=== PATIENT | female | born 1970 | race Caucasian/White ===

== ENCOUNTER 2019-02-26 09:54 | Emergency (ER) | payer SELFPAY ==
[~2019-02-26] VITALS: Ht 160 cm; Wt 90.7 kg
[2019-02-26] MEDS ORDERED: IV NORMAL SALINE 1,000ML 1,000 ML IV SCH (10:07)
--- NOTE | 2019-02-26 10:17 | EKG ---
[address] [address] Test Date: 2019-02-26 Test Time: 10:17:12 Pat Name: CHRIS SWANSON Department: Room: Gender: F [employer]: : 1970 Requested By: VIRI SIMENTAL Order Number: [id number] [place] MD: Measurements Intervals [place] Rate: 83 P: 24 LA: 152 QRS: 31 QRSD: 86 T: 14 QT: 366 QTc: 436 Interpretive Statements SINUS RHYTHM NO SPECIFIC ECG ABNORMALITIES RI6.01 No previous ECG available for comparison
--- NOTE | 2019-02-26 10:35 | PHYS DOC ---
Past History Past Medical History: Anxiety, Bipolar, Schizophrenia, Other Past Surgical History: No Surgical History Smoking: Cigarettes Alcohol Use: Occasionally Drug Use: Methamphetamine Adult General Chief Complaint Chief Complaint: SHORTNESS OF BREATH HPI HPI Patient is a 48-year-old female presents complaining of feeling like she was going to pass out. This happened this morning. Lasted for 4-5 minutes. No worsening with exertion. She reported some chest heaviness, this did not get any worse with ambulation. No respirophasic chest discomfort. Symptoms have resolved. She denies any nausea or vomiting. No trauma. She reports that her last use of methamphetamine was one week ago. She does smoke 4-5 cigarettes a day.[] Review of Systems Review of Systems Constitutional: Denies fever or chills [] Eyes: Denies change in visual acuity, redness, or eye pain [] HENT: Denies nasal congestion or sore throat [] Respiratory: Denies cough or shortness of breath [] Cardiovascular: No additional information not addressed in HPI [] GI: Denies abdominal pain, nausea, vomiting, bloody stools or diarrhea [] : Denies dysuria or hematuria [] Musculoskeletal: Denies back pain or joint pain [] Integument: Denies rash or skin lesions [] Neurologic: Denies headache, focal weakness or sensory changes [] Endocrine: Denies polyuria or polydipsia [] All other systems were reviewed and found to be within normal limits, except as documented in this note. Current Medications Current Medications Current Medications Medications (Trade) Dose Ordered Sig/[facility] Start Time Stop Time Status Last Admin Dose Admin Sodium Chloride 1,000 ml @ 1,000 mls/hr Q1H 02/26/19 10:07 02/26/19 11:06 02/26/19 10:28 1,000 MLS/HR Allergies Allergies Allergies Coded Allergies Type Severity Reaction Last Updated Verified Penicillins Allergy Severe anaphylaxis 02/26/19 Yes morphine Allergy Severe anaphylaxis 11/24/16 Yes carbamazepine Allergy Intermediate 02/26/19 Yes Physical Exam Physical Exam Constitutional: Well developed, well nourished, no acute distress, non-toxic appearance. [] HENT: Normocephalic, atraumatic, bilateral external ears normal, oropharynx moist, no oral exudates, nose normal. [] Eyes: PERRLA, EOMI, conjunctiva normal, no discharge. [] Neck: Normal range of motion, no tenderness, supple, no stridor. [] Cardiovascular:Heart rate regular rhythm, no murmur [] Lungs & Thorax: Bilateral breath sounds clear to auscultation [] Abdomen: Bowel sounds normal, soft, no tenderness, no masses, no pulsatile masses. [] Skin: Warm, dry, no erythema, no rash. [] Back: No tenderness, no CVA tenderness. [] Extremities: No tenderness, no cyanosis, no clubbing, ROM intact, no edema. [] Neurologic: Alert and oriented X 3, normal motor function, normal sensory function, no focal deficits noted. [] Psychologic: Affect normal, judgement normal, mood normal. [] Current Patient Data Vital Signs Vital Signs Date Time Temp Pulse Resp B/P (MAP) Pulse Ox O2 Delivery O2 Flow Rate FiO2 02/26/19 09:58 97.6 94 18 97 Room Air EKG EKG EKG shows a sinus rhythm at 83 bpm, normal axis, QTC of 436 ms, no ST elevations. Interpreted by me at 1017[] Radiology/Procedures Radiology/Procedures PORTABLE CHEST 1V History: Near-syncope. Comparison with February 11, 2010. Heart size not enlarged. No evidence of pneumothorax. No pleural effusion. No consolidation. Bones appear intact. IMPRESSION: No evidence of consolidating infiltrate.[] Course & Med Decision Making Course & Med Decision Making Pertinent Labs and Imaging studies reviewed. (See chart for details) ED course: Patient arrived, was placed in bed, and tolerated exam well. She was placed on cardiac cath rn. There were no abnormal heart rhythms noted. Her oxygen saturation remained between 99 and 100% during her emergency department stay. After the return of the laboratory and imaging studies, these were discussed with the patient voiced understanding. All questions were answered. She was discharged in improved condition. Medical decision making: There is no evidence of pneumonia, pneumothorax, acute coronary syndrome. She has no PE risk factors. No evidence of hypoxia.[] Dragon Disclaimer Dragon Disclaimer This electronic medical record was generated, in whole or in part, using a voice recognition dictation system. Departure Departure: Impression: Primary Impression: Shortness of breath Disposition: HOME, SELF-CARE Condition: IMPROVED Referrals: PCPWILLIAM (PCP) Patient Instructions: Shortness of Breath Additional Instructions: Follow-up with your regular doctor in 2 days. If you do not have a regular doctor list of local clinics will be provided for you. Stop smoking! Do not use any drugs or medications that are not prescribed for you, they may kill you! Return to the ER if worsening difficulty breathing or any other concerns. VIRI SIMENTAL DO Feb 26, 2019 10:35
--- NOTE | 2019-02-26 10:41 | RAD ---
PORTABLE CHEST 1V History: Near-syncope. Comparison with February 11, 2010. Heart size not enlarged. No evidence of pneumothorax. No pleural effusion. No consolidation. Bones appear intact. IMPRESSION: No evidence of consolidating infiltrate. Electronically signed by: Mich Rojo MD (02/26/2019 10:38 AM) [id number]
[2019-02-26 10:50] LABS: BASO # 0.1 x10^3/uL (0.0-0.2); BASO % 1 % (0-3); EOS % 0 % (0-3); HEMATOCRIT 40.4 % (36.0-47.0); HEMOGLOBIN 13.6 g/dL (12.0-15.5); LYMPH # 1.4 x10^3/uL (1.0-4.8); LYMPH % 17 % (24-48); MEAN CORPUSCULAR HEMOGLOBIN 29 pg (25-35); MEAN CORPUSCULAR HGB CONC 34 g/dL (31-37); MEAN CORPUSCULAR VOLUME 84 fL (79-100); MONO # 0.3 x10^3/uL (0.0-1.1); MONO % 4 % (0-9); NEUT # 6.3 x10^3uL (1.8-7.7); NEUT % 77 % (31-73); PLATELET COUNT 300 x10^3/uL (140-400); RED CELL DISTRIBUTION WIDTH 14.5 % (11.5-14.5); WHITE BLOOD COUNT 8.2 x10^3/uL (4.0-11.0)
[2019-02-26 11:06] LABS: PREG TEST PT QUAL NEGATIVE (NEG)
[2019-02-26 11:10] LABS: ALBUMIN 3.6 g/dL (3.4-5.0); ALBUMIN/GLOBULIN RATIO 0.9 (1.0-1.7); CALCIUM 9.7 mg/dL (8.5-10.1); CREATININE 0.8 mg/dL (0.6-1.0); GFR 77.2; TOTAL BILIRUBIN 0.3 mg/dL (0.2-1.0); TOTAL PROTEIN 7.6 g/dL (6.4-8.2)
[2019-02-26 11:11] LABS: AMPHETAMINE/METHAMPHETAMINE NEG (NEG); BARBITURATES NEG (NEG); BENZODIAZEPINES NEG (NEG); CANNABINOIDS NEG (NEG); COCAINE NEG (NEG); METHADONE NEG (NEG); OPIATES NEG (NEG); PHENCYCLIDINE NEG (NEG)
[2019-02-26 11:23] LABS: BACTERIA,URINE FEW /HPF (0-FEW); BILIRUBIN,URINE NEG (NEG); CLARITY,URINE HAZY; COLOR,URINE STRAW; GLUCOSE,URINE NEG (NEG); NITRITE,URINE NEG (NEG); RBC,URINE OCC /HPF (0-2); SQUAMOUS EPITHELIAL CELL,UR FEW /LPF; UROBILINOGEN,URINE 0.2 mg/dL (0.2 mg/dL); WBC,URINE OCC /HPF (0-4)
[2019-02-26 12:05] VITALS: BP 105/56
== END 2019-02-26 12:06 | disposition home or self-care (01) ==
LOC: ER 09:54
DX: R06.02 Shortness of breath (principal); R55 Syncope and collapse; F41.9 Anxiety disorder, unspecified; F31.9 Bipolar disorder, unspecified; F20.9 Schizophrenia, unspecified; F17.210 Nicotine dependence, cigarettes, uncomplicated; F15.10 Other stimulant abuse, uncomplicated; Z88.5 Allergy status to narcotic agent; Z88.0 Allergy status to penicillin; Z88.8 Allergy status to other drugs, medicaments and biological substances
CPT/HCPCS: 36415; 71045; 80053; 80307; 81001; 83690; 83735; 83880; 84484; 84703; 85025; 85610; 93005; 96360; 99285-25; J7030

== ENCOUNTER → 2020-04-20 | Outpatient (CLI) | payer SELFPAY ==
--- NOTE | 2020-04-20 16:39 | RAD ---
DATE: 04/20/2020 8:45 AM EXAM: DIGITAL SCREEN BILAT W/CAD HISTORY: Screening . Patient has very tender breasts with limited tolerance of mammographic compression and positioning. COMPARISON: 07/25/2011, and the bilateral MLO views of 05/18/2019 Bilateral CC and MLO views of the breasts were performed. Bilateral breast tomosynthesis was performed in CC and MLO projections. This study was interpreted with the benefit of Computerized Aided Detection (CAD). FINDINGS: Breast Density: SCATTERED The breast parenchyma shows scattered fibroglandular densities. Breast parenchyma level B No suspicious masses, microcalcifications or architectural distortion is present to suggest malignancy in either breast. The visualized axillae are unremarkable. IMPRESSION: No mammographic evidence of malignancy. BI-RADS CATEGORY: 1 NEGATIVE RECOMMENDED FOLLOW-UP: 12M 12 MONTH FOLLOW-UP Annual screening mammography is recommended, unless clinically indicated sooner based on symptoms or change in physical exam. PQRS compliance statement: Patient information was entered into a reminder system with a target due date for the next mammogram. Mammography is a sensitive method for finding small breast cancers, but it does not detect them all and is not a substitute for careful clinical examination. A negative mammogram does not negate a clinically suspicious finding and should not result in delay in biopsying a clinically suspicious abnormality. "Our facility is accredited by the [employer] Mammography Program."
== END | disposition home or self-care (01) ==
LOC: MAMMO 08:44
DX: Z12.31 Encounter for screening mammogram for malignant neoplasm of breast (principal)
CPT/HCPCS: 77067

== ENCOUNTER → 2020-08-04 | Outpatient (CLI) | payer OTHER ==
[~2020-08-04] MED LIST: HYDR25TA PO
[2020-08-05 05:08] LABS: T3 TOTAL 110 ng/dL (71-180); THYROPEROXIDASE ANTIBODY 16 IU/mL (0-34); THYROXINE 7.4 ug/dL (4.5-12.0)
[2020-08-05 18:08] LABS: ANTI-DS DNA 1 IU/mL (0-9); RNP ANTIBODY <0.2 AI (0.0-0.9); SMITH AB <0.2 AI (0.0-0.9); SSA ANTIBODY <0.2 AI (0.0-0.9); SSB ANTIBODY <0.2 AI (0.0-0.9)
== END ==
LOC: LAB 10:58
PROVIDERS: ATTEND Nurse Practitioner Family
DX: R76.8 Other specified abnormal immunological findings in serum (principal); R79.82 Elevated C-reactive protein (CRP)
CPT/HCPCS: 36415; 84436; 84443; 84480; 86235; 86255; 86376; 86800

== ENCOUNTER → 2020-08-07 | Outpatient (CLI) | payer OTHER | LOC: LAB 16:14 | PROVIDERS: ATTEND Nurse Practitioner Family | DX: R76.8 Other specified abnormal immunological findings in serum (principal); R79.82 Elevated C-reactive protein (CRP) | CPT/HCPCS: 36415 ==

== ENCOUNTER 2020-08-09 07:50 | Emergency (ER) | payer OTHER ==
[~2020-08-09] VITALS: Ht 160 cm; Wt 96.5 kg
--- NOTE | 2020-08-09 08:12 | PHYS DOC ---
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 Is starting a new job today and took 2 tablets of Mu cinex (has never taken this medication before) around 6 AM because she has a chronic cough from her COPD. Is worried she will not be able to work if she is coughing at work due to covid19. States she has been too busy and forgot to take her olanzapine the past 3 days. Cough is not new and is not associated with any sore throat, fever, hemoptysis, nausea, vomiting or flulike illness. Denies any SI or HI. Also reports increased thirst/polydipsia, nausea and dry mouth. Has voided 2x today. Review of Systems: Review of Systems: Constitutional: Denies fever or chills Eyes: Denies change in visual acuity HENT: Denies nasal congestion or sore throat Respiratory: Denies hemoptysis or shortness of breath Cardiovascular: Denies chest pain or edema or syncope GI: Denies abdominal pain, nausea, vomiting, bloody stools or diarrhea : Denies dysuria or hematuria Musculoskeletal: Denies back pain or joint pain or cva ttp Integument: Denies rash Neurologic: Denies headache, focal weakness or sensory changes or neck stiffness Endocrine: Denies polyuria or suprapubic discomfort Lymphatic: Denies swollen glands Psychiatric: Denies depression or anxiety Allergies: Allergies: Allergies Coded Allergies Type Severity Reaction Last Updated Verified Penicillins Allergy Severe anaphylaxis 02/26/19 Yes morphine Allergy Severe anaphylaxis 11/24/16 Yes carbamazepine Allergy Intermediate 02/26/19 Yes Physical Exam: PE: Constitutional: Well developed, well nourished, no acute distress, non-toxic appearance. HENT: Normocephalic, atraumatic, no angioedema, speaking in full sentences with no drooling or voice changes Eyes: EOMI, conjunctiva normal, no discharge. Neck: Normal range of motion, supple, Cardiovascular: S1/2 present, regular rhythm, tachycardic Lungs & Thorax: Speaking in full sentences, bilateral equal chest rise, no tachypnea or increased work of breathing, no wheezing/rales/crackles Abdomen: soft, no tenderness, Skin: Warm, dry, no erythema, no rash. [] Back: No tenderness, Extremities: No tenderness, no cyanosis, no edema Neurologic: Alert and oriented X 3, normal motor function, normal sensory function, no focal deficits noted. [] Psychologic: Very anxious with rapid speech and jittery, no tremors EKG: EKG: [] Radiology/Procedures: Radiology/Procedures: [] Heart Score: Risk Factors: Risk Factors: DM, Current or recent (<one month) smoker, HTN, HLP, family history of CAD, obesity. Risk Scores: Score 0 - 3: 2.5% MACE over next 6 weeks - Discharge Home Score 4 - 6: 20.3% MACE over next 6 weeks - Admit for Clinical Observation Score 7 - 10: 72.7% MACE over next 6 weeks - Early Invasive Strategies Course & Med Decision Making: Course & Med Decision Making Pertinent Labs and Imaging studies reviewed. (See chart for details) Concern for acute panic attack, anxiety versus medication adverse effect. Offered Xanax although patient does not have a ride home. Will prescribe Atarax prn. Strict ED return precautions were given for inability urinate, fever, chest pain, dyspnea, SI or HI. Encouraged urgent outpatient follow-up with PMD and psychiatry. Life-threatening processes were considered but are low suspicion at this time, given history and physical exam. Pt was educated on all prescription medications and adverse effects. All patient's questions were answered and pt was stable at time of discharge. Life/limb-threatening differential includes but is not limited to, end organ damage/sepsis, trauma/abuse/neglect, neurologic deficit, alcohol/drug ingestion, toxidrome, suicidal/homicidal ideations plans or attempts, psychosis or mental illness resulting in self neglect and inability to care for self. I spoken with the patient and her caregivers. I explained the patient's condition, diagnoses and treatment plan based on the information available to me at this time. I have answered the patient and her caregiver's questions and addressed any concerns. The patient and her caregivers have a good understanding of patient's diagnosis, condition and treatment plan as can be expected at this point. Vital signs have been stable. Patient's condition is stable and appropriate for discharge from the emergency department. Patient will pursue further outpatient evaluation with primary care physician or other designated or consulting physician as outlined in the discharge instructions. The patient and/or caregivers are agreeable to this plan of care and follow-up instructions have been explained in detail. The patient and/or caregivers have received these instructions in written form and have expressed an understanding of the discharge instructions. The patient and/or caregivers are aware that any significant change of condition or worsening of symptoms should prompt immediate return to this or the closest emergency department or call to 911. Caleb Disclaimer: [email or web address] Disclaimer: This electronic medical record was generated, in whole or in part, using a voice recognition dictation system. Departure Departure: Impression: Primary Impression: Anxiety Additional Impression: Medication adverse effect Disposition: 01 DC HOME SELF CARE/HOMELESS Condition: STABLE Referrals: PCP,NO (PCP) FOLLOW UP WITH FAMILY MEDICINE: [facility] [address] [place] [address] Instructions: Anxiety and Panic Attacks, Drug Toxicity Additional Instructions: FOLLOW UP WITH PSYCHIATRY: [facility] [address] [place] [address] [facility] [address] [place] [address] Nubia Woodard [facility] [address], [address] [place] [address] EMERGENCY DEPARTMENT GENERAL DISCHARGE INSTRUCTIONS Thank you for coming to [facility] (ED) today and trusting us with you care. We trust that you had a positivie experience in our Emergency Department. If you wish to speak to the department management, you may call the director at [phone]. YOUR FOLLOW UP INSTRUCTIONS ARE FOLLOWS: 1. Do you have a private Doctor? If you do not have a private doctor, please ask for a resource list of physicians or clinics that may be able to assist you with follow up care. 2. The Emergency Physician has interpreted your x-rays. The X-Ray specialist will also review them. If there is a change in the findings, you will be notified in 48 hours when at all possible. 3. A lab test or culture has been done, your results will be reviewed and you will be notified if you need a change in treatment. ADDITIONAL INSTRUCTIONS AND INFORMATION: 1. Your care today has been supervised by a physician who is specially trained in emergency care. Many problems require more than one evaluation for a complete diagnosis and treatment. We recommend that you schedule your follow up appointment as recommended to ensure complete treatment of you illness or injury. If you are unable to obtain follow up care and continue to have a problem, or if your condition worsens, we recommend that you return to the ED. 2. We are not able to safely determine your condition over the phone nor are we able to give sound medical advice over the phone. For these safety reasons, if you call for medical advice we will ask you to come to the ED for further evaluation. 3. If you have any questions regarding these discharge instructions please call the ED at [phone]. SAFETY INFORMATION: In the interest of safety, wellness, and injury prevention; we encourage you to wear your sealbelt, if you smoke; quite smoking, and we encourage family to use a protective helmet for bicycling and other sporting events that present an increased risk for head injury. IF YOUR SYMPTOMS WORSEN OR NEW SYMPTOMS DEVELOP, OR YOU HAVE CONCERNS ABOUT YOUR CONDITION; OR IF YOUR CONDITION WORSENS WHILE YOU ARE WAITING FOR YOUR FOLLOW UP APPOINTMENT; EITHER CONTACT YOUR PRIMARY CARE DOCTOR, THE PHYSICIAN WHOSE NAME AND NUMBER YOU WERE GIVEN, OR RETURN TO THE ED IMMEDIATELY. Scripts Hydroxyzine Hcl (HYDROXYZINE HCL) 25 Mg Tablet 1 TAB PO PRN BID for anxiety, #10 TAB 0 Refills Be careful as this medication may make you mildly tired. I recommend not driving on this medication or operating heavy machinery. Prov: BUSTER LLOYD DO 08/09/20 BUSTER LLOYD DO Aug 09, 2020 08:12
[2020-08-09] MEDS ORDERED: ALPRAZolam 0.25 MG TABLET PO ONE (08:15)
[2020-08-09] MEDS ORDERED: HYDR25TA PO (08:24)
[2020-08-09 08:38] VITALS: BP 118/85
== END 2020-08-09 08:40 | disposition home or self-care (01) ==
LOC: ER 07:50
DX: F41.9 Anxiety disorder, unspecified (principal); T48.4X5A Adverse effect of expectorants, initial encounter; F31.9 Bipolar disorder, unspecified; F20.9 Schizophrenia, unspecified; F17.210 Nicotine dependence, cigarettes, uncomplicated; F15.10 Other stimulant abuse, uncomplicated; Z88.0 Allergy status to penicillin; Z88.5 Allergy status to narcotic agent; Z88.8 Allergy status to other drugs, medicaments and biological substances; Y92.89 Other specified places as the place of occurrence of the external cause
CPT/HCPCS: 99283

== ENCOUNTER → 2020-09-05 | Outpatient (CLI) | payer OTHER ==
[2020-08-09 08:38] VITALS: BP 118/85
--- NOTE | 2020-09-05 14:14 | RAD ---
EXAM: CHEST 2 VIEWS. HISTORY: Chronic obstructive pulmonary disease, cough. COMPARISON: 02/26/2019. FINDINGS: Frontal and lateral views of the chest are obtained. There are no confluent infiltrates. There is no pneumothorax or pleural effusion. The heart is not en larged. Cholecystectomy clips and an inferior vena cava filter are noted. IMPRESSION: 1. No confluent infiltrates. Electronically signed by: Rupert Gracia MD (09/05/2020 2:12 PM) [facility]
== END ==
LOC: RAD 10:11
PROVIDERS: ATTEND Nurse Practitioner Family
DX: R05 Cough (principal); J43.9 Emphysema, unspecified; Z90.49 Acquired absence of other specified parts of digestive tract
CPT/HCPCS: 71046

== ENCOUNTER 2020-11-14 02:21 | Emergency (ER) | payer SELFPAY ==
[~2020-11-14] VITALS: Ht 160 cm; Wt 96.5 kg
[2020-11-14 02:21] VITALS: BP 159/96
[2020-11-14] MEDS ORDERED: IV NORMAL SALINE 1,000ML 1,000 ML IV ONE (02:45)
[2020-11-14] MEDS ORDERED: ONDANSETRON PF 4 MG/2 ML VIAL. IVP ONE (02:45)
--- NOTE | 2020-11-14 02:54 | PHYS DOC ---
Past History Past Medical History: Anxiety, Asthma, Bipolar, COPD, Schizophrenia, Other Past Surgical History: Cholecystectomy, Tubal ligation Smoking: Cigarettes Alcohol Use: Occasionally Drug Use: Methamphetamine General Adult EDM: Chief Complaint: CELLULITIS HPI: HPI: Patient is a 50-year-old female brought in by EMS for chills, nausea, and left lower extremity pain and redness. Patient states that yesterday she cut her left kaba when she actually hit on the coffee table. Noticed around 8 PM about 6 hours prior to arrival that she was having pain after she stepped down and noticed the redness on her left lower leg. Denies any purulent drainage. She was recently started on hydroxychloroquine for antiphospholipid syndrome. States she felt well until 8 PM. Review of Systems: Review of Systems: All other systems within normal limits except for as noted in the HPI Current Medications: Current Meds: Current Medications Medications (Trade) Dose Ordered Sig/Chip Start Time Stop Time Status Last Admin Dose Admin Fentanyl Citrate (Fentanyl 2ml Vial) 50 mcg 1X ONCE 11/14/20 02:45 11/14/20 02:47 DC Ondansetron HCl (Zofran) 4 mg 1X ONCE 11/14/20 02:45 11/14/20 02:47 DC Sodium Chloride 1,000 ml @ 1,000 mls/hr 1X ONCE 11/14/20 02:45 11/14/20 03:44 Allergies: Allergies: Allergies Coded Allergies Type Severity Reaction Last Updated Verified Penicillins Allergy Severe anaphylaxis 02/26/19 Yes morphine Allergy Severe anaphylaxis 11/24/16 Yes carbamazepine Allergy Intermediate 02/26/19 Yes sulfamethoxazole Allergy Unknown 08/09/20 Yes trimethoprim Allergy Unknown 08/09/20 Yes Physical Exam: PE: Constitutional: Well developed, well nourished, no acute distress, non-toxic appearance. [] HENT: Normocephalic, atraumatic, bilateral external ears normal, nose normal. [] Eyes: PERRLA, conjunctiva normal, no discharge. [] Neck: No rigidity, supple, no stridor. [] Cardiovascular: Regular rate and rhythm, brisk cap refill [] Lungs & Thorax: Non labored symmetric respirations, no tachypnea or respiratory distress [] Abdomen: Soft, nondistended. Skin: Warm, dry, superficial abrasion to left anterior kaba, surrounding warmth and erythema, no crepitus or fluctuance. [] Back: Unremarkable Extremities: No deformities, range of motion grossly intact, no lower extremity edema [] Neurologic: Alert and oriented X 3, no focal deficits noted. [] Psychologic: Affect normal, judgement normal, mood normal. [] EKG: EKG: [] Radiology/Procedures: Radiology/Procedures: Study: XR LT TIBIA + FIBULA Indication: Infection. Comparison: None. Findings: No acute fracture, erosion or periostitis. Possible sequela of remote trauma at the tip of the lateral malleolus. Within normal limits alignment at the knee and ankle joints. Reticulation of the subcutaneous fat as seen at the anteromedial aspect of the distal lower leg along the tibial diaphysis. Impression: No acute osseous abnormality. Reticulation of the subcutaneous fat at the region of reported infection without appreciable soft tissue gas or retained radiopaque foreign body. [] Heart Score: Risk Factors: Risk Factors: DM, Current or recent (<one month) smoker, HTN, HLP, family history of CAD, obesity. Risk Scores: Score 0 - 3: 2.5% MACE over next 6 weeks - Discharge Home Score 4 - 6: 20.3% MACE over next 6 weeks - Admit for Clinical Observation Score 7 - 10: 72.7% MACE over next 6 weeks - Early Invasive Strategies Course & Med Decision Making: Course & Med Decision Making Given 40 mEq of potassium p.o. emergency department will continue with potassium as outpatient. Labs consistent with cellulitis, LRINEC score 5= low risk of neck fasc, no free air seen on x-ray. Patient's mother is at bedside and we discussed the plan, follow-up and return to ED precautions. Pertinent Labs and Imaging studies reviewed. (See chart for details) [] Dragon Disclaimer: Dragon Disclaimer: This electronic medical record was generated, in whole or in part, using a voice recognition dictation system. Departure Departure: Impression: Primary Impression: Hypokalemia Additional Impression: Cellulitis of left lower leg Disposition: 01 DC HOME SELF CARE/HOMELESS Condition: STABLE Patient Instructions: Cellulitis, [id number] Additional Instructions: [facility] for primary care follow-up Address: [address] [address] Scripts Clindamycin Hcl (CLINDAMYCIN HCL) 300 Mg Capsule 1 CAP PO TID for antibiotic for 10 Days, #30 CAP Prov: KHANG DOYLE MD 11/14/20 Potassium Chloride (POTASSIUM CHLORIDE ) 20 Meq Tablet.er 20 MEQ PO DAILY for SUPPLEMENT for 5 Days, #5 TAB Prov: KHANG DOYLE MD 11/14/20 KHANG DOYLE MD Nov 14, 2020 02:54
[2020-11-14] MEDS ORDERED: CLINDAMYCIN 600MG PREMIX 50 ML IV ONE (03:15)
[2020-11-14 03:23] LABS: BASO # 0.1 x10^3/uL (0.0-0.2); BASO % 1 % (0-3); EOS % 0 % (0-3); HEMATOCRIT 39.4 % (36.0-47.0); HEMOGLOBIN 12.9 g/dL (12.0-15.5); LYMPH # 1.2 x10^3/uL (1.0-4.8); LYMPH % 9 % (24-48); MEAN CORPUSCULAR HEMOGLOBIN 27 pg (25-35); MEAN CORPUSCULAR HGB CONC 33 g/dL (31-37); MEAN CORPUSCULAR VOLUME 83 fL (79-100); MONO # 0.6 x10^3/uL (0.0-1.1); MONO % 4 % (0-9); NEUT # 11.5 x10^3uL (1.8-7.7); NEUT % 86 % (31-73); PLATELET COUNT 310 x10^3/uL (140-400); RED BLOOD COUNT 4.73 x10^6/uL (3.50-5.40); RED CELL DISTRIBUTION WIDTH 14.1 % (11.5-14.5); WHITE BLOOD COUNT 13.4 x10^3/uL (4.0-11.0)
[2020-11-14 03:42] LABS: ALBUMIN 3.9 g/dL (3.4-5.0); ALBUMIN/GLOBULIN RATIO 0.9 (1.0-1.7); CALCIUM 8.9 mg/dL (8.5-10.1); TOTAL PROTEIN 8.2 g/dL (6.4-8.2)
[2020-11-14 03:43] LABS: C REACTIVE PROTEIN 21.5 mg/L (0-3.3); CREATININE 0.9 mg/dL (0.6-1.0); GFR 66.8; MAGNESIUM 2.1 mg/dL (1.8-2.4); TOTAL BILIRUBIN 0.8 mg/dL (0.2-1.0)
[2020-11-14 03:45] LABS: POTASSIUM 2.9 mmol/L (3.5-5.1)
--- NOTE | 2020-11-14 04:07 | RAD ---
Study: XR LT TIBIA + FIBULA Indication: Infection. Comparison: None. Findings: No acute fracture, erosion or periostitis. Possible sequela of remote trauma at the tip of the latera l malleolus. Within normal limits alignment at the knee and ankle joints. Reticulation of the subcutaneous fat as seen at the anteromedial aspect of the distal lower leg along the tibial diaphysis. Impression: No acute osseous abnormality. Reticulation of the subcutaneous fat at the region of reported infectio n without appreciable soft tissue gas or retained radiopaque foreign body. Electronically signed by: HAILEY HOPKINS MD (11/14/2020 4:04 AM) [facility]
[2020-11-14] MEDS ORDERED: POTASSIUM CHLORIDE 20 MEQ TABLET.ER. PO ONE (04:15)
[2020-11-14] MEDS ORDERED: POTA20TA4 PO (04:41)
[2020-11-14] MEDS ORDERED: CLIN300C9 PO (04:41)
[2020-11-14] MEDS ORDERED: ONDANSETRON ODT 4 MG TAB.RAPDIS PO ONE (05:15)
[2020-11-14] MEDS ORDERED: ONDANSETRON ODT 4 MG TAB.RAPDIS ONE (05:17)
== END 2020-11-14 04:50 | disposition home or self-care (01) ==
LOC: ER 02:21
DX: S80.812A Abrasion, left lower leg, initial encounter (principal); L03.116 Cellulitis of left lower limb; E87.6 Hypokalemia; J44.9 Chronic obstructive pulmonary disease, unspecified; F31.9 Bipolar disorder, unspecified; F20.9 Schizophrenia, unspecified; F41.9 Anxiety disorder, unspecified; F17.210 Nicotine dependence, cigarettes, uncomplicated; Z88.0 Allergy status to penicillin; Z88.5 Allergy status to narcotic agent; Z88.2 Allergy status to sulfonamides; Z88.1 Allergy status to other antibiotic agents; W22.8XXA Striking against or struck by other objects, initial encounter; Y93.89 Activity, other specified; Y92.89 Other specified places as the place of occurrence of the external cause; Y99.8 Other external cause status
CPT/HCPCS: 36415; 73590; 80053; 82550; 83605; 83735; 83874; 85025; 85610; 86140; 87040; 96365; 96375; 99284; J2405; J3010; J3490; J7030

== ENCOUNTER 2020-12-12 08:54 | Emergency (ER) | payer SELFPAY ==
[~2020-12-12] VITALS: Ht 160 cm; Wt 95.2 kg
[~2020-12-12 08:54] MED LIST changes: +CLIN300C9 PO; +POTA20TA4 PO
[2020-12-12] MEDS ORDERED: ONDANSETRON PF 4 MG/2 ML VIAL. IVP ONE (09:15)
--- NOTE | 2020-12-12 09:30 | RAD ---
XR ABDOMEN 1V History: Reason: abdominal pain / Spl. Instructions: / History: Technique: Supine views of the abdomen. Comparison: None. Findings: Mild small bowel gas. Air and stool scattered throughout the colon. IVC filter noted. Surgical clips right upper quadrant. Imaged lung bases are unremarkable. Impression: 1. Nonobstructed bowel gas pattern. Electronically signed by: Kevin Cottrell DO (12/12/2020 9:27 AM) [id number]
[2020-12-12 09:38] VITALS: BP 124/95
[2020-12-12 09:44] LABS: BASO % 1 % (0-3); EOS % 1 % (0-3); HEMATOCRIT 41.2 % (36.0-47.0); HEMOGLOBIN 13.6 g/dL (12.0-15.5); LYMPH # 1.6 x10^3/uL (1.0-4.8); LYMPH % 21 % (24-48); MEAN CORPUSCULAR HEMOGLOBIN 28 pg (25-35); MEAN CORPUSCULAR HGB CONC 33 g/dL (31-37); MEAN CORPUSCULAR VOLUME 84 fL (79-100); MONO # 0.3 x10^3/uL (0.0-1.1); MONO % 4 % (0-9); NEUT # 5.7 x10^3uL (1.8-7.7); NEUT % 74 % (31-73); PLATELET COUNT 297 x10^3/uL (140-400); RED BLOOD COUNT 4.92 x10^6/uL (3.50-5.40); RED CELL DISTRIBUTION WIDTH 14.3 % (11.5-14.5); WHITE BLOOD COUNT 7.7 x10^3/uL (4.0-11.0)
[2020-12-12 09:55] LABS: CALCIUM 9.4 mg/dL (8.5-10.1); CREATININE 0.8 mg/dL (0.6-1.0); GFR 76.6; POTASSIUM 3.8 mmol/L (3.5-5.1)
[2020-12-12 10:01] LABS: ALBUMIN 3.6 g/dL (3.4-5.0); ALBUMIN/GLOBULIN RATIO 0.9 (1.0-1.7); TOTAL BILIRUBIN 0.5 mg/dL (0.2-1.0); TOTAL PROTEIN 7.6 g/dL (6.4-8.2)
[2020-12-12 10:06] LABS: PREG TEST PT QUAL NEGATIVE (NEG)
[2020-12-12] MEDS ORDERED: ONDA4TAB7 PO (11:12)
--- NOTE | 2020-12-12 11:12 | PHYS DOC ---
Past History Past Medical History: Bipolar, Constipation, Other Additional Past Medical Histor: Factor Five Past Surgical History: Cholecystectomy, Tubal ligation Smoking: Cigarettes Alcohol Use: Occasionally Drug Use: Methamphetamine Adult General Chief Complaint Chief Complaint: NAUSEA/VOMITING/DIARRHEA [facility] HPI Patient is a 42-year-old female with a documented history of constipation anxiety disorder presenting emergency department for new onset of nausea and diarrhea. Patient states this started with mild nausea approximately 4 days a go. Patient states at that time she did she was constipated and had not had a bowel movement for 4 days. Patient states that she took a "bowel cleanse p.o. oral regimen and was feeling better until 2 days ago when she started having mild amount of diarrhea. Patient states that she woke up this morning and mixed loose watery diarrhea and had ongoing nausea. Patient denies any acute abdominal pain, fever, chills, vomiting. Denies any history of similar symptoms. Review of Systems Review of Systems Constitutional: Denies fever or chills [] Eyes: Denies change in visual acuity, redness, or eye pain [] HENT: Denies nasal congestion or sore throat [] Respiratory: Denies cough or shortness of breath [] Cardiovascular: No additional information not addressed in HPI [] GI: Denies abdominal pain, nausea, vomiting, bloody stools or diarrhea [] : Denies dysuria or hematuria [] Musculoskeletal: Denies back pain or joint pain [] Integument: Denies rash or skin lesions [] Neurologic: Denies headache, focal weakness or sensory changes [] Endocrine: Denies polyuria or polydipsia [] All other systems were reviewed and found to be within normal limits, except as documented in this note. Current Medications Current Medications Current Medications Medications (Trade) Dose Ordered Sig/Chip Start Time Stop Time Status Last Admin Dose Admin Ondansetron HCl (Zofran) 4 mg 1X ONCE 12/12/20 09:15 12/12/20 09:22 DC 12/12/20 09:32 4 MG Allergies Allergies Allergies Coded Allergies Type Severity Reaction Last Updated Verified Penicillins Allergy Severe anaphylaxis 12/12/20 Yes morphine Allergy Severe anaphylaxis 12/12/20 Yes carbamazepine Allergy Intermediate 12/12/20 Yes sulfamethoxazole Allergy Unknown 12/12/20 Yes trimethoprim Allergy Unknown 12/12/20 Yes Physical Exam Physical Exam Constitutional: Well developed, well nourished, no acute distress, non-toxic appearance. [] HENT: Normocephalic, atraumatic, bilateral external ears normal, oropharynx moist, no oral exudates, nose normal. [] Eyes: PERRLA, EOMI, conjunctiva normal, no discharge. [] Neck: Normal range of motion, no tenderness, supple, no stridor. [] Cardiovascular:Heart rate regular rhythm, no murmur [] Lungs & Thorax: Bilateral breath sounds clear to auscultation [] Abdomen: Bowel sounds normal, soft, no tenderness, no masses, no pulsatile masses. [] Skin: Warm, dry, no erythema, no rash. [] Back: No tenderness, no CVA tenderness. [] Extremities: No tenderness, no cyanosis, no clubbing, ROM intact, no edema. [] Neurologic: Alert and oriented X 3, normal motor function, normal sensory function, no focal deficits noted. [] Psychologic: Affect normal, judgement normal, mood normal. [] Current Patient Data Vital Signs Vital Signs Date Time Temp Pulse Resp B/P (MAP) Pulse Ox O2 Delivery O2 Flow Rate FiO2 12/12/20 09:38 97.9 92 18 124/95 (105) 99 Room Air Lab Results Laboratory Tests Test 12/12/20 09:29 White Blood Count 7.7 x10^3/uL (4.0-11.0) Red Blood Count 4.92 x10^6/uL (3.50-5.40) Hemoglobin 13.6 g/dL (12.0-15.5) Hematocrit 41.2 % (36.0-47.0) Mean Corpuscular Volume 84 fL (79-100) Mean Corpuscular Hemoglobin 28 pg (25-35) Mean Corpuscular Hemoglobin Concent 33 g/dL (31-37) Red Cell Distribution Width 14.3 % (11.5-14.5) Platelet Count 297 x10^3/uL (140-400) Neutrophils (%) (Auto) 74 % (31-73) H Lymphocytes (%) (Auto) 21 % (24-48) L Monocytes (%) (Auto) 4 % (0-9) Eosinophils (%) (Auto) 1 % (0-3) Basophils (%) (Auto) 1 % (0-3) Neutrophils # (Auto) 5.7 x10^3uL (1.8-7.7) Lymphocytes # (Auto) 1.6 x10^3/uL (1.0-4.8) Monocytes # (Auto) 0.3 x10^3/uL (0.0-1.1) Eosinophils # (Auto) 0.0 x10^3/uL (0.0-0.7) Basophils # (Auto) 0.0 x10^3/uL (0.0-0.2) Sodium Level 138 mmol/L (136-145) Potassium Level 3.8 mmol/L (3.5-5.1) Chloride Level 105 mmol/L (98-107) Carbon Dioxide Level 21 mmol/L (21-32) Anion Gap 12 (6-14) Blood Urea Nitrogen 10 mg/dL (7-20) Creatinine 0.8 mg/dL (0.6-1.0) Estimated GFR (Cockcroft-Gault) 76.6 BUN/Creatinine Ratio 13 (6-20) Glucose Level 113 mg/dL (70-99) H Calcium Level 9.4 mg/dL (8.5-10.1) Total Bilirubin 0.5 mg/dL (0.2-1.0) Aspartate Amino Transferase (AST) 13 U/L (15-37) L Alanine Aminotransferase (ALT) 16 U/L (14-59) Alkaline Phosphatase 74 U/L (46-116) Total Protein 7.6 g/dL (6.4-8.2) Albumin 3.6 g/dL (3.4-5.0) Albumin/Globulin Ratio 0.9 (1.0-1.7) L Lipase 145 U/L (73-393) Serum Test, Qualitative Negative (NEG) EKG EKG [] Radiology/Procedures Radiology/Procedures [] Heart Score C/O Chest Pain: No Risk Factors: Risk Factors: DM, Current or recent (<one month) smoker, HTN, HLP, family history of CAD, obesity. Risk Scores: Risk Factors: DM, Current or recent (<one month) smoker, HTN, HLP, family history of CAD, obesity. Course & Med Decision Making Course & Med Decision Making Pertinent Labs and Imaging studies reviewed. (See chart for details) 50F presenting with nonspecific of diarrhea and nausea. No significant tenderness on exam. At this time without specific pain and tenderness unlikely to represent any evidence of acute appendicitis. Patient already has a cholecystectomy. Suspect mild gastroenteritis. Patient labs were obtained and unremarkable and KUB without any significant findings. After initial valuation patient is requesting to be discharged because he has an appointment with her primary care physician in an hour. Caleb Disclaimer Caleb Disclaimer This electronic medical record was generated, in whole or in part, using a voice recognition dictation system. Departure Departure: Impression: Primary Impression: Gastroenteritis Disposition: 01 DC HOME SELF CARE/HOMELESS Condition: GOOD Referrals: PCP,NO (PCP) Patient Instructions: Viral Gastroenteritis Additional Instructions: EMERGENCY DEPARTMENT GENERAL DISCHARGE INSTRUCTIONS Thank you for coming to [facility] Emergency Department (ED) today and trusting us with you care. We trust that you had a positive experience in our Emergency Department. If you wish to speak to the department management, you may call the Director at [phone]. YOUR FOLLOW UP INSTRUCTIONS ARE FOLLOWS: 1. Do you have a private Doctor? If you do not have a private doctor, please ask for a resource list of physicians or clinics that may be able to assist you with follow up care. 2. The Emergency Physicain has interpreted your x-rays. The X-Ray specialist will also review them. If there is a change in the findings, you will be notified in 48 hours when at all possible. 3. A lab test or culture has been done, your results will be reviewed and you will be notified if you need a change in treatment. ADDITIONAL INSTRUCTIONS AND INFORMATION: 1. Your care today has been supervised by a physician who is specially trained in emergency care. Many problems require more than one evaluation for a complete diagnosis and treatment. We recommend that you schedule your follow up appointment as recommended to ensure complete treatment of you illness or injury. If you are unable to obtain follow up care and continue to have a problem, or if your condition worsens, we recommend that you return to the ED. 2. We are not able to safely determine your condition over the phone nor are we able to give sound medical advice over the phone. For these safety reasons, if you call for medical advice we will ask you to come to the ED for further evaluation. 3. If you have any questions regarding these discharge instructions please call the ED at [phone]. SAFETY INFORMATION: In the interest of safety, wellness, and injury prevention; we encourage you to wear your sealbelt, if you smoke; quite smoking, and we encourage family to use a protective helmet for bicycling and other sporting events that present an increased risk for head injury. IF YOUR SYMPTOMS WORSEN OR NEW SYMPTOMS DEVELOP, OR YOU HAVE CONCERNS ABOUT YOUR CONDITION; OR IF YOUR CONDITION WORSENS WHILE YOU ARE WAITING FOR YOUR FOLLOW UP APPOINTMENT; EITHER CONTACT YOUR PRIMARY CARE DOCTOR, THE PHYSICIAN WHOSE NAME AND NUMBER YOU WERE GIVEN, OR RETURN TO THE ED IMMEDIATELY. Scripts Ondansetron Hcl (ZOFRAN) 4 Mg Tablet 1 TAB PO PRN Q6HRS PRN for NAUSEA, #6 TAB Prov: CASSY SAWYER MD 12/12/20 CASSY SAWYER MD Dec 12, 2020 11:12
== END 2020-12-12 11:35 | disposition home or self-care (01) ==
LOC: ER 08:54
DX: K52.9 Noninfective gastroenteritis and colitis, unspecified (principal); F41.9 Anxiety disorder, unspecified; F31.9 Bipolar disorder, unspecified; F17.210 Nicotine dependence, cigarettes, uncomplicated; Z90.49 Acquired absence of other specified parts of digestive tract; Z98.51 Tubal ligation status; Z88.0 Allergy status to penicillin; Z88.5 Allergy status to narcotic agent; Z88.2 Allergy status to sulfonamides; Z88.1 Allergy status to other antibiotic agents
CPT/HCPCS: 36415; 74018; 80053; 83690; 84703; 85025; 96374; 99284; J2405

== ENCOUNTER 2020-12-17 05:15 | Emergency (ER) | payer SELFPAY ==
[~2020-12-17] VITALS: Ht 160 cm; Wt 94.2 kg
[~2020-12-17 05:15] MED LIST changes: +ONDA4TAB7 PO
--- NOTE | 2020-12-17 05:41 | PHYS DOC ---
Past History Past Medical History: Bipolar, Constipation, Other Additional Past Medical Histor: Factor Five (DENA WILKES MD) Past Surgical History: Cholecystectomy, Tubal ligation (DENA WILKES MD) Smoking: Cigarettes Alcohol Use: Occasionally Drug Use: Methamphetamine (DENA WILKES MD) Adult General Chief Complaint Chief Complaint: NAUSEA/VOMITING/DIARRHEA HPI HPI Patient is a 50-year-old female who presents with nausea and vomiting. States she is in the emergency department about 5 days ago for similar symptoms, was told she had gastroenteritis and was sent home with some nausea medicine. States it helped a little but over the last 5 days she has had nausea, episodes of nonbloody nonbilious emesis over the last couple of days if she tries to eat. States she had not eaten anything substantial in the last 3 days outside of a couple of saltine crackers. States she had not had a bowel movement since last which was watery stool. States she mainly came in because she is unable to eat or drink anything currently because of the nausea. Denies any fevers, headache, chest pain, shortness of breath, dysuria, hematuria or blood in the stool. Denies any recent travel, known ill contacts. States she had her last menstrual cycle about 6 or 7 weeks ago, which is about normal for her now as it seems like they are becoming more irregular as she gets older. Denies any vaginal bleeding/discharge/pain or history of STIs. (DENA WILKES MD) Review of Systems Review of Systems Review of systems otherwise unremarkable except noted in HPI (DENA WILKES MD) Current Medications Current Medications Current Medications Medications (Trade) Dose Ordered Sig/Chip Start Time Stop Time Status Last Admin Dose Admin Iohexol (Omnipaque 300 Mg/ml) 75 ml 1X ONCE 12/17/20 05:45 12/17/20 05:46 UNV Lactated Ringer's 1,000 ml @ 1,000 mls/hr 1X ONCE 12/17/20 05:30 12/17/20 06:29 UNV Ondansetron HCl (Zofran) 8 mg 1X ONCE 12/17/20 05:30 12/17/20 05:31 UNV (DENA WILKES MD) Allergies Allergies Allergies Coded Allergies Type Severity Reaction Last Updated Verified Penicillins Allergy Severe anaphylaxis 12/12/20 Yes morphine Allergy Severe anaphylaxis 12/12/20 Yes carbamazepine Allergy Intermediate 12/12/20 Yes sulfamethoxazole Allergy Unknown 12/12/20 Yes trimethoprim Allergy Unknown 12/12/20 Yes (DENA WILKES MD) Physical Exam Physical Exam Constitutional: Well developed, well nourished, no acute distress, non-toxic appearance. [] HENT: Normocephalic, atraumatic, oropharynx moist, no oral exudates, Eyes: PERRLA, conjunctiva normal, no discharge. [] Neck: Normal range of motion, Cardiovascular:Heart rate regular rhythm, no murmur [] Lungs & Thorax: Bilateral breath sounds clear to auscultation [] Abdomen: Mild distention, generalized tenderness worse around the umbilicus, no masses, no pulsatile masses. [] Skin: Warm, dry, no erythema, no rash. [] Back: no CVA tenderness. [] Extremities: No tenderness, no cyanosis, no edema. [] Neurologic: Alert and oriented X 3, normal motor function, normal sensory function, no focal deficits noted. [] Psychologic: Affect normal, judgement normal, mood normal. [] (DENA WILKES MD) EKG EKG [] (DENA WILKES MD) Radiology/Procedures Radiology/Procedures [] (DENA WILKES MD) Radiology/Procedures IMAGING REPORT Signed PATIENT: CHRIS SWANSON ACCOUNT: [id number] : 1970 LOCATION: ER AGE: 50 SEX: F EXAM STATUS: REG ER ORD. PHYSICIAN: DENA WILKES MD REASON: ab pain / umbilical region, N/V X 7 DAYS, OMNI 300, 75ml PROCEDURE: CT ABD PELV W/ IV CONTRST ONLY PQRS Compliance Statement: One or more of the following individualized dose reduction techniques were utilized for this examination: 1. Automated exposure control 2. Adjustment of the mA and/or kV according to patient size 3. Use of iterative reconstruction technique CT ABDOMEN+PELVIS W Clinical Indication: Reason: ab pain / umbilical region, N/V X 7 DAYS, Comparison: None. Technique: Helical CT imaging of the abdomen and pelvis is performed after 75 cc of Omnipaque 300 IV contrast. Oral contrast not administered. Findings: Cardiac size is normal. The lung bases are clear. There is infrarenal IVC filter. Cholecystectomy. Tiny hypodensity in segment 2 of the liver is too small to further characterize. Liver otherwise homogeneous. The spleen, pancreas, adrenal glands, and abdominal aorta caliber are normal. Kidneys enhance symmetrically, no hydronephrosis. The stomach is unremarkable. The appendix is normal. There is no dilated small bowel. There is no colon wall thickening. No abdominal adenopathy or free fluid. The urinary bladder is normal. Anteverted uterus. There is tiny left ovarian follicle. Right ovary follicle measures 1 cm. There is no pelvic free fluid. Small Schmorl's node superior endplate of T10 vertebral body. IMPRESSION: No acute abdominal or pelvic abnormality. Electronically signed by: Nabeel Matthews MD (12/17/2020 6:27 AM) [facility] DICTATED AND SIGNED BY: NABEEL MATTHEWS MD DATE: 12/17/20618 CC: DENA WILKES MD; NON,STAFF; JANE LLOYDA Lorri DO ~MTH0 0 (PREMA,BUSTER Lorri MONZON) Heart Score C/O Chest Pain: No Risk Factors: Risk Factors: DM, Current or recent (<one month) smoker, HTN, HLP, family history of CAD, obesity. Risk Scores: Risk Factors: DM, Current or recent (<one month) smoker, HTN, HLP, family history of CAD, obesity. (DENA WILKES MD) C/O Chest Pain: No (VOHS,BUSTER M ) Course & Med Decision Making Course & Med Decision Making Patient is a 50-year-old female who presents with several days of nausea and vomiting with abdominal distention and discomfort Vital signs not concerning. Physical exam noted above. Patient placed on monitor with IV access established. Started on IV fluid resuscitation. Given Zofran for nausea. Given morphine for pain. Patient's care transferred to day team. [] (DENA WILKES MD) Course & Med Decision Making Concern for nausea and vomiting with abdominal distention and discomfort and hemodynamically stable patient who is afebrile with no tachycardia. Labs show no leukocytosis or electrolyte abnormality, normal lipase, renal and hepatic function. CT imaging with no surgical abdomen. CT does show tiny liver hypodensity and Schmorl's node at T10. Urinalysis contaminated. Urine drug screen unremarkable. CT imaging printed for patient so she can take to her primary care physician to follow-up liver hypodensity. Patient with complicated medical history including antiphospholipid syndrome and factor V Leiden on Eliquis. Specialist referrals given. Patient reports 4 days of loose watery diarrhea that has since resolved. Denies any recent antibiotics, hospitalizations, history of C. difficile, foreign travel or poorly prepared food. Has no focal localized abdominal pain. Reports chronic back pain but states this is very mild, cannot reproduce pain over T10. Reports her biggest complaint is nausea, coughing improves this. Is tolerating liquids. No melena or hematochezia. Will prescribe Zofran. Will discharge home with strict ED return precautions were given for intractable nausea and vomiting, dehydration, fever or severe abdominal or back pain. Encouraged urgent outpatient follow-up with PMD and GI for definitive evaluation including EGD. Life-threatening processes were considered but are low suspicion at this time, given history, physical exam and ED workup. Pt was educated on all prescription medications and adverse effects. All patient's questions were answered and pt was stable at time of discharge. Life/limb-threatening differential includes but is not limited to, acute coronary syndrome/myocardial infarction, Boerhaave's, DKA, gastrointestinal bleeding, intracranial hemorrhage, ischemic bowel, meningitis, sepsis, surgical abdomen (AAA), toxidrome (drug over/overdose/carbon monoxide, etc), ovarian/testicular torsion, trauma, or infection/sepsis. I spoken with the patient and her caregivers. I explained the patient's condition, diagnoses and treatment plan based on the information available to me at this time. I have answered the patient and her caregiver's questions and addressed any concerns. The patient and her caregivers have a good understanding of patient's diagnosis, condition and treatment plan as can be expected at this point. Vital signs have been stable. Patient's condition is stable and appropriate for discharge from the emergency department. Patient will pursue further outpatient evaluation with primary care physician or other designated or consulting physician as outlined in the discharge instructions. The patient and/or caregivers are agreeable to this plan of care and follow-up instructions have been explained in detail. The patient and/or caregivers have received these instructions in written form and have expressed an understanding of the discharge instructions. The patient and/or caregivers are aware that any significant change of condition or worsening of symptoms should prompt immediate return to this or the closest emergency department or call to [phone]. ([facility],BUSTER Blackmon DO) Dragon Disclaimer Dragon Disclaimer This electronic medical record was generated, in whole or in part, using a voice recognition dictation system. (DENA WILKES MD) Departure Departure: Impression: Primary Impression: Nausea & vomiting Additional Impression: Abdominal distention Disposition: 01 DC HOME SELF CARE/HOMELESS Condition: STABLE Referrals: NON,STAFF (PCP) Follow up with your pcp or internal medicine with: [place] [address] [place] [address] Patient Instructions: Nausea and Vomiting Additional Instructions: FOLLOW UP WITH GASTROENTEROLOGY: For long-term management of nausea, vomiting, & gastritis [facility], [place], [address] [place], [place] [id number] OR [facility] [address], [address], [place] [address] Rheumatology: For management of your antiphospholipid syndrome Elias Howell MD [facility] [address] [place] [address] [address] [place] [address] FOLLOW UP WITH: Hematology/Oncology: for management of factor 5 [facility] Address: [address] [facility] [address] [place] [address] EMERGENCY DEPARTMENT GENERAL DISCHARGE INSTRUCTIONS Thank you for coming to [facility] (ED) today and trusting us with you care. We trust that you had a positivie experience in our Emergency Department. If you wish to speak to the department management, you may call the director at [phone]. YOUR FOLLOW UP INSTRUCTIONS ARE FOLLOWS: 1. Do you have a private Doctor? If you do not have a private doctor, please ask for a resource list of physicians or clinics that may be able to assist you with follow up care. 2. The Emergency Physician has interpreted your x-rays. The X-Ray specialist will also review them. If there is a change in the findings, you will be notified in 48 hours when at all possible. 3. A lab test or culture has been done, your results will be reviewed and you will be notified if you need a change in treatment. ADDITIONAL INSTRUCTIONS AND INFORMATION: 1. Your care today has been supervised by a physician who is specially trained in emergency care. Many problems require more than one evaluation for a complete diagnosis and treatment. We recommend that you schedule your follow up appointment as recomme nded to ensure complete treatment of you illness or injury. If you are unable to obtain follow up care and continue to have a problem, or if your condition worsens, we recommend that you return to the ED. 2. We are not able to safely determine your condition over the phone nor are we able to give sound medical advice over the phone. For these safety reasons, if you call for medical advice we will ask you to come to the ED for further evaluation. 3. If you have any questions regarding these discharge instructions please call the ED at [phone]. SAFETY INFORMATION: In the interest of safety, wellness, and injury prevention; we encourage you to wear your sealbelt, if you smoke; quite smoking, and we encourage family to use a protective helmet for bicycling and other sporting events that present an increased risk for head injury. IF YOUR SYMPTOMS WORSEN OR NEW SYMPTOMS DEVELOP, OR YOU HAVE CONCERNS ABOUT YOUR CONDITION; OR IF YOUR CONDITION WORSENS WHILE YOU ARE WAITING FOR YOUR FOLLOW UP APPOINTMENT; EITHER CONTACT YOUR PRIMARY CARE DOCTOR, THE PHYSICIAN WHOSE NAME AND NUMBER YOU WERE GIVEN, OR RETURN TO THE ED IMMEDIATELY. Scripts Ondansetron (ONDANSETRON ODT) 4 Mg Tab.rapdis 4 MG PO Q6HRS for Nausea/Vomiting, #20 TAB 0 Refills Prov: BUSTER LLOYD DO 12/17/20 Problem Qualifiers DENA WILKES MD Dec 17, 2020 05:41 BUSTER LLOYD DO Dec 17, 2020 06:51
[2020-12-17] MEDS ORDERED: CONTRAST GIVEN. MC PRN (05:45)
[2020-12-17 05:49] LABS: BASO # 0.1 x10^3/uL (0.0-0.2); BASO % 1 % (0-3); EOS # 0.1 x10^3/uL (0.0-0.7); EOS % 1 % (0-3); HEMATOCRIT 44.5 % (36.0-47.0); HEMOGLOBIN 14.5 g/dL (12.0-15.5); LYMPH # 2.6 x10^3/uL (1.0-4.8); LYMPH % 32 % (24-48); MEAN CORPUSCULAR HEMOGLOBIN 28 pg (25-35); MEAN CORPUSCULAR HGB CONC 33 g/dL (31-37); MEAN CORPUSCULAR VOLUME 84 fL (79-100); MONO # 0.4 x10^3/uL (0.0-1.1); MONO % 5 % (0-9); NEUT # 5.1 x10^3uL (1.8-7.7); NEUT % 61 % (31-73); PLATELET COUNT 289 x10^3/uL (140-400); RED BLOOD COUNT 5.28 x10^6/uL (3.50-5.40); RED CELL DISTRIBUTION WIDTH 14.2 % (11.5-14.5); WHITE BLOOD COUNT 8.2 x10^3/uL (4.0-11.0)
[2020-12-17 05:50] VITALS: BP 123/67
[2020-12-17 05:58] LABS: CREATININE 0.8 mg/dL (0.6-1.0); GFR 76.6; POTASSIUM 3.6 mmol/L (3.5-5.1)
[2020-12-17] MEDS ORDERED: IV RINGERS SOLUTION,LACTATED 1,000 ML IV ONE (06:00)
[2020-12-17] MEDS ORDERED: ONDANSETRON PF 4 MG/2 ML VIAL. IVP ONE (06:00)
[2020-12-17] MEDS ORDERED: IOHEXOL 300 MG/ML 75 ML VIAL. IV ONE (06:00)
[2020-12-17 06:04] LABS: ALBUMIN 3.6 g/dL (3.4-5.0); ALBUMIN/GLOBULIN RATIO 0.9 (1.0-1.7); TOTAL BILIRUBIN 0.7 mg/dL (0.2-1.0); TOTAL PROTEIN 7.7 g/dL (6.4-8.2)
--- NOTE | 2020-12-17 06:30 | RAD ---
PQRS Compliance Statement: One or more of the following individualized dose reduction techniques were utilized for this examinat ion: 1. Automated exposure control 2. Adjustment of the mA and/or kV according to patient size 3. Use of iterative reconstruction technique CT ABDOMEN+PELVIS W Clinical Indication: Reason: ab pain / umbilical region, N/V X 7 DAYS, Comparison: None. Technique: Helical CT imaging of the abdomen and pelvis is performed after 75 cc of Omnipaque 300 IV contrast. Oral contrast not administered. Findings: Cardiac size is normal. The lung bases are clear. There is infrarenal IVC filter. Cholecystectomy. Tiny hypodensity in segment 2 of the liver is too sm all to further characterize. Liver otherwise homogeneous. The spleen, pancreas, adrenal glands, and a bdominal aorta caliber are normal. Kidneys enhance symmetrically, no hydronephrosis. The stomach is unremarkable. The appendix is normal. There is no dilated small bowel. There is no col on wall thickening. No abdominal adenopathy or free fluid. The urinary bladder is normal. Anteverted uterus. There is tiny left ovarian follicle. Right ovary fo llicle measures 1 cm. There is no pelvic free fluid. Small Schmorl's node superior endplate of T10 vertebral body. IMPRESSION: No acute abdominal or pelvic abnormality. Electronically signed by: Nabeel Matthews MD (12/17/2020 6:27 AM) [facility]
[2020-12-17 06:49] LABS: BARBITURATES NEG (NEG); BENZODIAZEPINES NEG (NEG); CANNABINOIDS NEG (NEG); COCAINE NEG (NEG); METHADONE NEG (NEG); OPIATES NEG (NEG); PHENCYCLIDINE NEG (NEG)
[2020-12-17 06:58] LABS: BACTERIA,URINE FEW /HPF (0-FEW); BILIRUBIN,URINE NEG (NEG); CLARITY,URINE CLEAR; COLOR,URINE YELLOW; GLUCOSE,URINE NEG (NEG); NITRITE,URINE NEG (NEG); SQUAMOUS EPITHELIAL CELL,UR MANY /LPF; UROBILINOGEN,URINE 0.2 mg/dL (0.2 mg/dL)
[2020-12-17 07:04] LABS: AMPHETAMINE/METHAMPHETAMINE NEG (NEG)
[2020-12-17] MEDS ORDERED: ONDA4TAB12 PO (07:14)
== END 2020-12-17 07:27 | disposition home or self-care (01) ==
LOC: ER 05:15
DX: R11.2 Nausea with vomiting, unspecified (principal); R10.84 Generalized abdominal pain; R14.0 Abdominal distension (gaseous); F31.9 Bipolar disorder, unspecified; F17.210 Nicotine dependence, cigarettes, uncomplicated; Z90.49 Acquired absence of other specified parts of digestive tract; Z98.51 Tubal ligation status; Z88.0 Allergy status to penicillin; Z88.5 Allergy status to narcotic agent; Z88.2 Allergy status to sulfonamides; Z88.8 Allergy status to other drugs, medicaments and biological substances
CPT/HCPCS: 36415; 74177; 80053; 80307; 81001; 81025; 83690; 85025; 96361; 96374; 99285; J2405; J7120; Q9967

== ENCOUNTER 2021-01-19 15:05 | Emergency (ER) | payer SELFPAY ==
[~2021-01-19] VITALS: Ht 160 cm; Wt 93.5 kg
[~2021-01-19 15:05] MED LIST changes: +ONDA4TAB12 PO
[2021-01-19 15:35] VITALS: BP 119/53
== END 2021-01-19 15:55 | disposition left against medical advice (07) ==
LOC: ER 15:05
DX: F41.9 Anxiety disorder, unspecified (principal); Z53.21 Procedure and treatment not carried out due to patient leaving prior to being seen by health care provider

== ENCOUNTER → 2021-02-01 | Outpatient (CLI) | payer SELFPAY ==
[2021-01-19 15:35] VITALS: BP 119/53
--- NOTE | 2021-02-01 15:05 | RAD ---
XR FEMUR_RIGHT History: Right anterior femur lump. Comparison: CT abdomen pelvis 12/17/2020. Technique: 5 views of the right femur. Findings: There is no evidence for fracture. No raised periosteal reaction. Alignment is normal. No destructive osseous lesions are seen. Joint spaces are preserved. A round density projects medial to the lesser trochanter on a frog-leg lateral view, however this has been removed on subsequent frog-leg lateral view consistent with external artifact. No soft tissue masses identified. Impression: 1. No acute osseous abnormality of the right femur. No radiopaque soft tissue mass identified. Electronically signed by: Steven Doan MD (02/01/2021 3:03 PM) [facility]
== END ==
LOC: RAD 12:20
PROVIDERS: ATTEND Nurse Practitioner Family
DX: M89.9 Disorder of bone, unspecified (principal)
CPT/HCPCS: 73552

== ENCOUNTER 2021-02-05 09:54 | Emergency (ER) | payer SELFPAY ==
[~2021-02-05] VITALS: Ht 160 cm; Wt 93.5 kg
[2021-02-05] MEDS ORDERED: IV NORMAL SALINE 1,000ML 1,000 ML IV ONE (10:15)
--- NOTE | 2021-02-05 10:34 | PHYS DOC ---
Past History Past Medical History: Bipolar, Constipation, DVT, Other Additional Past Medical Histor: Factor Five ; pulm emboli Past Surgical History: Cholecystectomy, Tubal ligation, Other Additional Past Surgical Histo: filter Smoking: Cigarettes Alcohol Use: None Drug Use: Methamphetamine General Adult EDM: Chief Complaint: NEAR SYCOPE HPI: HPI: 50-year-old female presents via EMS with near syncope. The patient was started on Jardiance 5 days ago. She tells me that she feels "weird" for about an hour after taking it every day. This morning, about 30 minutes after she took it, she started to feel fatigued and like her vision was darkening. She was outside at the time and it seemed to get darker and darker. The patient thought she was going to pass out. Patient has some anxiety at baseline so this made her have a small panic attack. She decided to call EMS. On arrival, EMS found her blood pressure to be in the 90s over 60s. The patient does not take blood pressure medicine. She has been having an unusually heavy menstrual cycle. She normally only goes 3 to 4 days and this is day 4. She is bleeding through her pad underwear and pants. She denies any cramping or abdominal pain. Review of Systems: Review of Systems: Constitutional: Denies fever or chills Eyes: Denies change in visual acuity HENT: Denies nasal congestion or sore throat Respiratory: Denies cough or shortness of breath Cardiovascular: Denies chest pain or edema GI: Denies abdominal pain, nausea, vomiting, bloody stools or diarrhea : Vaginal bleeding Musculoskeletal: Denies back pain or joint pain Integument: Denies rash Neurologic: Near syncope. Denies headache, focal weakness or sensory changes Endocrine: Denies polyuria or polydipsia Lymphatic: Denies swollen glands Psychiatric: Denies depression or anxiety Current Medications: Current Meds: Current Medications Medications (Trade) Dose Ordered Sig/Chip Start Time Stop Time Status Last Admin Dose Admin Sodium Chloride 1,000 ml @ 1,000 mls/hr 1X ONCE 02/05/21 10:15 02/05/21 11:14 02/05/21 10:22 1,000 MLS/HR Allergies: Allergies: Allergies Coded Allergies Type Severity Reaction Last Updated Verified Penicillins Allergy Severe anaphylaxis 02/05/21 Yes morphine Allergy Severe anaphylaxis 02/05/21 Yes carbamazepine Allergy Intermediate 02/05/21 Yes sulfamethoxazole Allergy Intermediate 02/05/21 Yes trimethoprim Allergy Intermediate 02/05/21 Yes Physical Exam: PE: Constitutional: Well developed, well nourished, obese, no acute distress, non- toxic appearance. [] HENT: Normocephalic, atraumatic, bilateral external ears normal, oropharynx moist, no oral exudates, nose normal. [] Eyes: PERRLA, EOMI, conjunctiva normal, no discharge. [] Neck: Normal range of motion, no tenderness, supple, no stridor. [] Cardiovascular: Heart rate regular rhythm, no murmur [] Lungs & Thorax: Bilateral breath sounds clear to auscultation [] Abdomen: Bowel sounds normal, soft, no tenderness, no masses, no pulsatile masses. [] Skin: Warm, dry, no erythema, no rash. [] Back: No tenderness, no CVA tenderness. [] Extremities: No tenderness, no cyanosis, no clubbing, ROM intact, no edema. [] Neurologic: Alert and oriented X 3, normal motor function, normal sensory function, no focal deficits noted. [] Psychologic: Affect normal, judgement normal, mood anxious. [] Current Patient Data: Vital Signs: Vital Signs Date Time Temp Pulse Resp B/P (MAP) Pulse Ox O2 Delivery O2 Flow Rate FiO2 02/05/21 10:00 98.1 90 16 108/49 (68) 100 EKG: EKG: [] Radiology/Procedures: Radiology/Procedures: [] Heart Score: C/O Chest Pain: N/A Risk Factors: Risk Factors: DM, Current or recent (<one month) smoker, HTN, HLP, family history of CAD, obesity. Risk Scores: Score 0 - 3: 2.5% MACE over next 6 weeks - Discharge Home Score 4 - 6: 20.3% MACE over next 6 weeks - Admit for Clinical Observation Score 7 - 10: 72.7% MACE over next 6 weeks - Early Invasive Strategies Course & Med Decision Making: Course & Med Decision Making Pertinent Labs and Imaging studies reviewed. (See chart for details) The patient's labs are unremarkable. She is feeling better at this time. I did give her a liter normal saline. Her blood pressure has improved. I have advised that she follow-up with her primary care physician to discuss side effects of this medication. She may need to try different medication. Also advised that she mention her prolonged vaginal bleeding to discuss potential management of this problem also. Patient states verbal understanding. She will call her primary care physician today. She is stable for discharge at this time. [] Caleb Disclaimer: Caleb Disclaimer: This electronic medical record was generated, in whole or in part, using a voice recognition dictation system. Departure Departure: Impression: Primary Impression: Near syncope Additional Impressions: Medication reaction Qualified Codes: T50.905A - Adverse effect of unspecified drugs, medicaments and biological substances, initial encounter Menorrhagia Disposition: HOME / SELF CARE / HOMELESS Condition: STABLE Referrals: SILVANA OLIVEIRA (PCP) Patient Instructions: Near-Syncope, [id number] MARQUITA CATHERINE DO February 05, 2021 10:34
[2021-02-05 10:40] LABS: BASO # 0.1 x10^3/uL (0.0-0.2); BASO % 1 % (0-3); EOS % 1 % (0-3); HEMATOCRIT 44.4 % (36.0-47.0); HEMOGLOBIN 14.7 g/dL (12.0-15.5); LYMPH # 1.6 x10^3/uL (1.0-4.8); LYMPH % 32 % (24-48); MEAN CORPUSCULAR HEMOGLOBIN 28 pg (25-35); MEAN CORPUSCULAR HGB CONC 33 g/dL (31-37); MEAN CORPUSCULAR VOLUME 84 fL (79-100); MONO # 0.2 x10^3/uL (0.0-1.1); MONO % 4 % (0-9); NEUT # 3.2 x10^3uL (1.8-7.7); NEUT % 62 % (31-73); PLATELET COUNT 251 x10^3/uL (140-400); RED BLOOD COUNT 5.26 x10^6/uL (3.50-5.40); RED CELL DISTRIBUTION WIDTH 15.1 % (11.5-14.5); WHITE BLOOD COUNT 5.1 x10^3/uL (4.0-11.0)
[2021-02-05 10:47] LABS: U PREG PATIENT NEGATIVE (NEG)
[2021-02-05 10:51] LABS: CREATININE 0.8 mg/dL (0.6-1.0); GFR 76.6; POTASSIUM 3.9 mmol/L (3.5-5.1)
[2021-02-05 10:57] LABS: ALBUMIN 3.8 g/dL (3.4-5.0); TOTAL BILIRUBIN 0.6 mg/dL (0.2-1.0); TOTAL PROTEIN 7.8 g/dL (6.4-8.2)
[2021-02-05 10:58] LABS: CLARITY,URINE CLEAR; COLOR,URINE YELLOW
[2021-02-05 10:59] LABS: BILIRUBIN,URINE NEG (NEG); GLUCOSE,URINE >=1000 mg/dL (NEG); NITRITE,URINE NEG (NEG); UROBILINOGEN,URINE 0.2 mg/dL (0.2 mg/dL)
[2021-02-05 11:01] LABS: RBC,URINE >40 /HPF (0-2); WBC,URINE RARE /HPF (0-4)
[2021-02-05 11:02] LABS: BACTERIA,URINE 0 /HPF (0-FEW); SQUAMOUS EPITHELIAL CELL,UR OCC /LPF
[2021-02-05 11:45] VITALS: BP 112/62
== END 2021-02-05 12:00 | disposition home or self-care (01) ==
LOC: ER 09:54
DX: R55 Syncope and collapse (principal); T50.995A Adverse effect of other drugs, medicaments and biological substances, initial encounter; N92.0 Excessive and frequent menstruation with regular cycle; F31.9 Bipolar disorder, unspecified; F17.210 Nicotine dependence, cigarettes, uncomplicated; Z86.718 Personal history of other venous thrombosis and embolism; Z88.0 Allergy status to penicillin; Z88.5 Allergy status to narcotic agent; Z88.2 Allergy status to sulfonamides; Z88.8 Allergy status to other drugs, medicaments and biological substances; Y92.89 Other specified places as the place of occurrence of the external cause
CPT/HCPCS: 36415; 80053; 81001; 81025; 85025; 96360; 99285; J7030

== ENCOUNTER 2021-02-12 10:12 | Emergency (ER) | payer SELFPAY ==
[~2021-02-12] VITALS: Ht 160 cm; Wt 91.4 kg
--- NOTE | 2021-02-12 10:46 | PHYS DOC ---
Past History Past Medical History: Bipolar, Constipation, Diabetes, DVT, Other Additional Past Medical Histor: Factor Five ; pulm emboli Past Surgical History: Cholecystectomy, Tubal ligation, Other Additional Past Surgical Histo: filter Smoking: Cigarettes Additional Smoking Information: REPORTS QUITTING 1 WEEK AGO Alcohol Use: None Drug Use: Methamphetamine General Adult EDM: Chief Complaint: UPPER EXTREMITY PAIN HPI: HPI: 50-year-old female presents with right arm pain. The patient was recently seen in this ER and had an IV in her right arm. She states that she is having "rubber band popping" type sensation in her right lower arm. She has had similar sensations to this when she had DVTs in her leg in the past. 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 She denies shortness of breath. Denies fever chills. Review of Systems: Review of Systems: Constitutional: Denies fever or chills Eyes: Denies change in visual acuity HENT: Denies nasal congestion or sore throat Respiratory: Denies cough or shortness of breath Cardiovascular: Denies chest pain or edema GI: Denies abdominal pain, nausea, vomiting, bloody stools or diarrhea : Denies dysuria Musculoskeletal: Right forearm pain Integument: Denies rash Neurologic: Denies headache, focal weakness or sensory changes Endocrine: Denies polyuria or polydipsia Lymphatic: Denies swollen glands Psychiatric: Denies depression or anxiety Allergies: Allergies: Allergies Coded Allergies Type Severity Reaction Last Updated Verified Penicillins Allergy Severe anaphylaxis 02/05/21 Yes morphine Allergy Severe anaphylaxis 02/05/21 Yes carbamazepine Allergy Intermediate 02/05/21 Yes sulfamethoxazole Allergy Intermediate 02/05/21 Yes trimethoprim Allergy Intermediate 02/05/21 Yes Physical Exam: PE: Constitutional: Well developed, well nourished, no acute distress, non-toxic appearance. [] HENT: Normocephalic, atraumatic, bilateral external ears normal, oropharynx moist, no oral exudates, nose normal. [] Eyes: PERRLA, EOMI, conjunctiva normal, no discharge. [] Neck: Normal range of motion, no tenderness, supple, no stridor. [] Cardiovascular:Heart rate regular rhythm, no murmur [] Lungs & Thorax: Bilateral breath sounds clear to auscultation [] Abdomen: Bowel sounds normal, soft, no tenderness, no masses, no pulsatile masses. [] Skin: Warm, dry, no erythema, no rash. [] Back: No tenderness, no CVA tenderness. [] Extremities: No tenderness, no cyanosis, no clubbing, ROM intact, no edema. [] Neurologic: Alert and oriented X 3, normal motor function, normal sensory function, no focal deficits noted. [] Psychologic: Affect normal, judgement normal, mood normal. [] Current Patient Data: Vital Signs: Vital Signs Date Time Temp Pulse Resp B/P (MAP) Pulse Ox O2 Delivery O2 Flow Rate FiO2 02/12/21 10:20 98.0 79 20 131/80 (97) 98 Room Air EKG: EKG: [] Radiology/Procedures: Radiology/Procedures: [] Impressions: EXAM: Right upper extremity venous Doppler sonogram. HISTORY: DVT. TECHNIQUE: Araiza scale and color Doppler sonographic evaluation of the right upper extremity veins with spectral waveform analysis was performed. FINDINGS: There is normal color flow, normal compressibility and there are normal spectral waveforms in the upper extremity veins. IMPRESSION: No Doppler evidence of upper extremity venous thrombosis. Electronically signed by: Afshan Varela MD (02/12/2021 11:22 AM) [id number] DICTATED AND SIGNED BY: AFSHAN VARELA MD DATE: 02/12/21 1122 CC: WILLIAM OLIVEIRA RYAN DO ~MTH0 0 Heart Score: C/O Chest Pain: N/A Risk Factors: Risk Factors: DM, Current or recent (<one month) smoker, HTN, HLP, family history of CAD, obesity. Risk Scores: Score 0 - 3: 2.5% MACE over next 6 weeks - Discharge Home Score 4 - 6: 20.3% MACE over next 6 weeks - Admit for Clinical Observation Score 7 - 10: 72.7% MACE over next 6 weeks - Early Invasive Strategies Course & Med Decision Making: Course & Med Decision Making Pertinent Labs and Imaging studies reviewed. (See chart for details) The patient's ultrasound is negative for thrombus. I believe she likely has some nerve irritation from the IV. This should resolve on its own without further intervention. She is stable for discharge at this time. [] Dragon Disclaimer: Dragon Disclaimer: This electronic medical record was generated, in whole or in part, using a voice recognition dictation system. Departure Departure: Impression: Primary Impression: Neuropathic pain of right forearm Disposition: HOME / SELF CARE / HOMELESS Condition: STABLE Referrals: SILVANA OLIVEIRA (PCP) Patient Instructions: Pain, Neuropathic-Brief MARQUITA CATHERINE DO February 12, 2021 10:46
--- NOTE | 2021-02-12 11:25 | RAD ---
EXAM: Right upper extremity venous Doppler sonogram. HISTORY: DVT. TECHNIQUE: Araiza scale and color Doppler sonographic evaluation of the right upper extremity veins wit h spectral waveform analysis was performed. FINDINGS: There is normal color flow, normal compressibility and there are normal spectral waveforms in the upper extremity veins. IMPRESSION: No Doppler evidence of upper extremity venous thrombosis. Electronically signed by: Afshan Guy MD (02/12/2021 11:22 AM) [id number]
[2021-02-12 11:34] VITALS: BP 139/50
== END 2021-02-12 11:35 | disposition home or self-care (01) ==
LOC: ER 10:12
DX: M79.601 Pain in right arm (principal); F31.9 Bipolar disorder, unspecified; E11.9 Type 2 diabetes mellitus without complications; Z86.718 Personal history of other venous thrombosis and embolism; F17.210 Nicotine dependence, cigarettes, uncomplicated; Z88.0 Allergy status to penicillin; Z88.5 Allergy status to narcotic agent; Z88.2 Allergy status to sulfonamides; Z88.1 Allergy status to other antibiotic agents; Z88.8 Allergy status to other drugs, medicaments and biological substances
CPT/HCPCS: 93971; 99284

== ENCOUNTER 2021-03-15 08:54 | Emergency (ER) | payer SELFPAY ==
[~2021-03-15] VITALS: Ht 160 cm; Wt 91.4 kg
--- NOTE | 2021-03-15 09:41 | PHYS DOC ---
Past History Past Medical History: Bipolar, Constipation, Diabetes, DVT, Other Additional Past Medical Histor: Factor Five ; pulm emboli Past Surgical History: Cholecystectomy, Tubal ligation, Other Additional Past Surgical Histo: filter Smoking: Cigarettes Alcohol Use: None Drug Use: Methamphetamine Adult General Chief Complaint Chief Complaint: DIARRHEA HPI HPI Patient is a 50-year-old female presenting for diarrhea. Reports this is an acute problem. States she had been constipated for prior week, 2 days ago she inserted an enema and reports having watery diarrhea shortly afterwards. She has had no bowel movement since then. Reports this morning, she had large blowout bowel movement that was a mixture of watery stool and solid stool. She had 3 subsequent large evacuations of feces. Reports she has felt fatigued after these episodes and was dizzy after changing position from seated to s tanding position, is concerned as she has history of symptomatic orthostatic hypotension. She tried to contact her primary care physician to be seen this morning but they were not open and so, she presented to our ER for evaluation. On arrival, patient had x1 bowel movement and is otherwise asymptomatic denies fever, sick contacts, recent travel/camping, no half-way/hospital exposure, no recent antibiotic use, no concerning p.o. ingestions, no known blood loss, abdominal pain or urinary symptoms. She has never had a colonoscopy, no family history of colon cancer Review of Systems Review of Systems Fourteen body systems of review of systems have been reviewed. See HPI for pertinent positives and negative responses, other dooley all other systems are negative, non-pertinent or non-contributory Allergies Allergies Allergies Coded Allergies Type Severity Reaction Last Updated Verified Penicillins Allergy Severe anaphylaxis 02/05/21 Yes morphine Allergy Severe anaphylaxis 02/05/21 Yes carbamazepine Allergy Intermediate 02/05/21 Yes sulfamethoxazole Allergy Intermediate 02/05/21 Yes trimethoprim Allergy Intermediate 02/05/21 Yes Physical Exam Physical Exam Constitutional: Well developed, well nourished, no acute distress, non-toxic appearance. HENT: Normocephalic, atraumatic, bilateral external ears normal, oropharynx dry, no oral exudates, nose normal. Eyes: PERRLA, EOMI, conjunctiva normal, no discharge. Neck: Normal range of motion, no tenderness, supple, no stridor. Cardiovascular: Heart rate regular, sinus rhythm, no murmurs rubs or gallops Lungs & Thorax: Bilateral breath sounds clear to auscultation Abdomen: Bowel sounds normal, soft, no tenderness, no masses, no pulsatile masses. Nonsurgical abdomen, no peritoneal signs Skin: Warm, dry, no erythema, no rash. Back: No tenderness, no CVA tenderness. Extremities: No tenderness, no cyanosis, no clubbing, ROM intact, no edema. Neurologic: Alert and oriented X 3, cranial nerves II through XII intact, normal motor & sensory function, no focal deficits noted. Gait unremarkable Psychologic: Affect normal, judgement normal, mood normal. Current Patient Data Vital Signs Vital Signs Date Time Temp Pulse Resp B/P (MAP) Pulse Ox O2 Delivery O2 Flow Rate FiO2 03/15/21 09:12 98.4 65 16 132/75 (94) 99 Room Air Lab Results Laboratory Tests Test 03/15/21 10:03 White Blood Count 4.6 x10^3/uL Red Blood Count 4.98 x10^6/uL Hemoglobin 13.8 g/dL Hematocrit 41.8 % Mean Corpuscular Volume 84 fL Mean Corpuscular Hemoglobin 28 pg Mean Corpuscular Hemoglobin Concent 33 g/dL Red Cell Distribution Width 15.0 % Platelet Count 250 x10^3/uL Neutrophils (%) (Auto) 60 % Lymphocytes (%) (Auto) 32 % Monocytes (%) (Auto) 6 % Eosinophils (%) (Auto) 1 % Basophils (%) (Auto) 1 % Neutrophils # (Auto) 2.8 x10^3uL Lymphocytes # (Auto) 1.5 x10^3/uL Monocytes # (Auto) 0.3 x10^3/uL Eosinophils # (Auto) 0.0 x10^3/uL Basophils # (Auto) 0.1 x10^3/uL Sodium Level 140 mmol/L Potassium Level 4.0 mmol/L Chloride Level 104 mmol/L Carbon Dioxide Level 29 mmol/L Anion Gap 7 Blood Urea Nitrogen 8 mg/dL Creatinine 0.8 mg/dL Estimated GFR (Cockcroft-Gault) 76.6 BUN/Creatinine Ratio 10 Glucose Level 94 mg/dL Calcium Level 8.5 mg/dL Total Bilirubin 0.6 mg/dL Aspartate Amino Transf (AST/SGOT) 16 U/L Alanine Aminotransferase (ALT/SGPT) 21 U/L Alkaline Phosphatase 86 U/L Troponin I Quantitative < 0.017 ng/mL Total Protein 6.9 g/dL Albumin 3.7 g/dL Albumin/Globulin Ratio 1.2 Current Medications Medications (Trade) Dose Ordered Sig/Chip Route PRN Reason Start Time Stop Time Status Last Admin Dose Admin Sodium Chloride 1,000 ml @ 1,000 mls/hr 1X ONCE IV 03/15/21 09:45 03/15/21 10:44 DC 03/15/21 10:06 EKG EKG EKG ordered and interpreted by myself at 0952 hrs. as sinus rhythm at 66 bpm, unremarkable intervals, no axis deviation, T wave inversion noted in lead III, no STEMI Radiology/Procedures Radiology/Procedures [] Heart Score C/O Chest Pain: No HEART Score for Chest Pain: HEART Score for Chest Pain Response (Comments) Value History Slighlty/Non-Suspicious 0 ECG Nonspecific Repolarizatio 1 Age >45 - < 65 1 Risk Factors 1 or 2 Risk Factors 1 Troponin < Normal Limit 0 Total 3 Risk Factors: Risk Factors: DM, Current or recent (<one month) smoker, HTN, HLP, family history of CAD, obesity. Risk Scores: Risk Factors: DM, Current or recent (<one month) smoker, HTN, HLP, family history of CAD, obesity. Course & Med Decision Making Course & Med Decision Making Discussed with the patient all findings and diagnostic testing. I discussed most likely diagnosis of diarrhea likely due to self-limiting illness such as viral gastroenteritis versus recent constipation status post enema use. Patient tolerated IV fluid rehydration while in ER, patient reports feeling better without any symptoms during position changes. 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 Nonetheless, I stressed need for close outpatient follow-up to review today's ER visit. Strict return precautions were also discussed at length with good understanding by patient. Patient voiced understanding and agreement with the plan. Patient knows to come back for repeat evaluation if concerning signs or symptoms present prior to outpatient follow-up. Hemodynamically stable, ambulatory and well-appearing at time of disposition. Dragon Disclaimer Dragon Disclaimer This electronic medical record was generated, in whole or in part, using a voice recognition dictation system. Departure Departure: Impression: Primary Impression: Diarrhea Additional Impression: Dehydration Disposition: HOME / SELF CARE / HOMELESS Condition: IMPROVED Referrals: SILVANA OLIVEIRA (PCP) Patient Instructions: Diarrhea, [id number] Additional Instructions: You were seen in the ED for evaluation of diarrhea. While the cause of the diarrhea is not known, it is most likely viral in nature, which does not respond to antibiotics and typically will resolve with time. It could also be due to the fact that you recently used an enema in the setting of recent constipation. Regardless, it will be important to monitor your fluid intake to avoid dehydration and other symptoms closely as if your symptoms to not improve in the next few days, you will likely need further testing and more aggressive management. Please return to the ED if you have new or worrisome symptoms. Problem Qualifiers JAM EL DO Mar 15, 2021 09:41
[2021-03-15] MEDS ORDERED: IV NORMAL SALINE 1,000ML 1,000 ML IV ONE (09:45)
[2021-03-15 10:24] LABS: BASO # 0.1 x10^3/uL (0.0-0.2); BASO % 1 % (0-3); EOS % 1 % (0-3); HEMATOCRIT 41.8 % (36.0-47.0); HEMOGLOBIN 13.8 g/dL (12.0-15.5); LYMPH # 1.5 x10^3/uL (1.0-4.8); LYMPH % 32 % (24-48); MEAN CORPUSCULAR HEMOGLOBIN 28 pg (25-35); MEAN CORPUSCULAR HGB CONC 33 g/dL (31-37); MEAN CORPUSCULAR VOLUME 84 fL (79-100); MONO # 0.3 x10^3/uL (0.0-1.1); MONO % 6 % (0-9); NEUT # 2.8 x10^3uL (1.8-7.7); NEUT % 60 % (31-73); PLATELET COUNT 250 x10^3/uL (140-400); RED BLOOD COUNT 4.98 x10^6/uL (3.50-5.40); WHITE BLOOD COUNT 4.6 x10^3/uL (4.0-11.0)
[2021-03-15 10:31] LABS: ALBUMIN 3.7 g/dL (3.4-5.0); ALBUMIN/GLOBULIN RATIO 1.2 (1.0-1.7); CALCIUM 8.5 mg/dL (8.5-10.1); CREATININE 0.8 mg/dL (0.6-1.0); GFR 76.6; TOTAL BILIRUBIN 0.6 mg/dL (0.2-1.0); TOTAL PROTEIN 6.9 g/dL (6.4-8.2)
[2021-03-15 11:35] VITALS: BP 133/70
--- NOTE | 2021-03-15 23:30 | EKG ---
[address] [id number] Test Date: 2021-03-15 Test Time: 09:44:35 Pat Name: CHRIS SWASNON Department: Room: Gender: F Outreach Liaison: TONY : 1970 Requested By: JAM EL Order Number: [id number] Reading MD: Measurements Intervals [place] Rate: 66 P: 49 MN: 174 QRS: 27 QRSD: 92 T: 8 QT: 406 QTc: 427 Interpretive Statements SINUS RHYTHM NORMAL ECG RI6.02 Compared to ECG 03/15/2021 09:43:25 T-wave abnormality no longer present Possible ischemia no longer present
== END 2021-03-15 11:47 | disposition home or self-care (01) ==
LOC: ER 08:54
DX: R19.7 Diarrhea, unspecified (principal); E86.0 Dehydration; F17.210 Nicotine dependence, cigarettes, uncomplicated; F15.10 Other stimulant abuse, uncomplicated; Z88.0 Allergy status to penicillin; Z88.2 Allergy status to sulfonamides; Z88.5 Allergy status to narcotic agent; Z90.49 Acquired absence of other specified parts of digestive tract; Z98.51 Tubal ligation status
CPT/HCPCS: 36415; 80053; 84484; 85025; 93005; 96360; 99284; J7030

== ENCOUNTER 2021-05-28 15:27 | Emergency (ER) | payer SELFPAY ==
[~2021-05-28] VITALS: Ht 160 cm; Wt 93.3 kg
[2021-05-28] MEDS ORDERED: IV NORMAL SALINE 1,000ML 1,000 ML IV ONE (15:45)
--- NOTE | 2021-05-28 15:50 | PHYS DOC ---
Past History Past Medical History: Bipolar, Constipation, Diabetes, DVT, Other Additional Past Medical Histor: Factor Five ; pulm emboli; anaphospholiptic syndrome Past Surgical History: Cholecystectomy, Tubal ligation, Other Additional Past Surgical Histo: miko filter Smoking: Cigarettes Alcohol Use: None Drug Use: Methamphetamine General Adult EDM: Chief Complaint: DIZZY/LIGHT HEADED HPI: HPI: Patient is a 42-year-old female who presents to the ER with "lightheadedness and shakiness". Patient is also reporting mild nausea. She states that the symptoms started this afternoon when she was laying down. She denies any alleviating or aggravating factors. She states that she feels like her heart is racing. Patient denies dizziness worse with position changes, syncope, vomiting, chest pain, shortness of breath, headaches, fevers. Patient has a history of bipolar disorder with anxiety, DVT/PE, factor V, prediabetes. Patient states that she does not check her blood sugars at home and does not take any medications for diabetes. She states that her last A1c was good and did not require any medication. Patient's vital signs are stable, she is in no acute distress. Review of Systems: Review of Systems: 14 body systems of the review of systems have been reviewed. See HPI for pertinent positive and negative responses, otherwise all other systems are negative, nonpertinent or noncontributory Allergies: Allergies: Allergies Coded Allergies Type Severity Reaction Last Updated Verified Penicillins Allergy Severe anaphylaxis 05/28/21 Yes morphine Allergy Severe anaphylaxis 05/28/21 Yes carbamazepine Allergy Intermediate 05/28/21 Yes sulfamethoxazole Allergy Intermediate 05/28/21 Yes trimethoprim Allergy Intermediate 05/28/21 Yes Physical Exam: PE: Constitutional: Well developed, well nourished, no acute distress, non-toxic appearance. [] HENT: Normocephalic, atraumatic, bilateral external ears normal, oropharynx moist, no oral exudates, nose normal. [] Eyes: PERRLA, 4 mm pupils bilaterally, EOMI, conjunctiva normal, no discharge. [] Neck: Normal range of motion, no stridor Cardiovascular:Heart rate regular rhythm, no murmur [] Lungs & Thorax: Bilateral breath sounds clear to auscultation [] Abdomen: Bowel sounds normal, soft, no tenderness, no masses, no pulsatile masses. [] Skin: Warm, dry, no erythema, no rash. [] Back: Normal range of motion Extremities: No tenderness, no cyanosis, no clubbing, ROM intact, no edema. [] Neurologic: Alert and oriented X 3, normal motor function, normal sensory function, no focal deficits noted. Negative pronator drift, no ataxia, normal speech, patient is moving all 4 extremities equally, equal strength bilaterally upper and lower extremities [] Psychologic: Affect normal, judgement normal, mood normal. [] Current Patient Data: Labs: Laboratory Tests Test 05/28/21 16:00 05/28/21 16:03 Glucose (Fingerstick) 97 mg/dL White Blood Count 8.4 x10^3/uL Red Blood Count 4.81 x10^6/uL Hemoglobin 13.8 g/dL Hematocrit 41.8 % Mean Corpuscular Volume 87 fL Mean Corpuscular Hemoglobin 29 pg Mean Corpuscular Hemoglobin Concent 33 g/dL Red Cell Distribution Width 13.9 % Platelet Count 269 x10^3/uL Neutrophils (%) (Auto) 66 % Lymphocytes (%) (Auto) 28 % Monocytes (%) (Auto) 5 % Eosinophils (%) (Auto) 1 % Basophils (%) (Auto) 1 % Neutrophils # (Auto) 5.6 x10^3uL Lymphocytes # (Auto) 2.4 x10^3/uL Monocytes # (Auto) 0.4 x10^3/uL Eosinophils # (Auto) 0.1 x10^3/uL Basophils # (Auto) 0.1 x10^3/uL Sodium Level 136 mmol/L Potassium Level 3.2 mmol/L Chloride Level 101 mmol/L Carbon Dioxide Level 23 mmol/L Anion Gap 12 Blood Urea Nitrogen 12 mg/dL Creatinine 0.7 mg/dL Estimated GFR (Cockcroft-Gault) 89.3 BUN/Creatinine Ratio 17 Glucose Level 102 mg/dL Calcium Level 8.6 mg/dL Total Bilirubin 0.6 mg/dL Aspartate Amino Transf (AST/SGOT) 14 U/L Alanine Aminotransferase (ALT/SGPT) 16 U/L Alkaline Phosphatase 82 U/L Troponin I Quantitative < 0.017 ng/mL Total Protein 7.2 g/dL Albumin 3.5 g/dL Albumin/Globulin Ratio 0.9 Current Medications Medications (Trade) Dose Ordered Sig/Chip Route PRN Reason Start Time Stop Time Status Last Admin Dose Admin Sodium Chloride 1,000 ml @ 1,000 mls/hr 1X ONCE IV 05/28/21 15:45 05/28/21 16:44 DC 05/28/21 16:27 Potassium Chloride (Klor-Con) 40 meq 1X ONCE PO 05/28/21 17:30 05/28/21 17:31 Vital Signs: Vital Signs Date Time Temp Pulse Resp B/P (MAP) Pulse Ox O2 Delivery O2 Flow Rate FiO2 05/28/21 15:39 79 24 120/72 100 Room Air EKG: EKG: EKG performed by ER staff at 1536 shows sinus rhythm, no STEMI read by Dr. Vazquez at 1541. [] Radiology/Procedures: Radiology/Procedures: PROCEDURE: CT HEAD WO CONTRAST CT HEAD/BRAIN WO Date: 05/28/2021 3:47 PM Clinical Indication: Reason: dizziness / Spl. Instructions: / History: Comparison: None. Technique: 5 mm axial tomographic images were obtained of the head without contrast. These were viewed on brain and bone windows. One or more of the following dose reduction techniques were utilized: Automated exposure control (AEC), Adjustment of mA and/or kV according to patient size, Use of iterative reconstruction technique such as ASiR, CT scan done according to ALARA and image gently/image wisely Findings: The brain parenchyma is normal in attenuation. No intra- or extra-axial mass or fluid collection. No acute hemorrhage. The ventricles are normal in size, shape, and morphology. The ramirez-white matter junction is normal. The subarachnoid cisterns are patent. The visualized paranasal sinuses are normal. The visualized portions of the orbits and globes are normal. The mastoid air cells are clear. The dispatcher motor vehicle topogram shows no lytic lesion or fracture. Impression: No acute intracranial process. Electronically signed by: Kim Wren MD (05/28/2021 4:11 PM) [facility] DICTATED AND SIGNED BY: KIM WREN MD DATE: 05/28/21 1611 CC: SILVANA OLIVEIRA; REG DELGADILLO DRAPERY HAND ~MTH0 0[] Heart Score: C/O Chest Pain: No Risk Factors: Risk Factors: DM, Current or recent (<one month) smoker, HTN, HLP, family history of CAD, obesity. Risk Scores: Score 0 - 3: 2.5% MACE over next 6 weeks - Discharge Home Score 4 - 6: 20.3% MACE over next 6 weeks - Admit for Clinical Observation Score 7 - 10: 72.7% MACE over next 6 weeks - Early Invasive Strategies Course & Med Decision Making: Course & Med Decision Making Pertinent Labs and Imaging studies reviewed. (See chart for details) [] Patient is a 50-year-old female being seen in the ER for feeling "lightheaded and shaky". Patient reports that symptoms started when she was laying down. Work-up in the ER consisted of blood work, urinalysis, EKG, CT scan of head. Patient was treated with IV fluids. Patient's vital signs are stable and she is not tachycardic. Blood sugar was 97. Patient was negative for orthostatic hypotension. CT scan of head unremarkable. Patient's blood work was unremarkable, she was noted to have a potassium of 3.2, this was replaced in the ER and patient foods to eat at home that is rich in potassium. UA shows mod bacteria but moderate squamous cells, most likely contamination. Upon reassessment following fluids, patient reports that she is no longer feeling lightheaded and feels much better. Patient advised to increase her fluids at home and follow-up with her primary care provider. I discussed with patient all findings and diagnostic testing as well as the need to follow-up with PCP for further evaluation and treatment or return to the ER if any new or worsening symptoms. Strict return precautions were also discussed at length. Patient voiced understanding and agreement with the plan. Patient is hemodynamically stable at the time of disposition. Caleb Disclaimer: Caleb Disclaimer: This electronic medical record was generated, in whole or in part, using a voice recognition dictation system. Departure Departure: Impression: Primary Impression: Lightheaded Disposition: HOME / SELF CARE / HOMELESS Condition: GOOD Referrals: SILVANA OLIVEIRA (PCP) Patient Instructions: Dizziness, Hypokalemia Additional Instructions: You were seen in the ER today for feeling shaky and lightheaded. Your physical exam was reassuring. Your work-up in the ER was unremarkable however you were noted to have a low potassium level, this was replaced in the ER. Please ensure that you are eating foods that are rich in potassium at home. Increase your fluid intake at home. Follow-up with your primary care provider tomorrow regarding your ER visit. If you develop worsening of your lightheadedness, syncope, intractable nausea or vomiting, chest pain, shortness of breath, vision changes, headache or any new or worsening concerns please return to the ER. EMERGENCY DEPARTMENT GENERAL DISCHARGE INSTRUCTIONS Thank you for coming to [facility] (ED) today and trusting us with you care. We trust that you had a positivie experience in our Emergency Department. If you wish to speak to the department management, you may call the director at [phone]. YOUR FOLLOW UP INSTRUCTIONS ARE FOLLOWS: 1. Do you have a private Doctor? If you do not have a private doctor, please ask for a resource list of physicians or clinics that may be able to assist you with follow up care. 2. The Emergency Physician has interpreted your x-rays. The X-Ray specialist will also review them. If there is a change in the findings, you will be notified in 48 hours when at all possible. 3. A lab test or culture has been done, your results will be reviewed and you will be notified if you need a change in treatment. ADDITIONAL INSTRUCTIONS AND INFORMATION: 1. Your care today has been supervised by a physician who is specially trained in emergency care. Many problems require more than one evaluation for a complete diagnosis and treatment. We recommend that you schedule your follow up appointment as recommended to ensure complete treatment of you illness or injury. If you are unable to obtain follow up care and continue to have a problem, or if your condition worsens, we recommend that you return to the ED. 2. We are not able to safely determine your condition over the phone nor are we able to give sound medical advice over the phone. For these safety reasons, if you call for medical advice we will ask you to come to the ED for further evaluation. 3. If you have any questions regarding these discharge instructions please call the ED at [phone]. SAFETY INFORMATION: In the interest of safety, wellness, and injury prevention; we encourage you to wear your sealbelt, if you smoke; quite smoking, and we encourage family to use a protective helmet for bicycling and other sporting events that present an increased risk for head injury. IF YOUR SYMPTOMS WORSEN OR NEW SYMPTOMS DEVELOP, OR YOU HAVE CONCERNS ABOUT YOUR CONDITION; OR IF YOUR CONDITION WORSENS WHILE YOU ARE WAITING FOR YOUR FOLLOW UP APPOINTMENT; EITHER CONTACT YOUR PRIMARY CARE DOCTOR, THE PHYSICIAN WHOSE NAME AND NUMBER YOU WERE GIVEN, OR RETURN TO THE ED IMMEDIATELY. REG DELGADILLO APRN May 28, 2021 15:50
--- NOTE | 2021-05-28 16:06 | EKG ---
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
--- NOTE | 2021-05-28 16:14 | RAD ---
CT HEAD/BRAIN WO Date: 05/28/2021 3:47 PM Clinical Indication: Reason: dizziness / Spl. Instructions: / History: Comparison: None. Technique: 5 mm axial tomographic images were obtained of the head without contrast. These were view ed on brain and bone windows. One or more of the following dose reduction techniques were utilized: A utomated exposure control (AEC), Adjustment of mA and/or kV according to patient size, Use of iterati ve reconstruction technique such as ASiR, CT scan done according to ALARA and image gently/image dooley ly Findings: The brain parenchyma is normal in attenuation. No intra- or extra-axial mass or fluid collection. No acute hemorrhage. The ventricles are normal in size, shape, and morphology. The ramirez-white matter ru ction is normal. The subarachnoid cisterns are patent. The visualized paranasal sinuses are normal. The visualized portions of the orbits and globes are no rmal. The mastoid air cells are clear. The byproducts supervisor topogram shows no lytic lesion or fracture. Impression: No acute intracranial process. Electronically signed by: Jake Powers MD (05/28/2021 4:11 PM) [facility]
[2021-05-28 16:51] LABS: CALCIUM 8.6 mg/dL (8.5-10.1); CREATININE 0.7 mg/dL (0.6-1.0); GFR 89.3; POTASSIUM 3.2 mmol/L (3.5-5.1)
[2021-05-28 16:54] LABS: BASO # 0.1 x10^3/uL (0.0-0.2); BASO % 1 % (0-3); EOS # 0.1 x10^3/uL (0.0-0.7); EOS % 1 % (0-3); HEMATOCRIT 41.8 % (36.0-47.0); HEMOGLOBIN 13.8 g/dL (12.0-15.5); LYMPH # 2.4 x10^3/uL (1.0-4.8); LYMPH % 28 % (24-48); MEAN CORPUSCULAR HEMOGLOBIN 29 pg (25-35); MEAN CORPUSCULAR HGB CONC 33 g/dL (31-37); MEAN CORPUSCULAR VOLUME 87 fL (79-100); MONO # 0.4 x10^3/uL (0.0-1.1); MONO % 5 % (0-9); NEUT # 5.6 x10^3uL (1.8-7.7); NEUT % 66 % (31-73); PLATELET COUNT 269 x10^3/uL (140-400); RED BLOOD COUNT 4.81 x10^6/uL (3.50-5.40); RED CELL DISTRIBUTION WIDTH 13.9 % (11.5-14.5); WHITE BLOOD COUNT 8.4 x10^3/uL (4.0-11.0)
[2021-05-28 17:04] LABS: ALBUMIN 3.5 g/dL (3.4-5.0); ALBUMIN/GLOBULIN RATIO 0.9 (1.0-1.7); TOTAL BILIRUBIN 0.6 mg/dL (0.2-1.0); TOTAL PROTEIN 7.2 g/dL (6.4-8.2)
[2021-05-28] MEDS ORDERED: POTASSIUM CHLORIDE 20 MEQ TABLET.ER. PO ONE (17:30)
[2021-05-28 17:47] LABS: BILIRUBIN,URINE NEG (NEG); CLARITY,URINE CLEAR; COLOR,URINE YELLOW; GLUCOSE,URINE NEG (NEG); NITRITE,URINE NEG (NEG); UROBILINOGEN,URINE 0.2 mg/dL (0.2 mg/dL)
[2021-05-28 17:48] LABS: BACTERIA,URINE MOD /HPF (0-FEW); RBC,URINE OCC /HPF (0-2); SQUAMOUS EPITHELIAL CELL,UR MOD /LPF; WBC,URINE OCC /HPF (0-4)
[2021-05-28 18:05] VITALS: BP 140/77
== END 2021-05-28 18:10 | disposition home or self-care (01) ==
LOC: ER 15:27
DX: R42 Dizziness and giddiness (principal); F15.10 Other stimulant abuse, uncomplicated; F17.210 Nicotine dependence, cigarettes, uncomplicated; Z88.0 Allergy status to penicillin; Z88.5 Allergy status to narcotic agent; Z88.2 Allergy status to sulfonamides; Z90.49 Acquired absence of other specified parts of digestive tract; Z98.51 Tubal ligation status
CPT/HCPCS: 36415; 70450; 80053; 81001; 82947; 84484; 85025; 87086; 93005; 96360; 96361; 99285; J7030

== ENCOUNTER 2021-07-28 10:55 | Emergency (ER) | payer SELFPAY ==
[~2021-07-28] VITALS: Ht 160 cm; Wt 104.5 kg
[~2021-07-28 10:55] MED LIST changes: +CLIN-95 PO; -CLIN300C9 PO
[2021-07-28 11:05] VITALS: BP 149/73
[2021-07-28] MEDS ORDERED: LOPE2TAB27 PO (11:30)
--- NOTE | 2021-07-28 11:39 | PHYS DOC ---
Past History Past Medical History: Bipolar, Constipation, Diabetes, DVT, Other Additional Past Medical Histor: Factor Five ; pulm emboli; anaphospholiptic syndrome Past Surgical History: No Surgical History Additional Past Surgical Histo: miko filter Smoking: Cigarettes Alcohol Use: None Drug Use: Methamphetamine Adult General Chief Complaint Chief Complaint: DIARRHEA HPI HPI Patient is a 51-year-old female presenting for diarrhea. Onset was 30 minutes prior to arrival. She reports having a total of 3 episodes of looser stools than usual which concerned her prompting her to come in for evaluation. She has no history of any significant GI abnormalities, no prior GI surgeries. She has no concerning exposures or changes in medication, has not been around anyone sick and does not work in the healthcare field or visited anyone in a healthcare facility. She has not been camping. She admits she has history of vasovagal symptoms after bearing down and losing fluid which concerned her prompting her to come in. She has not taken anything for her symptoms. She is not vaccinated against COVID-19 Review of Systems Review of Systems Fourteen body systems of review of systems have been reviewed. See HPI for pertinent positives and negative responses, other dooley all other systems are negative, non-pertinent or non-contributory Allergies Allergies Allergies Coded Allergies Type Severity Reaction Last Updated Verified Penicillins Allergy Severe anaphylaxis 05/28/21 Yes morphine Allergy Severe anaphylaxis 05/28/21 Yes carbamazepine Allergy Intermediate 05/28/21 Yes sulfamethoxazole Allergy Intermediate 05/28/21 Yes trimethoprim Allergy Intermediate 05/28/21 Yes Physical Exam Physical Exam Constitutional: Well developed, well nourished, no acute distress, non-toxic ap pearance. HENT: Normocephalic, atraumatic, bilateral external ears normal, oropharynx moist, no oral exudates, nose normal. Eyes: PERRLA, EOMI, conjunctiva normal, no discharge. Neck: Normal range of motion, no tenderness, supple, no stridor. Cardiovascular: Heart rate regular, sinus rhythm, no murmurs rubs or gallops Lungs & Thorax: Bilateral breath sounds clear to auscultation Abdomen: Bowel sounds normal, soft, no tenderness, no masses, no pulsatile masses. Nonsurgical abdomen, no peritoneal signs Skin: Warm, dry, no erythema, no rash. Back: No tenderness, no CVA tenderness. Extremities: No tenderness, no cyanosis, no clubbing, ROM intact, no edema. Neurologic: Alert and oriented X 3, grossly normal motor & sensory function, no focal deficits noted. Psychologic: Affect normal, judgement normal, mood normal. Current Patient Data Vital Signs Vital Signs Date Time Temp Pulse Resp B/P (MAP) Pulse Ox O2 Delivery O2 Flow Rate FiO2 07/28/21 11:05 98.3 86 20 149/73 (98) 99 Room Air EKG EKG [] Radiology/Procedures Radiology/Procedures [] Heart Score C/O Chest Pain: No Risk Factors: Risk Factors: DM, Current or recent (<one month) smoker, HTN, HLP, family history of CAD, obesity. Risk Scores: Risk Factors: DM, Current or recent (<one month) smoker, HTN, HLP, family history of CAD, obesity. Course & Med Decision Making Course & Med Decision Making ABCs unremarkable HPI and physical exam nonconcerning Patient has had looser stools that started 30 minutes prior. She has been tolerating p.o. intake nontoxic and hemodynamically stable. She has no risk factors for C. difficile or other infectious causes of her diarrhea Patient later disclosed that she ate a significant amount of leftover Arabic food, garlic bread and soda within prior 12 hours which could be contributing to patient's upset stomach and diarrhea I disclose little indication for further diagnostic work-up in ER setting. Patient discharged home with supportive care practices advised. I did recommend COVID-19 swab the patient deferred Caleb Disclaimer Khrison Disclaimer This electronic medical record was generated, in whole or in part, using a voice recognition dictation system. Departure Departure: Impression: Primary Impression: Diarrhea Disposition: HOME / SELF CARE / HOMELESS Condition: STABLE Referrals: SILVANA OLIVEIRA (PCP) Patient Instructions: Diarrhea, Diet for Diarrhea, Adult Additional Instructions: You were seen for diarrhea. You most likely have a viral illness which should resolve in the next few days to a week. You should return to the ED if you develop abdominal pain, fever > 100.3, black/bloody stools, black/bloody vomiting, cannot keep water down, or any other new or concerning symptoms. Scripts Loperamide Hcl (LOPERAMIDE) 2 Mg Tablet 1 TAB PO Q4HRS for loose stool for 30 Days, #180 TAB 0 Refills Prov: JAM EL DO 07/28/21 JAM EL DO Jul 28, 2021 11:39
[2021-07-28] MEDS ORDERED: LOPERAMIDE 2 MG CAPSULE PO ONE (11:45)
== END 2021-07-28 11:47 | disposition home or self-care (01) ==
LOC: ER 10:55
DX: R19.7 Diarrhea, unspecified (principal); F31.9 Bipolar disorder, unspecified; E11.9 Type 2 diabetes mellitus without complications; Z86.718 Personal history of other venous thrombosis and embolism; F17.210 Nicotine dependence, cigarettes, uncomplicated; Z88.0 Allergy status to penicillin; Z88.5 Allergy status to narcotic agent; Z88.2 Allergy status to sulfonamides; Z88.8 Allergy status to other drugs, medicaments and biological substances
CPT/HCPCS: 99282; 99283

== ENCOUNTER 2021-08-26 04:40 | Emergency (ER) | payer SELFPAY ==
[~2021-08-26] VITALS: Ht 160 cm; Wt 93.9 kg
[~2021-08-26 04:40] MED LIST changes: +LOPE2TAB27 PO
--- NOTE | 2021-08-26 04:46 | PHYS DOC ---
Past History Past Medical History: Bipolar, Constipation, Diabetes, DVT, Other Additional Past Medical Histor: Factor Five ; pulm emboli; anaphospholiptic syndrome Past Surgical History: No Surgical History Additional Past Surgical Histo: miko filter Smoking: Cigarettes Alcohol Use: None Drug Use: Methamphetamine Adult General Chief Complaint Chief Complaint: Palpitations HPI HPI Patient is a 51-year-old female who presents with a chief complaint of nausea and vomiting, nonbloody nonbilious x2 this morning and some body aches. States that her grandson who stays with her was diagnosed with the flu on Friday. Denies any recent travels, traumas, fevers, chest pain, shortness of breath, abdominal pain, dysuria, hematuria, blood in the stool or diarrhea. States she would like some medicine for nausea and a work note for the next 2 days because she think she has the flu. States she is able to eat and drink. States she is making urine and stool normally for her. Review of Systems Review of Systems Constitutional: Denies fever or chills [] Eyes: Denies change in visual acuity, redness, or eye pain [] HENT: Denies nasal congestion or sore throat [] Respiratory: Denies cough or shortness of breath [] Cardiovascular: No additional information not addressed in HPI [] GI: Denies abdominal pain, nausea, vomiting, bloody stools or diarrhea [] : Denies dysuria or hematuria [] Musculoskeletal: Denies back pain or joint pain [] Integument: Denies rash or skin lesions [] Neurologic: Denies headache, focal weakness or sensory changes [] Endocrine: Denies polyuria or polydipsia [] All other systems were reviewed and found to be within normal limits, except as documented in this note. Allergies Allergies Allergies Coded Allergies Type Severity Reaction Last Updated Verified Penicillins Allergy Severe anaphylaxis 05/28/21 Yes morphine Allergy Severe anaphylaxis 05/28/21 Yes carbamazepine Allergy Intermediate 05/28/21 Yes sulfamethoxazole Allergy Intermediate 05/28/21 Yes trimethoprim Allergy Intermediate 05/28/21 Yes Physical Exam Physical Exam Constitutional: Well developed, well nourished, no acute distress, non-toxic appearance. [] HENT: Normocephalic, atraumatic, bilateral external ears normal, oropharynx moist, no oral exudates, nose normal. [] Eyes: conjunctiva normal, no discharge. [] Neck: Normal range of motion, no tenderness, supple, no stridor. [] Cardiovascular:Heart rate regular rhythm, no murmur [] Lungs & Thorax: Bilateral breath sounds clear to auscultation [] Abdomen: soft, no tenderness, no masses, no pulsatile masses. [] Skin: Warm, dry, no erythema, no rash. [] Back: No tenderness, no CVA tenderness. [] Extremities: No tenderness, no cyanosis, no clubbing, ROM intact, no edema. [] Neurologic: Alert and oriented X 3, normal motor function, normal sensory function, no focal deficits noted. [] Psychologic: Affect normal, judgement normal, mood normal. [] EKG EKG [] Radiology/Procedures Radiology/Procedures [] Heart Score C/O Chest Pain: No Risk Factors: Risk Factors: DM, Current or recent (<one month) smoker, HTN, HLP, family h istory of CAD, obesity. Risk Scores: Risk Factors: DM, Current or recent (<one month) smoker, HTN, HLP, family history of CAD, obesity. Course & Med Decision Making Course & Med Decision Making Patient is a 51-year-old female, with recent exposure to influenza who presents with nausea and vomiting Vital signs not concerning. Physical exam noted above. EKG with a rate of 89, QRS of 92, QTc of 420, no STEMI. Given nausea medicine in the ED. Given starter pack for home. Patient declined Covid and/or flu swabs. Declined chest x-ray. Stated she just like to have some nausea medicine and a work note for the next 2 days. Given work note at her request given recent flu exposure as not to bring this to her worksite. Please follow-up with your primary care physician on Friday. Please come back with new or concerning symptoms as we discussed. [] Dragon Disclaimer Dragon Disclaimer This electronic medical record was generated, in whole or in part, using a voice recognition dictation system. Departure Departure: Impression: Primary Impression: Nausea & vomiting Disposition: HOME / SELF CARE / HOMELESS Condition: GOOD Referrals: VERNELL PHELPS APRN (PCP) Patient Instructions: Viral Syndrome Additional Instructions: Thank you for coming into the emergency department tonight allowing us to take care of you. Please read the attached information carefully to go back over so me of the things we discussed. Please be sure to drink plenty of fluids and try to eat at least 3 small meals a day. Please take your nausea medicine as prescribed and as needed. You can continue Tylenol and ibuprofen as needed as well. Please follow-up on Friday with your primary care physician update on ED visit and set up a follow-up appointment. Please come back with new or concerning symptoms as discussed. You are given a work note for the next 2 days. DENA WILKES MD Aug 26, 2021 04:46
[2021-08-26 04:50] VITALS: BP 145/64
[2021-08-26] MEDS ORDERED: GABA-586 PO (04:51)
[2021-08-26] MEDS ORDERED: elequis (04:51)
[2021-08-26] MEDS ORDERED: [UNRECOGNIZED DRUG - OTHER] (04:51)
[2021-08-26] MEDS ORDERED: PROMETHAZINE 25MG 4TABLET STARTPACK. PO ONE ×2 (05:10→05:15)
[2021-08-26] MEDS ORDERED: ONDANSETRON 4MG ODT 4TABLET STARTPACK. PO ONE (05:15)
[2021-08-26] MEDS ORDERED: ONDANSETRON ODT 4 MG TAB.RAPDIS PO ONE ×2 (05:15)
--- NOTE | 2021-08-26 05:50 | EKG ---
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
== END 2021-08-26 05:30 | disposition home or self-care (01) ==
LOC: ER 04:40
DX: R11.2 Nausea with vomiting, unspecified (principal); M79.10 Myalgia, unspecified site; F31.9 Bipolar disorder, unspecified; E11.9 Type 2 diabetes mellitus without complications; F17.210 Nicotine dependence, cigarettes, uncomplicated; Z86.718 Personal history of other venous thrombosis and embolism; Z88.0 Allergy status to penicillin; Z88.5 Allergy status to narcotic agent; Z88.2 Allergy status to sulfonamides; Z88.1 Allergy status to other antibiotic agents; Z88.8 Allergy status to other drugs, medicaments and biological substances
CPT/HCPCS: 82947; 93005; 99284; Q0162

== ENCOUNTER 2021-09-13 00:55 | Emergency (ER) | payer SELFPAY ==
[~2021-09-13] VITALS: Ht 160 cm; Wt 89.5 kg
[~2021-09-13 00:55] MED LIST changes: +GABA-586 PO; +[UNRECOGNIZED DRUG - OTHER]; +elequis
--- NOTE | 2021-09-13 01:34 | PHYS DOC ---
Past History Past Medical History: Bipolar, Constipation, Diabetes, DVT, Other Additional Past Medical Histor: Factor Five ; pulm emboli; anaphospholiptic syndrome;neuropathy Past Surgical History: Cholecystectomy, Tubal ligation Additional Past Surgical Histo: miko filter Smoking: Cigarettes Alcohol Use: None Drug Use: Methamphetamine General Adult EDM: Chief Complaint: BACK PAIN OR INJURY HPI: HPI: ".. I ve got really severe back pain.. it goes into my Rt. hip... and leg.. " Patient is a 51 year old female who presents with above hx and complaiints of Lower Back pain and sciatica complaints. Patient states pain has been much more severe tonight and unable to sleep. Patient denies any trauma. Patient denies any history of fever or chills. No history of cancer. No history of IV drug use no history of immunosuppression. Patient normally follows with Epifanio Lund no recent travel. No specific ill contacts. Review of Systems: Review of Systems: Constitutional: Denies fever or chills Eyes: Denies change in visual acuity HENT: Denies nasal congestion or sore throat Respiratory: Denies cough or shortness of breath Cardiovascular: Denies chest pain or edema GI: Denies abdominal pain, nausea, vomiting, bloody stools or diarrhea : Denies dysuria Musculoskeletal: Complains of right back pain and hip pain Integument: Denies rash Neurologic: Denies headache, focal weakness or sensory changes Endocrine: Denies polyuria or polydipsia Lymphatic: Denies swollen glands Psychiatric: Denies depression or anxiety Family History: Family History: Noncontributory to presentation Current Medications: Current Meds: See nursing for home meds Allergies: Allergies: Allergies Coded Allergies Type Severity Reaction Last Updated Verified Penicillins Allergy Severe anaphylaxis 05/28/21 Yes morphine Allergy Severe anaphylaxis 05/28/21 Yes carbamazepine Allergy Intermediate 05/28/21 Yes sulfamethoxazole Allergy Intermediate 05/28/21 Yes trimethoprim Allergy Intermediate 05/28/21 Yes Physical Exam: PE: Constitutional: Reports in acute distress, non-toxic appearance. [] HENT: Normocephalic, atraumatic, bilateral external ears normal, oropharynx moist, no oral exudates, nose normal. [] Eyes: PERRLA, EOMI, conjunctiva normal, no discharge. Glasses Neck: Normal range of motion, no tenderness, supple, no stridor. [] Cardiovascular:Heart rate regular rhythm, no murmur [] Lungs & Thorax: Bilateral breath sounds clear to auscultation [] Abdomen: Bowel sounds normal, soft, no tenderness, no masses, no pulsatile masses. Obese. Old surgery scars. Skin: Warm, dry, no erythema, no rash. [] Back: No tenderness, no CVA tenderness. [] Extremities: No tenderness, no cyanosis, no clubbing, ROM intact, no edema. [] Right lumbar sacral and hip pain Neurologic: Alert and oriented X 3, normal motor function, normal sensory fun ction, no focal deficits noted. [] Psychologic: Affect anxious, judgement normal, mood normal. [] EKG: EKG: [] Radiology/Procedures: Radiology/Procedures: [][address] [address] IMAGING REPORT Signed PATIENT: CHRIS SWANSON ACCOUNT: [id number] : 1970 LOCATION: ER AGE: 51 SEX: F EXAM STATUS: REG ER ORD. PHYSICIAN: MC GUO MD REASON: Lower back pain PROCEDURE: CT LUMBAR SPINE RECONSTRUCTION EXAM: 1. CT ABDOMEN/PELVIS WITHOUT CONTRAST. 2. CT LUMBAR SPINE WITHOUT CONTRAST. HISTORY: Abdominal and low back pain. TECHNIQUE: Computed tomography of the abdomen and pelvis was performed without intravenous contrast. The lumbar spine was reconstructed from CT images. One or more of the following individualized dose reduction techniques were utilized for this examination: 1. Automated exposure control. 2. Adjustment of the mA and/or kV according to patient size. 3. Use of iterative reconstruction technique. COMPARISON: 12/17/2020. FINDINGS: Lung windows through the visualized portions of the bases reveal a nodule or scarring in the left costophrenic angle on image 34 measuring 4 mm. This is stable and likely benign at this small size. Bone windows reveal no suspicious lesions. Lumbar alignment is normal. Vertebral body heights are maintained, and no frac tures are identified. There is a Schmorl's node at the superior endplate of T10. Intervertebral disc heights are maintained. There is no central canal stenosis or neural foraminal stenosis. There is mild facet osteoarthritis bilaterally at L5-S1. The gallbladder is surgically absent. The liver, pancreas, adrenal glands, spleen and kidneys are unremarkable without contrast. There are no renal or ureteral calculi. The bladder is decompressed but demonstrates some wall thickening. The appendix is not inflamed. There is no small bowel obstruction. There are no pathologically enlarged lymph nodes. An inferior vena cava filter is in place. Its tines extend beyond the wall of the inferior vena cava without evidence of complication. The uterus and ovaries are unremarkable by noncontrast CT. IMPRESSION: 1. No renal or ureteral calculi. No acute intra-abdominal findings. 2. Negative examination of the lumbar spine. Electronically signed by: Rupert Gracia MD (09/13/2021 4:38 AM) [facility] DICTATED AND SIGNED BY: MISTY GRACIA MD DATE: 09/13/21430 CC: MC GUO MD; VERNELL PHELPS APRN ~MTH0 0 Heart Score: C/O Chest Pain: N/A Risk Factors: Risk Factors: DM, Current or recent (<one month) smoker, HTN, HLP, family history of CAD, obesity. Risk Scores: Score 0 - 3: 2.5% MACE over next 6 weeks - Discharge Home Score 4 - 6: 20.3% MACE over next 6 weeks - Admit for Clinical Observation Score 7 - 10: 72.7% MACE over next 6 weeks - Early Invasive Strategies Course & Med Decision Making: Course & Med Decision Making Pertinent Labs and Imaging studies reviewed. (See chart for details) Patient take Tylenol and ibuprofen for pain. Use lidocaine patch. Follow-up primary care. Consider follow-up with radiology for MRI if continued pain. Pu sh fluids. Return if any concerns. Impression; 1.. Lumbosacral back pain- Sciatica Rt. [] Caleb Disclaimer: Caleb Disclaimer: This electronic medical record was generated, in whole or in part, using a voice recognition dictation system. Departure Departure: Referrals: VERNELL PHELPS APRN (PCP) Scripts Lidocaine/Menthol (Lidall 4%-1% Patch) 1 Each Adh..patch 1 EACH TP DAILY for sciatica, #10 PATCH Prov: MC GUO MD 09/13/21 MC GUO MD Sep 13, 2021 01:34
[2021-09-13 01:54] VITALS: BP 127/78
[2021-09-13] MEDS ORDERED: KETOROLAC 60 MG/2 ML VIAL. IM ONE (02:15)
[2021-09-13] MEDS ORDERED: ORPHENADRINE CITRATE 60 MG/2 ML VIAL. IM ONE (02:15)
[2021-09-13 02:51] LABS: BILIRUBIN,URINE SMALL (NEG); CLARITY,URINE CLEAR; COLOR,URINE YELLOW; GLUCOSE,URINE NEG (NEG)
[2021-09-13 02:52] LABS: BACTERIA,URINE 0 /HPF (0-FEW); NITRITE,URINE NEG (NEG); RBC,URINE 0 /HPF (0-2); SQUAMOUS EPITHELIAL CELL,UR FEW /LPF; WBC,URINE 0 /HPF (0-4)
--- NOTE | 2021-09-13 04:41 | RAD ---
EXAM: 1. CT ABDOMEN/PELVIS WITHOUT CONTRAST. 2. CT LUMBAR SPINE WITHOUT CONTRAST. HISTORY: Abdominal and low back pain. TECHNIQUE: Computed tomography of the abdomen and pelvis was performed without intravenous contrast. The lumbar spine was reconstructed from CT images. One or more of the following individualized dose r eduction techniques were utilized for this examination: 1. Automated exposure control. 2. Adjustment of the mA and/or kV according to patient size. 3. Use of iterative reconstruction technique. COMPARISON: 12/17/2020. FINDINGS: Lung windows through the visualized portions of the bases reveal a nodule or scarring in th e left costophrenic angle on image 34 measuring 4 mm. This is stable and likely benign at this small size. Bone windows reveal no suspicious lesions. Lumbar alignment is normal. Vertebral body heights are maintained, and no fractures are identified. T here is a Schmorl's node at the superior endplate of T10. Intervertebral disc heights are maintained. There is no central canal stenosis or neural foraminal stenosis. There is mild facet osteoarthritis bilaterally at L5-S1. The gallbladder is surgically absent. The liver, pancreas, adrenal glands, spleen and kidneys are unr emarkable without contrast. There are no renal or ureteral calculi. The bladder is decompressed but demonstrates some wall thickening. The appendix is not inflamed. Ther e is no small bowel obstruction. There are no pathologically enlarged lymph nodes. An inferior vena cava filter is in place. Its tines extend beyond the wall of the inferior vena cava without evidence of complication. The uterus and ov abraham are unremarkable by noncontrast CT. IMPRESSION: 1. No renal or ureteral calculi. No acute intra-abdominal findings. 2. Negative examination of the lumbar spine. Electronically signed by: Rupert Gracia MD (09/13/2021 4:38 AM) [facility]
[2021-09-13] MEDS ORDERED: LIDO1ADH10 TP (04:48)
[2021-09-13] MEDS ORDERED: LIDOCAINE (700MG/PATCH) PATCH. TD SCH (04:52)
[2021-09-13] MEDS ORDERED: PATCH REMOVAL. MC SCH (21:00)
== END 2021-09-13 04:55 | disposition home or self-care (01) ==
LOC: ER 00:55
DX: M54.41 Lumbago with sciatica, right side (principal); F31.9 Bipolar disorder, unspecified; F17.210 Nicotine dependence, cigarettes, uncomplicated; E11.40 Type 2 diabetes mellitus with diabetic neuropathy, unspecified; Z86.718 Personal history of other venous thrombosis and embolism; Z90.49 Acquired absence of other specified parts of digestive tract; Z98.51 Tubal ligation status; Z88.0 Allergy status to penicillin; Z88.5 Allergy status to narcotic agent; Z88.2 Allergy status to sulfonamides; Z88.1 Allergy status to other antibiotic agents; Z88.8 Allergy status to other drugs, medicaments and biological substances
CPT/HCPCS: 74176; 76376; 81001; 96372; 99284; J1885; J2360

== ENCOUNTER 2021-10-11 10:27 | Emergency (ER) | payer SELFPAY ==
[~2021-10-11] VITALS: Ht 162.6 cm; Wt 77.0 kg
[~2021-10-11 10:27] MED LIST changes: +LIDO1ADH10 TP
[2021-10-11] MEDS ORDERED: IV NORMAL SALINE 1,000ML 1,000 ML IV SCH (10:30)
--- NOTE | 2021-10-11 10:55 | RAD ---
XR CHEST 1V Clinical Indication: Reason: palpitations Comparison: Two-view chest September 05, 2020. Findings: The cardiomediastinal silhouette is normal. Lungs are clear. There is no pneumothorax. No pleural eff usion is appreciated. No acute bone abnormality. IMPRESSION: No acute cardiopulmonary process. Electronically signed by: Nabeel Matthews MD (10/11/2021 10:52 AM) [id number]
[2021-10-11 11:27] LABS: BASO % 0 % (0-3); EOS % 0 % (0-3); HEMATOCRIT 40.3 % (36.0-47.0); HEMOGLOBIN 13.5 g/dL (12.0-15.5); LYMPH # 1.3 x10^3/uL (1.0-4.8); LYMPH % 14 % (24-48); MEAN CORPUSCULAR HEMOGLOBIN 28 pg (25-35); MEAN CORPUSCULAR HGB CONC 33 g/dL (31-37); MEAN CORPUSCULAR VOLUME 85 fL (79-100); MONO # 0.3 x10^3/uL (0.0-1.1); MONO % 4 % (0-9); NEUT # 7.5 x10^3uL (1.8-7.7); NEUT % 81 % (31-73); PLATELET COUNT 266 x10^3/uL (140-400); RED BLOOD COUNT 4.74 x10^6/uL (3.50-5.40); RED CELL DISTRIBUTION WIDTH 13.9 % (11.5-14.5); WHITE BLOOD COUNT 9.3 x10^3/uL (4.0-11.0)
[2021-10-11 11:46] LABS: BARBITURATES NEG (NEG); BENZODIAZEPINES NEG (NEG); CANNABINOIDS NEG (NEG); COCAINE NEG (NEG); METHADONE NEG (NEG); OPIATES NEG (NEG); PHENCYCLIDINE NEG (NEG)
[2021-10-11 11:48] LABS: AMPHETAMINE/METHAMPHETAMINE NEG (NEG)
--- NOTE | 2021-10-11 11:50 | PHYS DOC ---
Past History Past Medical History: Bipolar, Constipation, Diabetes, DVT, Other Additional Past Medical Histor: Factor Five; pulm emboli; anaphospholiptic syndrome; neuropathy (JACE SNOW) Past Surgical History: Cholecystectomy, Tubal ligation Additional Past Surgical Histo: miko filter (JACE SNOW) Smoking: Cigarettes Alcohol Use: None Drug Use: Methamphetamine (JACE SNOW) General Adult EDM: Chief Complaint: Palpitations HPI: HPI: Patient is a 51 year old female who presents with palpitations that began approximately 1 hour prior to arrival. Patient states that she has history of palpitations and has been on a Holter monitor for 48 hours in the past. There were no findings at that time. She reports associated sensation of "pounding from the inside" and lightheadedness when she has an elevated heart rate. Patient states the symptoms are worse when she stands up and resolve when she sits to rest. She denies chest pressure or tightness, nausea, vomiting, diaphoresis, shortness of breath, dyspnea, cough. Patient denies having contacted her box person at this point for her symptoms today. (JACE SNOW) Review of Systems: Review of Systems: Constitutional: Denies fever, chills or generalized weakness Eyes: Denies change in visual acuity, visual field deficits or discharge HENT: Denies ear pain, nasal congestion or sore throat Respiratory: See HPI Cardiovascular: See HPI GI: See HPI : Denies dysuria or hematuria Musculoskeletal: Denies back pain or joint pain Integument: Denies rash or other skin lesion Neurologic: Denies headache, focal weakness or sensory changes (JACE SNOW) Current Medications: Current Meds: Current Medications Medications (Trade) Dose Ordered Sig/Chip Start Time Stop Time Status Last Admin Dose Admin Sodium Chloride 1,000 ml @ 100 mls/hr Q10H 10/11/21 10:30 10/11/21 20:29 10/11/21 11:33 100 MLS/HR (JACE SNOW) Allergies: Allergies: Allergies Coded Allergies Type Severity Reaction Last Updated Verified Penicillins Allergy Severe anaphylaxis 05/28/21 Yes morphine Allergy Severe anaphylaxis 05/28/21 Yes carbamazepine Allergy Intermediate 05/28/21 Yes sulfamethoxazole Allergy Intermediate 05/28/21 Yes trimethoprim Allergy Intermediate 05/28/21 Yes (JACE SNOW) Physical Exam: PE: Constitutional: Well developed, well nourished, no acute distress, non-toxic appearance. HENT: Normocephalic, atraumatic, bilateral external ears normal, nose normal. Eyes: EOMI, conjunctiva normal, no discharge. Neck: Normal range of motion, no stridor, no JVD. Cardiovascular: Heart rate regular rhythm, no murmur. Lungs & Thorax: Bilateral breath sounds clear to auscultation. Skin: Warm, dry, no erythema, no rash. Extremities: No tenderness, no cyanosis, no clubbing, ROM intact, no edema. Neurologic: Alert and oriented x4, no focal deficits noted. (JACE SNOW) Current Patient Data: Labs: Laboratory Tests Test 10/11/21 11:00 White Blood Count 9.3 x10^3/uL (4.0-11.0) Red Blood Count 4.74 x10^6/uL (3.50-5.40) Hemoglobin 13.5 g/dL (12.0-15.5) Hematocrit 40.3 % (36.0-47.0) Mean Corpuscular Volume 85 fL (79-100) Mean Corpuscular Hemoglobin 28 pg (25-35) Mean Corpuscular Hemoglobin Concent 33 g/dL (31-37) Red Cell Distribution Width 13.9 % (11.5-14.5) Platelet Count 266 x10^3/uL (140-400) Neutrophils (%) (Auto) 81 % (31-73) H Lymphocytes (%) (Auto) 14 % (24-48) L Monocytes (%) (Auto) 4 % (0-9) Eosinophils (%) (Auto) 0 % (0-3) Basophils (%) (Auto) 0 % (0-3) Neutrophils # (Auto) 7.5 x10^3uL (1.8-7.7) Lymphocytes # (Auto) 1.3 x10^3/uL (1.0-4.8) Monocytes # (Auto) 0.3 x10^3/uL (0.0-1.1) Eosinophils # (Auto) 0.0 x10^3/uL (0.0-0.7) Basophils # (Auto) 0.0 x10^3/uL (0.0-0.2) Vital Signs: VS - Last 72 Hours, by Label Date Time Temp Pulse Resp B/P (MAP) Pulse Ox O2 Delivery O2 Flow Rate FiO2 10/11/21 12:21 97.9 98 18 105/68 (80) 97 Room Air (JACE SNOW) EKG: EKG: EKG Interpreted by Dr. El at 1120: Regular rate and rhythm 85 bpm with no e ctopic beats. T wave inversion in leads III and aVF. QT 376 ms/QTc 448 ms. No STEMI. (JACE SNOW) Radiology/Procedures: Radiology/Procedures: PROCEDURE: PORTABLE CHEST 1V XR CHEST 1V Clinical Indication: Reason: palpitations Comparison: Two-view chest September 05, 2020. Findings: The cardiomediastinal silhouette is normal. Lungs are clear. There is no pneumothorax. No pleural effusion is appreciated. No acute bone abnormality. IMPRESSION: No acute cardiopulmonary process. Electronically signed by: Nabeel Matthews MD (10/11/2021 10:52 AM) [id number] (JACE SNOW) Heart Score: C/O Chest Pain: N/A HEART Score for Chest Pain: HEART Score for Chest Pain Response (Comments) Value History Slighlty/Non-Suspicious 0 ECG Nonspecific Repolarizatio 1 Age >45 - < 65 1 Risk Factors No Risk Factors 0 Troponin < Normal Limit 0 Total 2 Risk Factors: Risk Factors: Current or recent (<one month) smoker Risk Scores: Score 0 - 3: 2.5% MACE over next 6 weeks - Discharge Home Score 4 - 6: 20.3% MACE over next 6 weeks - Admit for Clinical Observation Score 7 - 10: 72.7% MACE over next 6 weeks - Early Invasive Strategies (JACE SNOW) Course & Med Decision Making: Course & Med Decision Making Pertinent Labs and Imaging studies reviewed. (See chart for details) Patient is a 51-year-old female well-known to the emergency department who presents with intermittent palpitations and lightheadedness. Work-up today will include EKG, chest x-ray, lab work including troponin. Work-up today is largely unremarkable, except for slight hypocalcemia. Patient counseled on daily intake of calcium as well as need for follow-up with primary care and/or cardiology. Patient states that she already is in the process of obtaining a referral to see her box person again from her primary care. I advised that she continue this process, to see it through. Patient was given return precautions. She is hemodynamically stable and has remained in sinus rhythm during her entire stay in the department. Patient understands and is agreeable to discharge plan. (JACE SNOW) Course & Med Decision Making I was the Attending physician on the above date of service of this patient. This patient was evaluated, examined, treated, and dispositioned from the emergency department by the mid-level practitioner. Although I was working at the time , no assistance was requested. Electronically signed, Jam El DO (JAM EL DO) Caleb Disclaimer: Caleb Disclaimer: This electronic medical record was generated, in whole or in part, using a voice recognition dictation system. (JACE SNOW) Departure Departure: Impression: Primary Impression: Intermittent palpitations Additional Impression: Hypocalcemia Disposition: HOME / SELF CARE / HOMELESS Condition: STABLE Referrals: VERNELL PHELPS APRN (PCP) Patient Instructions: Calcium Intake Recommendations, Palpitations, [id number] Additional Instructions: EMERGENCY DEPARTMENT GENERAL DISCHARGE INSTRUCTIONS Thank you for coming to [facility] (ED) today and trusting us with you care. We trust that you had a positive experience in our Emergency Department. If you wish to speak to the department management, you may call the director at [phone]. YOUR FOLLOW UP INSTRUCTIONS ARE FOLLOWS: 1. You should make an appointment with your box person for further evaluation and management. Your primary care doctor may assist you with follow up care. 2. The Emergency Physician has interpreted your x-rays. The X-Ray specialist also reviewed them. If there is a change in the findings, you will be notified in 48 hours when at all possible. 3. A lab test or culture has been done, your results will be reviewed and you will be notified if you need a change in treatment. ADDITIONAL INSTRUCTIONS AND INFORMATION: 1. Your care today has been supervised by a physician who is specially trained in emergency care. Many problems require more than one evaluation for a complete diagnosis and treatment. We recommend that you schedule your follow up appointment as recommended to ensure complete treatment of you illness or injury. If you are unable to obtain follow up care and continue to have a problem, or if your condition worsens, we recommend that you return to the ED. 2. We are not able to safely determine your condition over the phone nor are we able to give sound medical advice over the phone. For these safety reasons, if you call for medical advice we will ask you to come to the ED for further evaluation. 3. If you have any questions regarding these discharge instructions please call the ED at [phone]. SAFETY INFORMATION: In the interest of safety, wellness, and injury prevention; we encourage you to wear your seat belt, if you smoke; quite smoking, and we encourage family to use a protective helmet for bicycling and other sporting events that present an increased risk for head injury. IF YOUR SYMPTOMS WORSEN OR NEW SYMPTOMS DEVELOP, OR YOU HAVE CONCERNS ABOUT YOUR CONDITION; OR IF YOUR CONDITION WORSENS WHILE YOU ARE WAITING FOR YOUR FOLLOW UP APPOINTMENT; EITHER CONTACT YOUR PRIMARY CARE DOCTOR, THE PHYSICIAN WHOSE NAME AND NUMBER YOU WERE GIVEN, OR RETURN TO THE ED IMMEDIATELY. JACE SNOW Oct 11, 2021 11:50 JAM EL DO Oct 11, 2021 15:45
[2021-10-11 11:56] LABS: CALCIUM 8.2 mg/dL (8.5-10.1); CREATININE 0.7 mg/dL (0.6-1.0); GFR 88.9; POTASSIUM 3.8 mmol/L (3.5-5.1)
[2021-10-11 12:00] LABS: ALBUMIN 3.6 g/dL (3.4-5.0); ALBUMIN/GLOBULIN RATIO 1.1 (1.0-1.7); TOTAL BILIRUBIN 0.6 mg/dL (0.2-1.0); TOTAL PROTEIN 6.9 g/dL (6.4-8.2)
[2021-10-11 12:12] LABS: BACTERIA,URINE 0 /HPF (0-FEW); BILIRUBIN,URINE NEG (NEG); CLARITY,URINE CLEAR; COLOR,URINE YELLOW; GLUCOSE,URINE NEG (NEG); NITRITE,URINE NEG (NEG); SQUAMOUS EPITHELIAL CELL,UR MOD /LPF; UROBILINOGEN,URINE 0.2 mg/dL (0.2 mg/dL)
[2021-10-11 12:21] VITALS: BP 105/68
--- NOTE | 2021-10-11 12:54 | EKG ---
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
== END 2021-10-11 14:00 | disposition home or self-care (01) ==
LOC: ER 10:27
DX: E83.51 Hypocalcemia (principal); R00.2 Palpitations; F31.9 Bipolar disorder, unspecified; E11.9 Type 2 diabetes mellitus without complications; F17.210 Nicotine dependence, cigarettes, uncomplicated; Z86.73 Personal history of transient ischemic attack (TIA), and cerebral infarction without residual deficits; Z88.0 Allergy status to penicillin; Z88.5 Allergy status to narcotic agent; Z88.1 Allergy status to other antibiotic agents; Z88.2 Allergy status to sulfonamides; Z88.8 Allergy status to other drugs, medicaments and biological substances
CPT/HCPCS: 36415; 71045; 80053; 80307; 81001; 83735; 84484; 85025; 93005; 96360; 96361; 99285; J7030

== ENCOUNTER 2021-10-13 11:19 | Emergency (ER) | payer SELFPAY ==
[~2021-10-13] VITALS: Ht 160 cm; Wt 86.0 kg
[2021-10-13 11:33] VITALS: BP 133/53
[2021-10-13] MEDS ORDERED: hydrOXYzine HCL 25 MG TABLET PO PRN (11:45)
[2021-10-13] MEDS ORDERED: HYDR25TA PO (11:48)
--- NOTE | 2021-10-13 11:48 | PHYS DOC ---
Past History Past Medical History: Bipolar, Constipation, Diabetes, DVT, Other Additional Past Medical Histor: Factor Five; pulm emboli; anaphospholiptic syndrome; neuropathy (JESSICA MELGAR APRN) Past Surgical History: No Surgical History Additional Past Surgical Histo: miko filter (JESSICA MELGAR APRN) Smoking: Cigarettes Alcohol Use: None Drug Use: Methamphetamine (JESSICA MELGAR APRN) General Adult EDM: Chief Complaint: MEDICATION REFILL HPI: HPI: Patient is a 51-year-old female who presents with anxiety. Patient states that she normally takes hydroxyzine for her symptoms and she ran out. Patient states that she was at work today when she started having anxiety and it continues to come in waves. Denies chest pain, shortness of breath. Denies pain. Patient has history of anxiety, bipolar disorder diabetes. (JESSICA MELGAR APRN) Review of Systems: Review of Systems: ROS At least 10 ROS systems have been reviewed and are negative except as documented in the HPI. General: Negative except as outlined in HPI above. Skin: Negative except as outlined in HPI above. HEENT: Negative except as outlined in HPI above. Neck: Negative except as outlined in HPI above. Respiratory: Negative except as outlined in HPI above.. Cardiovascular: Negative except as outlined in HPI above. Abdomen: Negative except as outlined in HPI above. : Negative except as outlined in HPI above. Back/MSK: Negative except as outlined in HPI above. Neuro: Negative except as outlined in HPI above. Psych: Negative except as outlined in HPI above. (JESSICA MELGAR APRN) Allergies: Allergies: Allergies Coded Allergies Type Severity Reaction Last Updated Verified Penicillins Allergy Severe anaphylaxis 05/28/21 Yes morphine Allergy Severe anaphylaxis 05/28/21 Yes carbamazepine Allergy Intermediate 05/28/21 Yes sulfamethoxazole Allergy Intermediate 05/28/21 Yes trimethoprim Allergy Intermediate 05/28/21 Yes (JESSICA MELGAR APRN) Physical Exam: PE: Constitutional: Well developed, well nourished, no acute distress, non-toxic appearance. [] HENT: Normocephalic, atraumatic, bilateral external ears normal, oropharynx moist, no oral exudates, nose normal. [] Eyes: PERRLA, EOMI, conjunctiva normal, no discharge. [] Neck: Normal range of motion, no tenderness, supple, no stridor. [] Cardiovascular:Heart rate regular rhythm, no murmur [] Lungs & Thorax: Bilateral breath sounds clear to auscultation [] Abdomen: Bowel sounds normal, soft, no tenderness, no masses, no pulsatile mas ses. [] Skin: Warm, dry, no erythema, no rash. [] Back: No tenderness, no CVA tenderness. [] Extremities: No tenderness, no cyanosis, no clubbing, ROM intact, no edema. [] Neurologic: Alert and oriented X 3, normal motor function, normal sensory function, no focal deficits noted. [] Psychologic: Affect normal, judgement normal, anxious mood (JESSICA MELGAR APRN) Current Patient Data: Vital Signs: Vital Signs Date Time Temp Pulse Resp B/P (MAP) Pulse Ox O2 Delivery O2 Flow Rate FiO2 10/13/21 11:33 97.9 83 16 133/53 (79) 99 Room Air (JESSICA MELGAR APRN) EKG: EKG: [] (JESSICA MELGAR APRN) Radiology/Procedures: Radiology/Procedures: [] (JESSICA MELGAR APRN) Heart Score: C/O Chest Pain: No Risk Factors: Risk Factors: DM, Current or recent (<one month) smoker, HTN, HLP, family history of CAD, obesity. Risk Scores: Score 0 - 3: 2.5% MACE over next 6 weeks - Discharge Home Score 4 - 6: 20.3% MACE over next 6 weeks - Admit for Clinical Observation Score 7 - 10: 72.7% MACE over next 6 weeks - Early Invasive Strategies (JESSICA MELGAR APRN) Course & Med Decision Making: Course & Med Decision Making Pertinent Labs and Imaging studies reviewed. (See chart for details) [] 51-year-old female presents with anxiety and requesting a medication refill of her hydroxyzine. Patient currently sees Dr. Vela at [facility]. Patient started having an anxiety attack today at work and is out of her medi cations. Patient given hydroxyzine while in the ER. Sent home with prescription for hydroxyzine until she can follow-up with her PCP. Discussed return precautions. Patient is hemodynamically stable (JESSICA MELGAR APRN) Caleb Disclaimer: Caleb Disclaimer: This electronic medical record was generated, in whole or in part, using a voice recognition dictation system. (JESSICA MELGAR APRN) Attending Co-Sign The patient was seen and interviewed as well as examined at the bedside. The chart was reviewed. The case was discussed. Agree with the plan of care. (MARQUITA CATHERINE DO) Departure Departure: Impression: Primary Impression: Anxiety Disposition: 01 HOME / SELF CARE / HOMELESS Condition: STABLE Referrals: VERNELL VELA APRN (PCP) Patient Instructions: Anxiety and Panic Attacks, [id number] Additional Instructions: Here here for anxiety and medication refill. You need to follow-up with your PCP to be represcribed medication. Return to the emergency room for worsening symptoms or concerns EMERGENCY DEPARTMENT GENERAL DISCHARGE INSTRUCTIONS Thank you for coming to [facility] (ED) today and trusting us with you care. We trust that you had a positivie experience in our Emergency Department. If you wish to speak to the department management, you may call the director at [phone]. YOUR FOLLOW UP INSTRUCTIONS ARE FOLLOWS: 1. Do you have a private Doctor? If you do not have a private doctor, please ask for a resource list of physicians or clinics that may be able to assist you with follow up care. 2. The Emergency Physician has interpreted your x-rays. The X-Ray specialist will also review them. If there is a change in the findings, you will be notified in 48 hours when at all possible. 3. A lab test or culture has been done, your results will be reviewed and you will be notified if you need a change in treatment. ADDITIONAL INSTRUCTIONS AND INFORMATION: 1. Your care today has been supervised by a physician who is specially trained in emergency care. Many problems require more than one evaluation for a complete diagnosis and treatment. We recommend that you schedule your follow up appointment as recommended to ensure complete treatment of you illness or injury. If you are unable to obtain follow up care and continue to have a problem, or if your condition worsens, we recommend that you return to the ED. 2. We are not able to safely determine your condition over the phone nor are we able to give sound medical advice over the phone. For these safety reasons, if you call for medical advice we will ask you to come to the ED for further evaluation. 3. If you have any questions regarding these discharge instructions please call the ED at [phone]. SAFETY INFORMATION: In the interest of safety, wellness, and injury prevention; we encourage you to wear your sealbelt, if you smoke; quite smoking, and we encourage family to use a protective helmet for bicycling and other sporting events that present an increased risk for head injury. IF YOUR SYMPTOMS WORSEN OR NEW SYMPTOMS DEVELOP, OR YOU HAVE CONCERNS ABOUT YOUR CONDITION; OR IF YOUR CONDITION WORSENS WHILE YOU ARE WAITING FOR YOUR FOLLOW UP APPOINTMENT; EITHER CONTACT YOUR PRIMARY CARE DOCTOR, THE PHYSICIAN WHOSE NAME AND NUMBER YOU WERE GIVEN, OR RETURN TO THE ED IMMEDIATELY. Scripts Hydroxyzine Hcl (HYDROXYZINE HCL) 25 Mg Tablet 25 MG PO PRN Q6HRS PRN for ANXIETY / AGITATION for 7 Days, #30 TAB Prov: JESSICA MELGAR APRN 10/13/21 JESSICA MELGAR APRN Oct 13, 2021 11:48 MARQUITA CATHERINE DO Oct 14, 2021 06:17
== END 2021-10-13 11:59 | disposition home or self-care (01) ==
LOC: ER 11:19
DX: F41.9 Anxiety disorder, unspecified (principal); F31.9 Bipolar disorder, unspecified; E11.9 Type 2 diabetes mellitus without complications; F17.210 Nicotine dependence, cigarettes, uncomplicated; Z86.718 Personal history of other venous thrombosis and embolism; Z88.0 Allergy status to penicillin; Z88.5 Allergy status to narcotic agent; Z88.2 Allergy status to sulfonamides; Z88.1 Allergy status to other antibiotic agents; Z88.8 Allergy status to other drugs, medicaments and biological substances
CPT/HCPCS: 99283

== ENCOUNTER 2021-10-14 03:04 | Emergency (ER) | payer SELFPAY ==
[~2021-10-14] VITALS: Ht 160 cm; Wt 86.0 kg
--- NOTE | 2021-10-14 04:19 | PHYS DOC ---
Past History Past Medical History: Bipolar, Constipation, Diabetes, DVT, Other Past Surgical History: Other Additional Past Surgical Histo: miko filter Smoking: Cigarettes Alcohol Use: None Drug Use: Methamphetamine Adult General Chief Complaint Chief Complaint: RAPID HEART RATE HPI HPI Patient is a 51-year-old male presenting via POV for palpitations. Reports onset was approximately 1 hour prior to arrival while at work. States she was carrying a heavy box when she felt her heart flutter. This made her nervous and so she stopped all activity and checked her pulse which was elevated which concerned her. States she had generalized chest tightness with vague numbness and tingling to bilateral upper extremities which concerned her prompting her to transport herself to our facility for evaluation. She discloses she has been to our ER numerous times recently and had extensive evaluation 72 hours prior that was unremarkable. She has no history of cardiac disease and is seeing a facilities and grounds director in the outpatient setting before with recent record/event monitor that was unremarkable. Discloses only other medical conditions or mental health in nature and she admits she has not been taking her outpatient medications such as olanzapine and other ones she cannot recall as she stated she did not feel she needed them. Review of Systems Review of Systems Fourteen body systems of review of systems have been reviewed. See HPI for pertinent positives and negative responses, other dooley all other systems are negative, non-pertinent or non-contributory Allergies Allergies Allergies Coded Allergies Type Severity Reaction Last Updated Verified Penicillins Allergy Severe anaphylaxis 05/28/21 Yes morphine Allergy Severe anaphylaxis 05/28/21 Yes carbamazepine Allergy Intermediate 05/28/21 Yes sulfamethoxazole Allergy Intermediate 05/28/21 Yes trimethoprim Allergy Intermediate 05/28/21 Yes Physical Exam Physical Exam Constitutional: Well developed, appears older than stated age, mild distress and appears anxious on arrival but is non-toxic appearance. HENT: Normocephalic, atraumatic, bilateral external ears normal, oropharynx moist, no oral exudates, nose normal. Eyes: PERRLA, EOMI, conjunctiva normal, no discharge. Neck: Normal range of motion, no tenderness, supple, no stridor. Cardiovascular: Heart rate regular, sinus rhythm, no murmurs rubs or gallops Lungs & Thorax: Bilateral breath sounds clear to auscultation Abdomen: Bowel sounds normal, soft, no tenderness, no masses, no pulsatile masses. Nonsurgical abdomen, no peritoneal signs Skin: Warm, dry, no erythema, no rash. Back: No tenderness, no CVA tenderness. Extremities: No tenderness, no cyanosis, no clubbing, ROM intact, no edema. Neurologic: Alert and oriented X 3, grossly normal motor & sensory function, no focal deficits noted. Psychologic: Odd affect, anxious mood. Jittery with pressured speech at times Current Patient Data Vital Signs Vital Signs Date Time Temp Pulse Resp B/P (MAP) Pulse Ox O2 Delivery O2 Flow Rate FiO2 10/14/21 03:28 97.5 104 20 154/82 (106) 99 Room Air Lab Results Laboratory Tests Test 10/14/21 03:27 POC Urine HCG, Qualitative hcg negative (Negative) EKG EKG EKG ordered and interpreted by myself at 0 340 as sinus tachycardia at 106 bpm, unremarkable intervals, no axis deviation, no STEMI Repeat EKG ordered and interpreted by myself at 0419 hrs. is sinus rhythm at 82 bpm, unremarkable intervals, no axis deviation, no ischemic findings, no STEMI Radiology/Procedures Radiology/Procedures [] Heart Score C/O Chest Pain: Yes HEART Score for Chest Pain: HEART Score for Chest Pain Response (Comments) Value History Slighlty/Non-Suspicious 0 ECG Normal 0 Age >45 - < 65 1 Risk Factors 1 or 2 Risk Factors 1 Total 2 Risk Factors: Risk Factors: DM, Current or recent (<one month) smoker, HTN, HLP, family history of CAD, obesity. Risk Scores: Risk Factors: DM, Current or recent (<one month) smoker, HTN, HLP, family history of CAD, obesity. Course & Med Decision Making Course & Med Decision Making Airway patent, breathing unlabored, vitals obtained concerning for tachycardia and anxious individual History and physical exam obtained with subsequent EKGs nonconcerning for any emergent or surgical issues Patient reports symptoms improved with rest while in ER setting. She has not followed up with her primary care physician and/or facilities and grounds director and has been seeking care at our ER at increased frequency recently She openly discloses that she has not been taking her behavioral health medications which I feel is contributory to her increased anxiety and overall mental instability today in absence of any SI and/or HI I did offer repeat cardiac testing in light of recent work-up that was grossly unremarkable, patient deferred. She wants to know what is wrong. I discussed it is likely anxiety based but further outpatient follow-up with PCP and facilities and grounds director recommended Disclosed patient would benefit from further provocative cardiac testing in outpatient setting. Ultimately patient reports feeling fit for discharge. Strict return precautions discussed with good understanding, all questions and concerns addressed prior to ER departure Caleb Disclaimer Caleb Disclaimer This electronic medical record was generated, in whole or in part, using a voice recognition dictation system. Departure Departure: Impression: Primary Impression: Palpitations Additional Impression: Anxiety about health Disposition: HOME / SELF CARE / HOMELESS Condition: STABLE Referrals: VERNELL PHELPS APRN (PCP) Additional Instructions: You were seen for chest palpitations. Your vitals, physical exam and multiple electrocardiograms were nonconcerning for any emergent or surgical issues. Your recent ER evaluations were reviewed and did not show any acute abnormalities, but does not indicate that you do not have underlying cardiovascular disease. I discussed and recommended repeat testing today but this was deferred. You disclosed that you have been noncompliant with outpatient prescribed mental health medications which could be contributing to your presenting symptoms today. Please take all prescribed medications by her primary care physicians and other outpatient physicians as prescribed and contact them first thing this week to review ER visits and need for close outpatient follow-up. Further outpatient provocative cardiac testing is advised and should include echocardiogram and/or stress test in setting of your recent event monitor. You should return to the ED if you develop worsening chest pain, shortness of breath, fever, abnormal sweating, leg swelling, or any other new or concerning symptoms. Problem Qualifiers JAM EL DO Oct 14, 2021 04:19
[2021-10-14 04:29] VITALS: BP 130/88
--- NOTE | 2021-10-14 05:50 | EKG ---
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
== END 2021-10-14 04:29 | disposition home or self-care (01) ==
LOC: ER 03:04
DX: F41.9 Anxiety disorder, unspecified (principal); R07.89 Other chest pain; R00.2 Palpitations; F31.9 Bipolar disorder, unspecified; E11.9 Type 2 diabetes mellitus without complications; F17.210 Nicotine dependence, cigarettes, uncomplicated; Z86.718 Personal history of other venous thrombosis and embolism; Z88.0 Allergy status to penicillin; Z88.5 Allergy status to narcotic agent; Z88.2 Allergy status to sulfonamides; Z88.1 Allergy status to other antibiotic agents; Z88.8 Allergy status to other drugs, medicaments and biological substances
CPT/HCPCS: 81025; 93005; 99283

== ENCOUNTER 2021-10-27 01:06 | Emergency (ER) | payer SELFPAY ==
[~2021-10-27] VITALS: Ht 160 cm; Wt 86.0 kg
--- NOTE | 2021-10-27 01:13 | PHYS DOC ---
Past History Past Medical History: Anxiety, Bipolar, Constipation, Diabetes, DVT, Other Past Medical History SVT Past Surgical History: Other Additional Past Surgical Histo: miko filter Smoking: Cigarettes Alcohol Use: None Drug Use: Amphetamine, Methamphetamine General Adult EDM: Chief Complaint: MULTIPLE COMPLAINTS HPI: HPI: ".. I had a fast heart rate...".. " I was just doing laundry.. but it got to going fast... and then I got anxious.. and then I got dizzy.. this has happen before..." Patient is a 51 year old female who presents with above hx and complaints of rapid heart rated. Patient seen on 120 and 123 for the same complaint. Patient come by ambulance. Patient states she was doing laundry at the onset of the rapid heart rate. Patient came very concerned about her increased heart rate. Patient states did seem to be dizzy during the high rates. On arrival patient is sinus rhythm at 104. Blood pressure 142/88 on my exam. Patient has no history of cardiac disorder. Has seen a will call order clerk outpatient. 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 Patient is on Eliquis 2.5 twice a day. Patient states she has been compliant with this medication. Patient does continue to smoke. Patient has history of methamphetamine use. Patient does have a history of panic attacks and anxiety. Pt. normally follows with Dr. Vela att [facility] Review of Systems: Review of Systems: Constitutional: Denies fever or chills Eyes: Denies change in visual acuity HENT: Denies nasal congestion or sore throat Respiratory: Denies cough or shortness of breath Cardiovascular: Complaints of Tachycardia GI: Denies abdominal pain, nausea, vomiting, bloody stools or diarrhea : Denies dysuria Musculoskeletal: Denies back pain or joint pain Integument: Denies rash Neurologic: Denies headache, focal weakness or sensory changes Endocrine: Denies polyuria or polydipsia Lymphatic: Denies swollen glands Psychiatric: Denies depression or anxiety Family History: Family History: Noncontributory to presentation Current Medications: Current Meds: See nursing for home meds Allergies: Allergies: Allergies Coded Allergies Type Severity Reaction Last Updated Verified Penicillins Allergy Severe anaphylaxis 05/28/21 Yes morphine Allergy Severe anaphylaxis 05/28/21 Yes carbamazepine Allergy Intermediate 05/28/21 Yes sulfamethoxazole Allergy Intermediate 05/28/21 Yes trimethoprim Allergy Intermediate 05/28/21 Yes Physical Exam: PE: Constitutional: acute emotional distress, non-toxic appearance. [] HENT: Normocephalic, atraumatic, bilateral external ears normal, oropharynx moist, no oral exudates, nose normal. [] Eyes: PERRLA, EOMI, conjunctiva normal, no discharge. Glasses Neck: Normal range of motion, no tenderness, supple, no stridor. [] Cardiovascular: Tachycardia heart rate regular rhythm, no murmur [] Lungs & Thorax: Bilateral breath sounds equal apex with scattered wheezes auscultation [] Abdomen: Bowel sounds normal, soft, no tenderness, no masses, no pulsatile masses. Surgery scars. Skin: Warm, dry, no erythema, no rash. [] Back: No tenderness, no CVA tenderness. [] Extremities: No tenderness, no cyanosis, no clubbing, ROM intact, no edema. [No cording appreciated in legs Neurologic: Alert and oriented X 3, normal motor function, normal sensory function, no focal deficits noted. [] Psychologic: Affect very very anxious individual, judgement normal, mood normal. [] EKG: EKG: My interpretation EKG shows a sinus rhythm at 90 bpm. There is some nonspecific contour changes inferior leads. But no significant interval change from prior EKG. Time of EKG is 0403 hrs. Radiology/Procedures: Radiology/Procedures: My interpretation of chest x-ray shows normal cardio pulmonary silhouette. Lungs are relatively clear. Small Rt. basilar atelectasis, scar or infiltrated. No pneumothorax. No pleural effusions appreciated. No acute bony abnormalities. No acute interval change from chest x-ray of 10/19/2021. Formal report pending at 330 hours [] IMAGING REPORT Signed PATIENT: CHRIS SWANSON ACCOUNT: [id number] : 1970 LOCATION: ER AGE: 51 SEX: F EXAM STATUS: REG ER ORD. PHYSICIAN: MC GUO MD REASON: cp, tachy PROCEDURE: PORTABLE CHEST 1V EXAM: CHEST ONE VIEW. HISTORY: Chest pain, tachycardia. COMPARISON: 10/11/2021. FINDINGS: A frontal view of the chest is obtained. There is a mild airspace infiltrate in the right base. There is no pneumothorax or pleural effusion. The heart is not enlarged. IMPRESSION: 1. Mild right basilar infiltrate versus scarring. Electronically signed by: Rupert Gracia MD (10/27/2021 3:39 AM) [facility] DICTATED AND SIGNED BY: MISTY GRACIA MD DATE: 10/27/21 0338 CC: MC GUO MD; VERNELL VELA APRN ~MTH0 0 Heart Score: C/O Chest Pain: Yes HEART Score for Chest Pain: HEART Score for Chest Pain Response (Comments) Value History Slighlty/Non-Suspicious 0 ECG Nonspecific Repolarizatio 1 Age >45 - < 65 1 Risk Factors 1 or 2 Risk Factors 1 Troponin < Normal Limit 0 Total 3 Risk Factors: Risk Factors: DM, Current or recent (<one month) smoker, HTN, HLP, family hi story of CAD, obesity. Risk Scores: Score 0 - 3: 2.5% MACE over next 6 weeks - Discharge Home Score 4 - 6: 20.3% MACE over next 6 weeks - Admit for Clinical Observation Score 7 - 10: 72.7% MACE over next 6 weeks - Early Invasive Strategies Course & Med Decision Making: Course & Med Decision Making Pertinent Labs and Imaging studies reviewed. (See chart for details) Pt. take meds as previously directed. Encourage to not smoke or use illicit drugs. Push fluids. Follow up with primary and review ED work up. Pt to push fruit juices and and high potassium foods. Note pt. refused to complete the second dosage of KCL IV. Demanded discharge. Impression: 1. SVT- Sinus Tach. 2. Tobacco use 3. Drug screen + positive for Methamphetamine 4. Hx. of Anxiety 5. Hypokalemia 2.9 [] Dragon Disclaimer: Dragon Disclaimer: This electronic medical record was generated, in whole or in part, using a voice recognition dictation system. Departure Departure: Referrals: VERNELL VELA APRN (PCP) Caleb Disclaimer This chart was dictated in whole or in part using Voice Recognition software in a busy, high-work load, and often noisy Emergency Department environment. It may contain unintended and wholly unrecognized errors or omissions. MC GUO MD Oct 27, 2021 01:13
[2021-10-27] MEDS ORDERED: ASPIRIN CHEWABLE 81 MG TABLET. PO ONE (01:15)
[2021-10-27] MEDS ORDERED: IV RINGERS SOLUTION,LACTATED 1,000 ML IV SCH (01:15)
[2021-10-27] MEDS ORDERED: LABETALOL 20 MG/4 ML DISP.SYRIN. IVP ONE (01:30)
[2021-10-27 01:56] LABS: BASO # 0.1 x10^3/uL (0.0-0.2); BASO % 1 % (0-3); EOS % 0 % (0-3); HEMATOCRIT 42.5 % (36.0-47.0); HEMOGLOBIN 14.5 g/dL (12.0-15.5); LYMPH # 1.5 x10^3/uL (1.0-4.8); LYMPH % 24 % (24-48); MEAN CORPUSCULAR HEMOGLOBIN 28 pg (25-35); MEAN CORPUSCULAR HGB CONC 34 g/dL (31-37); MEAN CORPUSCULAR VOLUME 82 fL (79-100); MONO # 0.4 x10^3/uL (0.0-1.1); MONO % 6 % (0-9); NEUT # 4.4 x10^3uL (1.8-7.7); NEUT % 69 % (31-73); PLATELET COUNT 270 x10^3/uL (140-400); RED BLOOD COUNT 5.15 x10^6/uL (3.50-5.40); RED CELL DISTRIBUTION WIDTH 13.9 % (11.5-14.5); WHITE BLOOD COUNT 6.3 x10^3/uL (4.0-11.0)
[2021-10-27 02:18] LABS: ALBUMIN 3.9 g/dL (3.4-5.0); CALCIUM 8.9 mg/dL (8.5-10.1); CREATININE 0.6 mg/dL (0.6-1.0); DIRECT BILIRUBIN 0.2 mg/dL (0.0-0.2); GFR 106.3; MAGNESIUM 1.9 mg/dL (1.8-2.4); TOTAL PROTEIN 7.2 g/dL (6.4-8.2)
[2021-10-27 02:23] LABS: POTASSIUM 2.9 mmol/L (3.5-5.1)
[2021-10-27] MEDS ORDERED: MAGNESIUM HYDROXIDE 2,400 MG/30 ML ORAL.SUSP. PO ONE (02:30)
[2021-10-27] MEDS ORDERED: POTASSIUM CHLORIDE 20 MEQ TABLET.ER. PO ONE (02:30)
[2021-10-27] MEDS ORDERED: IV RINGERS SOLUTION,LACTATED 1,000 ML IV ONE (02:30)
[2021-10-27 02:54] LABS: BARBITURATES NEG (NEG); BENZODIAZEPINES NEG (NEG); CANNABINOIDS NEG (NEG); COCAINE NEG (NEG); METHADONE NEG (NEG); OPIATES NEG (NEG); PHENCYCLIDINE NEG (NEG)
[2021-10-27] MEDS: POTASSIUM CHLORIDE 20MEQ 100 ML IV SCH ×2 (02:55→05:04)
[2021-10-27 02:57] LABS: BILIRUBIN,URINE NEG (NEG); CLARITY,URINE HAZY; COLOR,URINE YELLOW; GLUCOSE,URINE NEG (NEG); NITRITE,URINE NEG (NEG); RBC,URINE OCC /HPF (0-2); SQUAMOUS EPITHELIAL CELL,UR MOD /LPF; UROBILINOGEN,URINE 0.2 mg/dL (0.2 mg/dL)
[2021-10-27 02:58] LABS: BACTERIA,URINE FEW /HPF (0-FEW); WBC,URINE OCC /HPF (0-4)
[2021-10-27 03:00] LABS: AMPHETAMINE/METHAMPHETAMINE POS (NEG)
[2021-10-27 03:02] LABS: INFLUENZA A PATIENT NEGATIVE (NEGATIVE); INFLUENZA B PATIENT NEGATIVE (NEGATIVE)
--- NOTE | 2021-10-27 03:41 | RAD ---
EXAM: CHEST ONE VIEW. HISTORY: Chest pain, tachycardia. COMPARISON: 10/11/2021. FINDINGS: A frontal view of the chest is obtained. There is a mild airspace infiltrate in the right base. There is no pneumothorax or pleural effusion. The heart is not enlarged. IMPRESSION: 1. Mild right basilar infiltrate versus scarring. Electronically signed by: Rupert Gracia MD (10/27/2021 3:39 AM) [facility]
--- NOTE | 2021-10-27 03:47 | EKG ---
[address] [address] Test Date: 2021-10-27 Test Time: 01:11:56 Pat Name: CHRIS SWANSON Department: Room: Gender: F Senior Contract Specialist: : 1970 Requested By: MC GUO Order Number: [id number] Reading MD: Handy Treviño Measurements Intervals [place] Rate: 90 P: -90 [place]: 124 QRS: 21 QRSD: 94 T: -62 QT: 330 QTc: 407 Interpretive Statements SINUS RHYTHM NON SPECIFIC ST-T WAVE CHANGES Electronically Signed On 10-29-2021 12:07:43 CHANNEL SALES MANAGER by Handy Treviño
--- NOTE | 2021-10-27 04:12 | EKG ---
[address] [address] Test Date: 2021-10-27 Test Time: 04:03:59 Pat Name: CHRIS SWANSON Department: Room: Gender: F Manager Machine: FLORENTIN : 1970 Requested By: MC GUO Order Number: [id number] Reading MD: Handy Treviño Measurements Intervals [place] Rate: 81 P: 74 [place]: 144 QRS: 18 QRSD: 88 T: -1 QT: 404 QTc: 475 Interpretive Statements SINUS RHYTHM NON SPECIFIC ST CHANGES QRS(T) CONTOUR ABNORMALITY CONSISTENT WITH POSSIBLE OLD INFERIOR INFARCT Electronically Signed On 10-29-2021 12:06:05 WAREHOUSE RECEIVING CLERK by Hadny Treviño
[2021-10-27 06:30] VITALS: BP 132/72
== END 2021-10-27 06:35 | disposition home or self-care (01) ==
LOC: ER 01:06
DX: I47.1 Supraventricular tachycardia (principal); E87.6 Hypokalemia; F15.10 Other stimulant abuse, uncomplicated; F41.9 Anxiety disorder, unspecified; F17.210 Nicotine dependence, cigarettes, uncomplicated; F31.9 Bipolar disorder, unspecified; E11.9 Type 2 diabetes mellitus without complications; Z20.822 Contact with and (suspected) exposure to COVID-19; Z86.718 Personal history of other venous thrombosis and embolism; Z88.0 Allergy status to penicillin; Z88.5 Allergy status to narcotic agent; Z88.2 Allergy status to sulfonamides; Z88.1 Allergy status to other antibiotic agents; Z88.8 Allergy status to other drugs, medicaments and biological substances
CPT/HCPCS: 36415; 71045; 80048; 80076; 80307; 81001; 82550; 83690; 83735; 83880; 84443; 84484; 85025; 85379; 85610; 85730; 87428; 93005; 96361; 96365; 96366; 99285; J3480; J3490; J7120

== ENCOUNTER 2021-11-09 11:22 | Emergency (ER) | payer SELFPAY ==
[~2021-11-09] VITALS: Ht 160 cm; Wt 87.1 kg
[2021-11-09 12:26] VITALS: BP 151/67
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
[2021-11-09 14:01] LABS: BASO # 0.1 x10^3/uL (0.0-0.2); BASO % 1 % (0-3); EOS % 1 % (0-3); HEMATOCRIT 41.2 % (36.0-47.0); HEMOGLOBIN 13.4 g/dL (12.0-15.5); LYMPH # 2.1 x10^3/uL (1.0-4.8); LYMPH % 28 % (24-48); MEAN CORPUSCULAR HEMOGLOBIN 28 pg (25-35); MEAN CORPUSCULAR HGB CONC 33 g/dL (31-37); MEAN CORPUSCULAR VOLUME 87 fL (79-100); MONO # 0.4 x10^3/uL (0.0-1.1); MONO % 6 % (0-9); NEUT # 4.9 x10^3uL (1.8-7.7); NEUT % 66 % (31-73); PLATELET COUNT 282 x10^3/uL (140-400); RED BLOOD COUNT 4.76 x10^6/uL (3.50-5.40); RED CELL DISTRIBUTION WIDTH 14.2 % (11.5-14.5); WHITE BLOOD COUNT 7.5 x10^3/uL (4.0-11.0)
[2021-11-09 14:07] LABS: CALCIUM 9.3 mg/dL (8.5-10.1); CREATININE 0.6 mg/dL (0.6-1.0); GFR 106.3; POTASSIUM 3.4 mmol/L (3.5-5.1)
[2021-11-09] MEDS ORDERED: POTASSIUM CHLORIDE 20 MEQ TABLET.ER. PO ONE (15:30)
[2021-11-09] MEDS ORDERED: CLIN150C16 PO (15:33)
== END 2021-11-09 15:52 | disposition home or self-care (01) ==
LOC: ER 11:27
DX: Z00.8 Encounter for other general examination (principal); S30.861D Insect bite (nonvenomous) of abdominal wall, subsequent encounter; S50.862D Insect bite (nonvenomous) of left forearm, subsequent encounter; F22 Delusional disorders; F41.9 Anxiety disorder, unspecified; F31.9 Bipolar disorder, unspecified; E11.9 Type 2 diabetes mellitus without complications; F17.210 Nicotine dependence, cigarettes, uncomplicated; F15.10 Other stimulant abuse, uncomplicated; Z86.718 Personal history of other venous thrombosis and embolism; Z88.0 Allergy status to penicillin; Z88.2 Allergy status to sulfonamides; Z88.1 Allergy status to other antibiotic agents; Z88.5 Allergy status to narcotic agent; Z88.8 Allergy status to other drugs, medicaments and biological substances; W57.XXXD Bitten or stung by nonvenomous insect and other nonvenomous arthropods, subsequent encounter
CPT/HCPCS: 36415; 80048; 85025; 99283; G0480

== ENCOUNTER 2021-11-23 08:29 | Emergency (ER) | payer SELFPAY ==
[~2021-11-23] VITALS: Ht 160 cm; Wt 84.5 kg
[~2021-11-23 08:29] MED LIST changes: +CLIN150C16 PO
[2021-11-23 08:59] VITALS: BP 137/71
[2021-11-23] MEDS ORDERED: IV NORMAL SALINE 1,000ML 1,000 ML IV ONE (09:30)
--- NOTE | 2021-11-23 09:54 | PHYS DOC ---
Past History Past Medical History: Anxiety, Bipolar, Constipation, Diabetes, DVT, Other Additional Past Medical Histor: Factor Five; pulm emboli; anaphospholiptic syndrome; neuropathy Past Surgical History: Other Additional Past Surgical Histo: miko filter Smoking: Cigarettes Alcohol Use: None Drug Use: Amphetamine, Methamphetamine General Adult EDM: Chief Complaint: CONSTIPATION HPI: HPI: 51-year-old female presents with constipation. Patient states she has not had a bowel movement in 3 weeks. She has not been eating much due to decreased appetite some. She has been drinking lots of water. She states she has tried Dulcolax, enema, and other [id number] medications to generate a stool. She had generalized abdominal discomfort which is a fullness sensation. She denies fever or chills. Review of Systems: Review of Systems: Constitutional: Denies fever or chills Eyes: Denies change in visual acuity HENT: Denies nasal congestion or sore throat Respiratory: Denies cough or shortness of breath Cardiovascular: Denies chest pain or edema GI: Generalized abdominal pain, constipation : Denies dysuria Musculoskeletal: Denies back pain or joint pain Integument: Denies rash Neurologic: Denies headache, focal weakness or sensory changes Endocrine: Denies polyuria or polydipsia Lymphatic: Denies swollen glands Psychiatric: Denies depression or anxiety Current Medications: Current Meds: Current Medications Medications (Trade) Dose Ordered Sig/Chip Start Time Stop Time Status Last Admin Dose Admin Sodium Chloride 1,000 ml @ 1,000 mls/hr 1X ONCE 11/23/21 09:30 11/23/21 10:29 Allergies: Allergies: Allergies Coded Allergies Type Severity Reaction Last Updated Verified Penicillins Allergy Severe anaphylaxis 05/28/21 Yes morphine Allergy Severe anaphylaxis 05/28/21 Yes carbamazepine Allergy Intermediate 05/28/21 Yes sulfamethoxazole Allergy Intermediate 05/28/21 Yes trimethoprim Allergy Intermediate 05/28/21 Yes Physical Exam: PE: Constitutional: Well developed, well nourished, obese, no acute distress, non- toxic appearance. [] HENT: Normocephalic, atraumatic, bilateral external ears normal, oropharynx moist, no oral exudates, nose normal. [] Eyes: PERRLA, EOMI, conjunctiva normal, no discharge. [] Neck: Normal range of motion, no tenderness, supple, no stridor. [] Cardiovascular: Heart rate regular rhythm, no murmur [] Lungs & Thorax: Bilateral breath sounds clear to auscultation [] Abdomen: Bowel sounds normal, soft, no tenderness, no masses, no pulsatile masses. [] Skin: Warm, dry, no erythema, no rash. [] Back: No tenderness, no CVA tenderness. [] Extremities: No tenderness, no cyanosis, no clubbing, ROM intact, no edema. [] Neurologic: Alert and oriented X 3, normal motor function, normal sensory function, no focal deficits noted. [] Psychologic: Affect normal, judgement normal, mood normal. [] Current Patient Data: Vital Signs: Vital Signs Date Time Temp Pulse Resp B/P (MAP) Pulse Ox O2 Delivery O2 Flow Rate FiO2 11/23/21 08:58 96 16 137/71 (93) 97 Room Air EKG: EKG: [] Radiology/Procedures: Radiology/Procedures: [] Impressions: Supine abdomen. HISTORY: Constipation Supine view was taken of the abdomen. Lung bases are clear. The patient's had a cholecystectomy. There is moderate stool in the colon. There is not a fecal impaction at the rectum. Small bowel pattern is unremarkable. There are no abnormal calcifications. IMPRESSION: 1. Moderate stool in the colon. Electronically signed by: Maged Forrest MD (11/23/2021 10:12 AM) [facility] DICTATED AND SIGNED BY: MAGED FORREST MD DATE: 11/23/21 1011 CC: MARQUITA CATHERINE DO; VERNELL PHELPS BRANCH CONTROLLER ~MTH0 0 Heart Score: C/O Chest Pain: N/A Risk Factors: Risk Factors: DM, Current or recent (<one month) smoker, HTN, HLP, family hist ory of CAD, obesity. Risk Scores: Score 0 - 3: 2.5% MACE over next 6 weeks - Discharge Home Score 4 - 6: 20.3% MACE over next 6 weeks - Admit for Clinical Observation Score 7 - 10: 72.7% MACE over next 6 weeks - Early Invasive Strategies Course & Med Decision Making: Course & Med Decision Making Pertinent Labs and Imaging studies reviewed. (See chart for details) I am unable to personally review the patient's KUB due to some sort of computer glitch. The official read shows moderate stool burden. I will give her magnesium citrate in the emergency room. She also has a potassium of 2.8. I will give her 10-20 mEq IV and 40 mEq p.o. She is also given a liter normal saline. The patient refused the 10 mEq of potassium IV. She did agree to take a second oral potassium. The patient has refused to take magnesium citrate in the emergency room because she does not want to poop in our bathroom. We will let the patient take the mag citrate home. She is stable for discharge at this time. [] Dragon Disclaimer: Dragon Disclaimer: This electronic medical record was generated, in whole or in part, using a voice recognition dictation system. Departure Departure: Impression: Primary Impression: Constipation Additional Impression: Hypokalemia Disposition: 01 HOME / SELF CARE / HOMELESS Condition: STABLE Referrals: VERNELL PHELPS APRN (PCP) Patient Instructions: Constipation, Adult, [id number] MARQUITA CATHERINE DO Nov 23, 2021 09:54
[2021-11-23 10:06] LABS: BASO % 1 % (0-3); EOS % 1 % (0-3); HEMATOCRIT 38.7 % (36.0-47.0); HEMOGLOBIN 12.8 g/dL (12.0-15.5); LYMPH # 1.4 x10^3/uL (1.0-4.8); LYMPH % 24 % (24-48); MEAN CORPUSCULAR HEMOGLOBIN 28 pg (25-35); MEAN CORPUSCULAR HGB CONC 33 g/dL (31-37); MEAN CORPUSCULAR VOLUME 84 fL (79-100); MONO # 0.3 x10^3/uL (0.0-1.1); MONO % 4 % (0-9); NEUT # 4.1 x10^3uL (1.8-7.7); NEUT % 71 % (31-73); PLATELET COUNT 235 x10^3/uL (140-400); RED BLOOD COUNT 4.58 x10^6/uL (3.50-5.40); RED CELL DISTRIBUTION WIDTH 14.3 % (11.5-14.5); WHITE BLOOD COUNT 5.9 x10^3/uL (4.0-11.0)
--- NOTE | 2021-11-23 10:14 | RAD ---
Supine abdomen. HISTORY: Constipation Supine view was taken of the abdomen. Lung bases are clear. The patient's had a cholecystectomy. Ther e is moderate stool in the colon. There is not a fecal impaction at the rectum. Small bowel pattern i s unremarkable. There are no abnormal calcifications. IMPRESSION: 1. Moderate stool in the colon. Electronically signed by: Maged Mcdonough MD (11/23/2021 10:12 AM) [facility]
[2021-11-23 10:26] LABS: ALBUMIN 3.2 g/dL (3.4-5.0); ALBUMIN/GLOBULIN RATIO 0.9 (1.0-1.7); CALCIUM 8.5 mg/dL (8.5-10.1); CREATININE 0.7 mg/dL (0.6-1.0); GFR 88.9; TOTAL BILIRUBIN 0.4 mg/dL (0.2-1.0); TOTAL PROTEIN 6.7 g/dL (6.4-8.2)
[2021-11-23 10:34] LABS: POTASSIUM 2.8 mmol/L (3.5-5.1)
[2021-11-23] MEDS ORDERED: MAGNESIUM CITRATE 296 ML SOLUTION. PO ONE (11:00)
[2021-11-23] MEDS ORDERED: POTASSIUM CHLORIDE 20 MEQ TABLET.ER. PO ONE ×2 (11:00→12:15)
[2021-11-23] MEDS: POTASSIUM CHLORIDE 10MEQ 100 ML IV SCH ×2 (11:31→11:45)
== END 2021-11-23 13:25 | disposition home or self-care (01) ==
LOC: ER 08:29
DX: K59.00 Constipation, unspecified (principal); E87.6 Hypokalemia; F41.9 Anxiety disorder, unspecified; F31.9 Bipolar disorder, unspecified; E11.9 Type 2 diabetes mellitus without complications; F17.210 Nicotine dependence, cigarettes, uncomplicated; Z86.718 Personal history of other venous thrombosis and embolism; Z88.0 Allergy status to penicillin; Z88.5 Allergy status to narcotic agent; Z88.2 Allergy status to sulfonamides; Z88.1 Allergy status to other antibiotic agents
CPT/HCPCS: 36415; 74018; 80053; 85025; 99284; J3480; J7030

== ENCOUNTER 2021-12-13 10:30 | Emergency (ER) | payer SELFPAY ==
[~2021-12-13] VITALS: Ht 160 cm; Wt 84.5 kg
[2021-12-13 10:39] VITALS: BP 134/69
[2021-12-13] MEDS ORDERED: KETOROLAC 60 MG/2 ML VIAL. IM ONE (10:45)
[2021-12-13] MEDS ORDERED: HYDROcodone/APAP 5/325MG 1 TAB TABLET PO ONE (10:45)
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
[2021-12-13] MEDS ORDERED: CIPR250T30 PO (11:57)
[2021-12-13] MEDS ORDERED: PHEN100T82 PO (11:57)
[2021-12-13] MEDS ORDERED: IBUP800T19 PO (11:57)
[2021-12-13] MEDS ORDERED: HYDR-2155 PO ×2 (13:10→13:21)
== END 2021-12-13 12:32 | disposition home or self-care (01) ==
LOC: ER 10:30
DX: S22.31XA Fracture of one rib, right side, initial encounter for closed fracture (principal); F41.9 Anxiety disorder, unspecified; F31.9 Bipolar disorder, unspecified; F17.210 Nicotine dependence, cigarettes, uncomplicated; E11.40 Type 2 diabetes mellitus with diabetic neuropathy, unspecified; Z86.718 Personal history of other venous thrombosis and embolism; Z88.0 Allergy status to penicillin; Z88.5 Allergy status to narcotic agent; Z88.1 Allergy status to other antibiotic agents; Y08.89XA Assault by other specified means, initial encounter; Y93.89 Activity, other specified; Y92.89 Other specified places as the place of occurrence of the external cause; Y99.8 Other external cause status
CPT/HCPCS: 71101; 96372; 99283; J1885

== ENCOUNTER 2022-02-11 21:18 | Emergency (ER) | payer SELFPAY ==
[~2022-02-11] VITALS: Ht 160 cm; Wt 84.5 kg
[~2022-02-11 21:18] MED LIST changes: +CIPR250T30 PO; +HYDR-2155 PO; +IBUP800T19 PO; +PHEN100T82 PO
[2022-02-11 21:40] VITALS: BP 123/69
[2022-02-11] MEDS ORDERED: CLIN-95 PO (22:22)
[2022-02-11] MEDS ORDERED: HYDR-2155 PO (22:22)
--- NOTE | 2022-02-11 22:24 | PHYS DOC ---
Past History Past Medical History: Anxiety, Bipolar, Constipation, Diabetes, DVT, Other Additional Past Medical Histor: Factor Five; pulm emboli; anaphospholiptic syndrome; neuropathy Past Surgical History: Other Additional Past Surgical Histo: miko filter Smoking: Cigarettes Alcohol Use: None Drug Use: Amphetamine, Methamphetamine General Adult EDM: Chief Complaint: HAND PROBLEM HPI: HPI: Patient is a 51-year-old female who presents with right, middle finger pain, swelling, redness. Patient states he started feeling sore last night and this morning when she woke up it was swollen and red. Denies injury. Range of motion is decreased and middle finger due to swelling and pain. Denies taking anything for discomfort. History of anxiety, depression, bipolar disorder, diabetes. Review of Systems: Review of Systems: ROS At least 10 ROS systems have been reviewed and are negative except as documented in the HPI. General: Negative except as outlined in HPI above. Skin: Negative except as outlined in HPI above. HEENT: Negative except as outlined in HPI above. Neck: Negative except as outlined in HPI above. Respiratory: Negative except as outlined in HPI above.. Cardiovascular: Negative except as outlined in HPI above. Abdomen: Negative except as outlined in HPI above. : Negative except as outlined in HPI above. Back/MSK: Negative except as outlined in HPI above. Neuro: Negative except as outlined in HPI above. Psych: Negative except as outlined in HPI above. Allergies: Allergies: Allergies Coded Allergies Type Severity Reaction Last Updated Verified Penicillins Allergy Severe anaphylaxis 05/28/21 Yes morphine Allergy Severe anaphylaxis 05/28/21 Yes carbamazepine Allergy Intermediate 05/28/21 Yes sulfamethoxazole Allergy Intermediate 05/28/21 Yes trimethoprim Allergy Intermediate 05/28/21 Yes Physical Exam: PE: Constitutional: Well developed, well nourished, no acute distress, non-toxic appearance. [] HENT: Normocephalic, atraumatic, bilateral external ears normal, oropharynx moist, no oral exudates, nose normal. [] Eyes: PERRLA, EOMI, conjunctiva normal, no discharge. [] Neck: Normal range of motion, no tenderness, supple, no stridor. [] Cardiovascular:Heart rate regular rhythm, no murmur [] Lungs & Thorax: Bilateral breath sounds clear to auscultation [] Abdomen: Bowel sounds normal, soft, no tenderness, no masses, no pulsatile masses. [] Skin: Right, middle finger, redness, swelling, pain. Back: No tenderness, no CVA tenderness. [] Extremities: Right middle finger tenderness,range of motion decreased on right, middle finger due to swelling Neurologic: Alert and oriented X 3, normal motor function, normal sensory function, no focal deficits noted. [] Psychologic: Affect normal, judgement normal, mood normal. [] EKG: EKG: [] Radiology/Procedures: Radiology/Procedures: [] Heart Score: C/O Chest Pain: No Risk Factors: Risk Factors: DM, Current or recent (<one month) smoker, HTN, HLP, family history of CAD, obesity. Risk Scores: Score 0 - 3: 2.5% MACE over next 6 weeks - Discharge Home Score 4 - 6: 20.3% MACE over next 6 weeks - Admit for Clinical Observation Score 7 - 10: 72.7% MACE over next 6 weeks - Early Invasive Strategies Course & Med Decision Making: Course & Med Decision Making Pertinent Labs and Imaging studies reviewed. (See chart for details) [] 51-year-old male presents with right, middle finger pain and swelling since t his morning. No known injury. Patient sent home with cephalexin for treatment of cellulitis. Discussed return precautions with patient. Advised patient to take ibuprofen for pain. Patient's pain was treated in the emergency room with hydrocodone. Patient is also being sent home with a few hydrocodone's to treat pain. If symptoms do not improve in 2 to 3 days follow-up with PCP or return to the emergency room for further treatment. Caleb Disclaimer: Caleb Disclaimer: This electronic medical record was generated, in whole or in part, using a voice recognition dictation system. Departure Departure: Impression: Primary Impression: Cellulitis of finger Qualified Codes: L03.011 - Cellulitis of right finger Disposition: 01 HOME / SELF CARE / HOMELESS Condition: STABLE Referrals: VERNELL PHELPS APRN (PCP) Patient Instructions: Cellulitis, [id number] Additional Instructions: You are seen the emergency room for cellulitis of your right, middle finger. I am starting on an antibiotic. You can take ibuprofen along with hydrocodone for pain. You were given 1 dose of antibiotic along with hydrocodone while in the ER. If symptoms or not improving in 2 to 3 days follow-up with your PCP. Return emergency room if you have worsening symptoms or concerns. EMERGENCY DEPARTMENT GENERAL DISCHARGE INSTRUCTIONS Thank you for coming to [facility] ([facility]) today and trusting us with you care. We trust that you had a positivie experience in our Emergency Department. If you wish to speak to the department management, you may call the director at [phone]. YOUR FOLLOW UP INSTRUCTIONS ARE FOLLOWS: 1. Do you have a private Doctor? If you do not have a private doctor, please ask for a resource list of physicians or clinics that may be able to assist you with fo llow up care. 2. The Emergency Physician has interpreted your x-rays. The X-Ray specialist will also review them. If there is a change in the findings, you will be notified in 48 hours when at all possible. 3. A lab test or culture has been done, your results will be reviewed and you will be notified if you need a change in treatment. ADDITIONAL INSTRUCTIONS AND INFORMATION: 1. Your care today has been supervised by a physician who is specially trained in emergency care. Many problems require more than one evaluation for a complete diagnosis and treatment. We recommend that you schedule your follow up appointment as recommended to ensure complete treatment of you illness or injury. If you are unable to obtain follow up care and continue to have a problem, or if your condition worsens, we recommend that you return to the ED. 2. We are not able to safely determine your condition over the phone nor are we able to give sound medical advice over the phone. For these safety reasons, if you call for medical advice we will ask you to come to the ED for further evaluation. 3. If you have any questions regarding these discharge instructions please call the ED at [phone]. SAFETY INFORMATION: In the interest of safety, wellness, and injury prevention; we encourage you to wear your sealbelt, if you smoke; quite smoking, and we encourage family to use a protecti ve helmet for bicycling and other sporting events that present an increased risk for head injury. IF YOUR SYMPTOMS WORSEN OR NEW SYMPTOMS DEVELOP, OR YOU HAVE CONCERNS ABOUT YOUR CONDITION; OR IF YOUR CONDITION WORSENS WHILE YOU ARE WAITING FOR YOUR FOLLOW UP APPOINTMENT; EITHER CONTACT YOUR PRIMARY CARE DOCTOR, THE PHYSICIAN WHOSE NAME AND NUMBER YOU WERE GIVEN, OR RETURN TO THE ED IMMEDIATELY. Scripts Hydrocodone Bit/Acetaminophen (HYDROCODONE-APAP 5-325 ) 1 Each Tablet 1-2 TAB PO PRN Q6HRS PRN for PAIN for 3 Days, #12 TAB 0 Refills Prov: JESSICA MELGAR APRN 02/11/22 Clindamycin Hcl (CLINDAMYCIN HCL) 300 Mg Capsule 1 CAP PO TID for cellulitis for 7 Days, #21 CAP Prov: JESSICA MELGAR APRN 02/11/22 JESSICA MELGAR APRN February 11, 2022 22:24
[2022-02-11] MEDS ORDERED: HYDROcodone/APAP 5/325MG 1 TAB TABLET PO ONE (22:30)
[2022-02-11] MEDS ORDERED: CLINDAMYCIN 900 MG/6 ML VIAL. IM ONE (22:30)
== END 2022-02-11 23:14 | disposition home or self-care (01) ==
LOC: ER 21:18
DX: L03.011 Cellulitis of right finger (principal); F41.9 Anxiety disorder, unspecified; F31.9 Bipolar disorder, unspecified; E11.9 Type 2 diabetes mellitus without complications; F17.210 Nicotine dependence, cigarettes, uncomplicated; Z86.718 Personal history of other venous thrombosis and embolism; Z86.711 Personal history of pulmonary embolism; Z88.0 Allergy status to penicillin; Z88.5 Allergy status to narcotic agent; Z88.2 Allergy status to sulfonamides; Z88.1 Allergy status to other antibiotic agents; Z88.8 Allergy status to other drugs, medicaments and biological substances
CPT/HCPCS: 96372; 99283; J3490

== ENCOUNTER 2022-02-12 18:31 | Emergency (ER) | payer SELFPAY ==
[~2022-02-12] VITALS: Ht 160 cm; Wt 80.0 kg
--- NOTE | 2022-02-12 19:41 | PHYS DOC ---
Past History Past Medical History: Anxiety, Bipolar, Constipation, Coagulopathy (Factor V Leiden deficiency), Diabetes, DVT, Other Additional Past Medical Histor: PE; anaphospholiptic syndrome; neuropathy Past Surgical History: Other Additional Past Surgical Histo: miko filter Smoking: Cigarettes Alcohol Use: None Drug Use: Amphetamine, Methamphetamine General Adult EDM: Chief Complaint: HAND PROBLEM HPI: HPI: Patient is a 51 year old female who returns to the emergency department with right digit 3 swelling and pain. Patient was evaluated yesterday and provided with prescriptions for p.o. clindamycin and hydrocodone. Patient states that she did pear picker the medication and took 1 clindamycin this morning. She states that she did not take any of the hydrocodone for pain because "there were only 12 pills, and I didn't want to run out." Patient denies any change in symptoms, fever, chills. Review of Systems: Review of Systems: ROS negative or noncontributory except as mentioned in HPI. Allergies: Allergies: Allergies Coded Allergies Type Severity Reaction Last Updated Verified Penicillins Allergy Severe anaphylaxis 05/28/21 Yes morphine Allergy Severe anaphylaxis 05/28/21 Yes carbamazepine Allergy Intermediate 05/28/21 Yes sulfamethoxazole Allergy Intermediate 05/28/21 Yes trimethoprim Allergy Intermediate 05/28/21 Yes Physical Exam: PE: Constitutional: Well developed, well nourished, disheveled, somnolent but arousable. HENT: Normocephalic, atraumatic, bilateral external ears normal, nose normal. Eyes: PERRL, EOMI, conjunctiva normal, no discharge. Neck: Normal range of motion, no stridor. Skin: Warm, dry, no rash. Extremities: Right digit three erythematous and swollen extending proximally past MCP joint with limited ROM secondary to swelling and pain. Extremities otherwise no tenderness, no cyanosis, no clubbing, ROM intact, no edema. Neurologic: Normal motor function, normal sensory function, no focal deficits noted, somnolent but arousable. Current Patient Data: Vital Signs: Vital Signs Date Time Temp Pulse Resp B/P (MAP) Pulse Ox O2 Delivery O2 Flow Rate FiO2 02/12/22 18:39 97.8 83 18 104/58 (73) 97 Room Air Radiology/Procedures: Radiology/Procedures: PROCEDURE: HAND RIGHT 3V EXAMINATION: Right hand radiographs. VIEWS: 3. COMPARISON: None. INDICATION:51 years, Female, right third digit pain and swelling. FINDINGS: No acute fracture, dislocation or subluxation. No bone erosion or periosteal re action. Soft tissue swelling about the dorsal hand and about the digit. IMPRESSION: No acute osseous findings. Electronically signed by: Stevie Paredes MD (02/12/2022 7:53 PM) [facility] Heart Score: C/O Chest Pain: No Course & Med Decision Making: Course & Med Decision Making Pertinent Labs and Imaging studies reviewed. (See chart for details) Is a 51-year-old female who was diagnosed with right middle finger cellulitis yesterday. Patient has taken 1 dose of her antibiotics that were prescribed. Patient complains today of pain, but no new symptoms or change from evaluation yesterday. Plain films were obtained to evaluate for any joint involvement of infection, which were negative. Patient is advised to return to home and take the medications that were prescribed to her, as they were prescribed. Return precautions were provided. Patient understands and is agreeable with discharge plan. Dragon Disclaimer: Dragon Disclaimer: This electronic medical record was generated, in whole or in part, using a voice recognition dictation system. Departure Departure: Impression: Primary Impression: Cellulitis of right middle finger Disposition: 01 HOME / SELF CARE / HOMELESS Condition: STABLE Referrals: VERNELL PHELPS APRN (PCP) Patient Instructions: Cellulitis, [id number] Additional Instructions: You are seen in the emergency department today for reevaluation of your right hand cellulitis. X-rays taken today do not reveal any erosion of the bones of your hand secondary to the infection. Please take your medications as they were prescribed to you yesterday. EMERGENCY DEPARTMENT GENERAL DISCHARGE INSTRUCTIONS Thank you for coming to [facility] (ED) today and trusting us with you care. We trust that you had a positive experience in our Emergency Department. If you wish to speak to the department management, you may call the director at [phone]. YOUR FOLLOW UP INSTRUCTIONS ARE FOLLOWS: 1. Follow up with your primary care doctor. If you do not have a primary doctor, please ask for a resource list of physicians or clinics that may be able to assist you with follow up care. 2. The emergency provider has interpreted your imaging studies, if any were ordered. The radiology radiator specialist also reviewed them. If there is a change in the findings, you will be notified in 48 hours when at all possible. 3. If a lab test or culture has been done, your results will be reviewed and you will be notified if you need a change in treatment. 4. Follow instructions verbalized to you and refer to the printouts if needed. ADDITIONAL INSTRUCTIONS AND INFORMATION: 1. Your care today has been supervised by a physician who is specially trained in emergency care. Many problems require more than one evaluation for a comple te diagnosis and treatment. We recommend that you schedule your follow up appointment as recommended to ensure complete treatment of you illness or injury. If you are unable to obtain follow up care and continue to have a problem, or if your condition worsens, we recommend that you return to the ED. 2. We are not able to safely determine your condition over the phone nor are we able to give sound medical advice over the phone. For these safety reasons, if you call for medical advice we will ask you to come to the ED for further evaluation. 3. If you have any questions regarding these discharge instructions please call the ED at [phone]. SAFETY INFORMATION: In the interest of safety, wellness, and injury prevention; we encourage you to wear your seat belt, if you smoke; quite smoking, and we encourage family to use a protective helmet for bicycling and other sporting events that present an increased risk for head injury. IF YOUR SYMPTOMS WORSEN OR NEW SYMPTOMS DEVELOP, OR YOU HAVE CONCERNS ABOUT YOUR CONDITION; OR IF YOUR CONDITION WORSENS WHILE YOU ARE WAITING FOR YOUR FOLLOW UP APPOINTMENT; EITHER CONTACT YOUR PRIMARY CARE DOCTOR, THE PHYSICIAN WHOSE NAME AND NUMBER YOU WERE GIVEN, OR RETURN TO THE ED IMMEDIATELY. JACE SNOW February 12, 2022 19:40
--- NOTE | 2022-02-12 19:56 | RAD ---
EXAMINATION: Right hand radiographs. VIEWS: 3. COMPARISON: None. INDICATION:51 years, Female, right third digit pain and swelling. FINDINGS: No acute fracture, dislocation or subluxation. No bone erosion or periosteal reaction. Soft tissue sw elling about the dorsal hand and about the digit. IMPRESSION: No acute osseous findings. Electronically signed by: Stevie Paredes MD (02/12/2022 7:53 PM) [facility]
[2022-02-12 20:30] VITALS: BP 127/80
== END 2022-02-12 20:33 | disposition home or self-care (01) ==
LOC: ER 18:31
DX: L03.011 Cellulitis of right finger (principal); F41.9 Anxiety disorder, unspecified; F32.9 Major depressive disorder, single episode, unspecified; E11.9 Type 2 diabetes mellitus without complications; F17.210 Nicotine dependence, cigarettes, uncomplicated; Z86.718 Personal history of other venous thrombosis and embolism; Z88.0 Allergy status to penicillin; Z88.5 Allergy status to narcotic agent; Z88.2 Allergy status to sulfonamides; Z88.1 Allergy status to other antibiotic agents; Z88.8 Allergy status to other drugs, medicaments and biological substances
CPT/HCPCS: 73130; 99283

== ENCOUNTER 2022-02-15 04:43 | Inpatient (IN) | payer SELFPAY ==
[~2022-02-15] VITALS: Ht 160 cm; Wt 77.0 kg
--- NOTE | 2022-02-15 04:49 | PHYS DOC ---
Past History Past Medical History: Anxiety, Bipolar, Constipation, Coagulopathy, Diabetes, DVT, Other Additional Past Medical Histor: PE; anaphospholiptic syndrome; neuropathy ([facility] GUO MD) Past Surgical History: Other Additional Past Surgical Histo: brody filter ([facility] GUO MD) Smoking: Cigarettes Alcohol Use: None Drug Use: Amphetamine, Methamphetamine ([facility] GUO MD) General Adult HPI: HPI: ".. My hand is more swollen today.. than it has ever been.. and pain is worse.." Patient is a 51 year old female who presents with above hx and complaints of Rt. hand cellulitis. This pt. 4 th visit to ED for hand cellulitis. Pt has been on Clindamycin oral with no significant improvement. Patient patient has presence of anxiety, bipolar disorder, constipation, factor Leiden deficiency, diabetes, DVTs, pulmonary embolism, antiphospholipid syndrome, neuropathy, polysubstance abuse, and recent hand cellulitis. Patient has had a Brody filter placement previously. Patient has been evaluated daily in the ER and was placed on clindamycin and hydrocodone. Patient is right-hand dominant. However because of swelling he is no longer able to close hand completely. ([facility] GUO MD) Review of Systems: Review of Systems: Constitutional: Denies fever or chills Eyes: Denies change in visual acuity HENT: Denies nasal congestion or sore throat Respiratory: Denies cough or shortness of breath Cardiovascular: Denies chest pain or edema GI: Denies abdominal pain, nausea, vomiting, bloody stools or diarrhea : Denies dysuria Musculoskeletal: Complains of right hand edema and pain Integument: Denies rash Neurologic: Denies headache, focal weakness or sensory changes Endocrine: Denies polyuria or polydipsia Lymphatic: Denies swollen glands Psychiatric: Denies depression or anxiety ([facility] GUO MD) Family History: Family History: Noncontributory to presentation ([facility] GUO MD) Current Medications: Current Meds: See nursing for home meds ([facility] GUO MD) Allergies: Allergies: Allergies Coded Allergies Type Severity Reaction Last Updated Verified Penicillins Allergy Severe anaphylaxis 05/28/21 Yes morphine Allergy Severe anaphylaxis 05/28/21 Yes carbamazepine Allergy Intermediate 05/28/21 Yes sulfamethoxazole Allergy Intermediate 05/28/21 Yes trimethoprim Allergy Intermediate 05/28/21 Yes ([facility] GUO MD) Physical Exam: PE: Constitutional: no acute distress, non-toxic appearance. [] HENT: Normocephalic, atraumatic, bilateral external ears normal, oropharynx moist, no oral exudates, nose normal. [] Eyes: PERRLA, EOMI, conjunctiva normal, no discharge. Glasses Neck: Normal range of motion, no tenderness, supple, no stridor. [] Cardiovascular: Tachycardia heart rate regular rhythm, no murmur [] Lungs & Thorax: Bilateral breath sounds equal apex with scattered wheezes auscultation [] Abdomen: Bowel sounds normal, soft, no tenderness, no masses, no pulsatile masses. Scar Skin: Warm, dry, no erythema, no rash. Right hand cellulitis Back: No tenderness, no CVA tenderness. [] Extremities: No tenderness, no cyanosis, no clubbing, ROM intact, no edema. [] Step findings in right hand as per HPI Neurologic: Alert and oriented X 3, moves all extremities, distal sensory, except findings in right hand., no focal deficits noted. [] Psychologic: Affect anxious judgement normal, mood normal. [] ([facility] GUO MD) EKG: EKG: My interpretation EKG shows a sinus rhythm at 88 bpm. No findings of acute morphology. Time of EKG is 535 [] ([facility] GUO MD) Radiology/Procedures: Radiology/Procedures: [] ([facility] GUO MD) Radiology/Procedures: [address] [address] IMAGING REPORT Signed PATIENT: CHRIS COTTRELL ACCOUNT: [id number] : 1970 LOCATION: ER AGE: 51 SEX: F EXAM STATUS: REG ER ORD. PHYSICIAN: KHANG DOYLE MD REASON: RT Hand swelling PROCEDURE: VENOUS UPPER EXTREMITY RIGHT US DPLX VENOUS EXTREMITY UPPER RT History: Reason: RT Hand swelling / Spl. Instructions: / History: Comparison: None. Procedure: Color flow Doppler, Doppler spectral analysis, and 2D images are obtained with and without compression in the jugular vein, subclavian vein, axi llary vein, brachial vein, radial vein, ulnar vein, and basilic and cephalic veins. Findings: There is normal color flow, augmentation, and compressibility of all visualized vein segments. No evidence of deep venous thrombus is present. IMPRESSION: 1. No evidence of right upper extremity deep venous thrombosis. Electronically signed by: Kevin Cottrell DO (02/15/2022 8:07 AM) [id number] DICTATED AND SIGNED BY: KEVIN COTTRELL DO DATE: 02/15/22806 CC: KHANG DOYLE MD; VERNELL PHELPS APRN ~ (KHANG DOYLE MD) Heart Score: C/O Chest Pain: No Risk Factors: Risk Factors: DM, Current or recent (<one month) smoker, HTN, HLP, family history of CAD, obesity. Risk Scores: Score 0 - 3: 2.5% MACE over next 6 weeks - Discharge Home Score 4 - 6: 20.3% MACE over next 6 weeks - Admit for Clinical Observation Score 7 - 10: 72.7% MACE over next 6 weeks - Early Invasive Strategies ([facility] GUO MD) C/O Chest Pain: No (KHANG DOYLE MD) Course & Med Decision Making: Course & Med Decision Making Pertinent Labs and Imaging studies reviewed. (See chart for details) Endorsed to Dr. Doyle at shift change. Impression: 1. Rt. hand Cellulitis 2. Hx factor V Leiden deficiency 3. History of anxiety 4. History of bipolar disorder 5 . History of chronic constipation 6. History diabetes 7 . History of DVT 8. History of polysubstance abuse- Meth. drug of choice [] ([facility] GUO MD) Course & Med Decision Making Will admit to Dr. Coombs for continued IV antibiotics due to failed outpatient treatment. (KHANG DOYLE MD) Dragon Disclaimer: Dragon Disclaimer: This electronic medical record was generated, in whole or in part, using a voice recognition dictation system. ([facility] GUO MD) Departure Departure: Impression: Primary Impression: Cellulitis of hand, right Disposition: ADMITTED INPATIENT Admitting Physician: Hever Coombs (KHANG DOYLE MD) Condition: STABLE Referrals: VERNELL PHELPS APRN (PCP) Dragon Disclaimer This chart was dictated in whole or in part using Voice Recognition software in a busy, high-work load, and often noisy Emergency Department environment. It may contain unintended and wholly unrecognized errors or omissions. ([facility] GUO MD) Dragon Disclaimer This chart was dictated in whole or in part using Voice Recognition software in a busy, high-work load, and often noisy Emergency Department environment. It may contain unintended and wholly unrecognized errors or omissions. ([facility] GUO MD) Dragon Disclaimer This chart was dictated in whole or in part using Voice Recognition software in a busy, high-work load, and often noisy Emergency Department environment. It may contain unintended and wholly unrecognized errors or omissions. (KHANG DOYLE MD) [facility] GUO MD February 15, 2022 04:49 KHANG DOYLE MD February 15, 2022 08:12
[2022-02-15] MEDS ORDERED: VANCOMYCIN 1 GM in IV DEXTROSE 5% 250 ML IV SCH (05:00)
[2022-02-15] MEDS ORDERED: IV RINGERS SOLUTION,LACTATED 1,000 ML IV SCH (05:00)
[2022-02-15] MEDS ORDERED: VANCOMYCIN PER PHARMACY MC PRN (05:15)
[2022-02-15] MEDS ORDERED: VANCOMYCIN 2 GM in IV DEXTROSE 5% 500 ML IV ONE (05:30)
--- NOTE | 2022-02-15 06:44 | RAD ---
3 view right hand: HISTORY: Soft tissue edema AP lateral oblique views The visualized osseous structures appear normal. There is no radiopaque foreign body. IMPRESSION: No acute bony abnormality. Electronically signed by: Joel Johnson III, MD (02/15/2022 6:42 AM) [facility]
[2022-02-15 07:05] LABS: BASO # 0.1 x10^3/uL (0.0-0.2); BASO % 1 % (0-3); EOS % 1 % (0-3); HEMATOCRIT 34.6 % (36.0-47.0); HEMOGLOBIN 11.3 g/dL (12.0-15.5); LYMPH # 1.8 x10^3/uL (1.0-4.8); LYMPH % 25 % (24-48); MEAN CORPUSCULAR HEMOGLOBIN 28 pg (25-35); MEAN CORPUSCULAR HGB CONC 33 g/dL (31-37); MEAN CORPUSCULAR VOLUME 85 fL (79-100); MONO # 0.4 x10^3/uL (0.0-1.1); MONO % 5 % (0-9); NEUT # 4.9 x10^3uL (1.8-7.7); NEUT % 68 % (31-73); PLATELET COUNT 228 x10^3/uL (140-400); RED BLOOD COUNT 4.07 x10^6/uL (3.50-5.40); RED CELL DISTRIBUTION WIDTH 13.9 % (11.5-14.5); WHITE BLOOD COUNT 7.1 x10^3/uL (4.0-11.0)
[2022-02-15 07:13] LABS: CALCIUM 8.5 mg/dL (8.5-10.1); CREATININE 0.6 mg/dL (0.6-1.0); GFR 106.3
[2022-02-15] MEDS: CLINDAMYCIN 600MG PREMIX 50 ML IV SCH ×2 (07:16→14:59)
[2022-02-15 07:29] LABS: BARBITURATES NEG (NEG); BENZODIAZEPINES NEG (NEG); CANNABINOIDS NEG (NEG); COCAINE NEG (NEG); METHADONE NEG (NEG); OPIATES POS (NEG); PHENCYCLIDINE NEG (NEG)
[2022-02-15 07:33] LABS: AMPHETAMINE/METHAMPHETAMINE POS (NEG)
[2022-02-15 07:42] LABS: BACTERIA,URINE FEW /HPF (0-FEW); CLARITY,URINE CLEAR; COLOR,URINE YELLOW; GLUCOSE,URINE NEG (NEG); NITRITE,URINE NEG (NEG); RBC,URINE 0 /HPF (0-2); SQUAMOUS EPITHELIAL CELL,UR FEW /LPF; UROBILINOGEN,URINE 0.2 mg/dL (0.2 mg/dL); WBC,URINE 20-40 /HPF (0-4)
--- NOTE | 2022-02-15 08:10 | RAD ---
US DPLX VENOUS EXTREMITY UPPER RT History: Reason: RT Hand swelling / Spl. Instructions: / History: Comparison: None. Procedure: Color flow Doppler, Doppler spectral analysis, and 2D images are obtained with and without compression in the jugular vein, subclavian vein, axillary vein, brachial vein, radial vein, ulnar v ein, and basilic and cephalic veins. Findings: There is normal color flow, augmentation, and compressibility of all visualized vein segments. No carloz dence of deep venous thrombus is present. IMPRESSION: 1. No evidence of right upper extremity deep venous thrombosis. Electronically signed by: Kevin Cottrell DO (02/15/2022 8:07 AM) [id number]
[2022-02-15] MEDS ORDERED: ACETAMINOPHEN 325 MG TABLET PO PRN (09:00)
[2022-02-15] MEDS ORDERED: ONDANSETRON PF 4 MG/2 ML VIAL. IVP PRN (09:00)
[2022-02-15] MEDS ORDERED: VANCOMYCIN 2 GM in IV NORMAL SALINE 500ML 500 ML IV ONE (09:15)
[2022-02-15 10:04] LABS: INFLUENZA A PATIENT NEGATIVE (NEGATIVE); INFLUENZA B PATIENT NEGATIVE (NEGATIVE)
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
[2022-02-15 11:40] VITALS: BP 126/80
[2022-02-15] MEDS ORDERED: VANCOMYCIN 1.25 GM in IV NORMAL SALINE 250ML 250 ML IV SCH (14:00)
[2022-02-15 15:35] VITALS: BP 96/57
[2022-02-15] MEDS: IBUPROFEN 800 MG TABLET. PO PRN (18:32)
[2022-02-15 19:30] VITALS: BP 97/62
[2022-02-15] MEDS: HYDROXYCHLOROQUINE 200 MG TABLET PO SCH (21:05)
[2022-02-15] MEDS: APIXABAN 5 MG TABLET. PO SCH (21:05)
[2022-02-15 23:00] VITALS: BP 113/70
[2022-02-15] MEDS: VANCOMYCIN 1 GM in IV NORMAL SALINE 250ML 250 ML IV SCH (23:10)
[2022-02-16] MEDS: HYDROcodone/APAP 10/325 1 TAB TABLET PO PRN ×3 (02:30→15:37)
[2022-02-16 05:40] VITALS: BP 95/60
[2022-02-16] MEDS: HYDROXYCHLOROQUINE 200 MG TABLET PO SCH ×2 (08:30→21:06)
[2022-02-16] MEDS: APIXABAN 5 MG TABLET. PO SCH ×2 (08:30→21:06)
[2022-02-16] MEDS: LACTOBACILLUS RHAMNOSUS GG 1 CAPSULE. PO SCH ×2 (08:30→21:06)
[2022-02-16] MEDS: VANCOMYCIN 1 GM in IV NORMAL SALINE 250ML 250 ML IV SCH ×2 (10:41→23:32)
[2022-02-16 10:58] VITALS: BP 105/64
[2022-02-16] MEDS: IBUPROFEN 800 MG TABLET. PO PRN (15:37)
[2022-02-16 19:16] VITALS: BP 111/73
--- NOTE | 2022-02-16 22:27 | PN ---
DATE: 02/16/2022 ATTENDING PHYSICIAN: Dr. Coombs. SUBJECTIVE: Very flat affect. Multiple somatic complaints. Swelling in the right hand middle finger is better. OBJECTIVE FINDINGS: VITAL SIGNS: Blood pressure this morning is 113/70 mmHg, pulse is 73 and regular. She is afebrile. Oxygen saturation 95% on room air. HEENT: Head is without trauma. Pupils are reactive. Sclerae nonicteric. Oropharynx is clear. NECK: Supple, no bruits. LUNGS: Good breath sounds. CARDIOVASCULAR: Showed regular heart tones. ABDOMEN: Soft. EXTREMITIES: Showed swelling of the middle finger of the right hand to be diminished. It is not as tight. The redness and erythema is dissipating. PSYCHIATRIC: Affect is quite flat, depressed. ASSESSMENT: 1. A 51-year-old female with cellulitis of the right hand and middle finger, refractory to outpatient care. 2. Underlying schizoaffective disorder. 3. Bipolar depression. 4. Noncompliance of meds. 5. History of hypercoagulable state and history of factor V Leiden deficiency. PLAN: 1. Continue vancomycin as ordered. 2. Vancomycin trough before tonight's fourth dose. 3. Serial chemistries. 4. Pain control. 5. Continue home meds. AILEEN DR: EDGAR/tomas TID: [id number]
[2022-02-16 22:30] LABS: BASO % 1 % (0-3); EOS # 0.1 x10^3/uL (0.0-0.7); EOS % 1 % (0-3); HEMATOCRIT 35.1 % (36.0-47.0); HEMOGLOBIN 11.5 g/dL (12.0-15.5); LYMPH # 1.8 x10^3/uL (1.0-4.8); LYMPH % 30 % (24-48); MEAN CORPUSCULAR HEMOGLOBIN 28 pg (25-35); MEAN CORPUSCULAR HGB CONC 33 g/dL (31-37); MEAN CORPUSCULAR VOLUME 85 fL (79-100); MONO # 0.3 x10^3/uL (0.0-1.1); MONO % 5 % (0-9); NEUT # 3.7 x10^3uL (1.8-7.7); NEUT % 63 % (31-73); PLATELET COUNT 253 x10^3/uL (140-400); RED BLOOD COUNT 4.11 x10^6/uL (3.50-5.40); RED CELL DISTRIBUTION WIDTH 13.7 % (11.5-14.5); WHITE BLOOD COUNT 5.9 x10^3/uL (4.0-11.0)
[2022-02-16 22:40] LABS: CALCIUM 8.7 mg/dL (8.5-10.1); CREATININE 0.8 mg/dL (0.6-1.0); GFR 76.2; POTASSIUM 4.5 mmol/L (3.5-5.1)
[2022-02-16 22:45] LABS: VANC TR 10.7 mcg/mL (10.0-20.0)
[2022-02-16 23:28] VITALS: BP 121/82
[2022-02-17 03:01] VITALS: BP 99/64
[2022-02-17 05:51] VITALS: BP 116/76
[2022-02-17] MEDS: APIXABAN 5 MG TABLET. PO SCH ×2 (08:34→21:11)
[2022-02-17] MEDS: LACTOBACILLUS RHAMNOSUS GG 1 CAPSULE. PO SCH ×3 (08:34→21:11)
[2022-02-17] MEDS: HYDROcodone/APAP 10/325 1 TAB TABLET PO PRN ×2 (08:35→16:35)
[2022-02-17] MEDS: HYDROXYCHLOROQUINE 200 MG TABLET PO SCH ×2 (08:35→21:11)
--- NOTE | 2022-02-17 08:56 | PN ---
DATE: 02/17/2022 ATTENDING PHYSICIAN: Dr. Coombs SUBJECTIVE: Pain in right hand and middle finger. OBJECTIVE FINDINGS: VITAL SIGNS: Blood pressure is 120/82. She is afebrile. Oxygen saturation 95% on room air. HEENT: Head is without trauma. Pupils are reactive. Sclerae nonicteric. Oropharynx clear. NECK: Supple. LUNGS: Good breath sounds, otherwise clear. CARDIOVASCULAR: Regular heart tones. ABDOMEN: Soft. No guarding. EXTREMITIES: Showed minimal erythema and decreased range of motion of the right middle finger. The redness and erythema is dissipating. Affect is flat and somewhat confrontational. ASSESSMENT: 1. A 51-year-old female with cellulitis of the right hand and middle finger refractory to outpatient care, improved with IV antibiotics. 2. Underlying schizoaffective disorder. 3. Bipolar depression. 4. Noncompliance of meds. 5. History of continued tobacco addiction. 6. History of hypercoagulable state and factor V Leiden deficiency. PLAN: 1. Continue antibiotics as ordered. The vancomycin trough level was therapeutic. 2. Serial chemistries. 3. Pain control. EDGAR/DEBORAH DR: EDGAR/tomas TID: [id number]
[2022-02-17] MEDS: VANCOMYCIN 1 GM in IV NORMAL SALINE 250ML 250 ML IV SCH ×2 (10:50→23:23)
[2022-02-17 11:50] VITALS: BP 130/76
[2022-02-17 15:42] VITALS: BP 129/83
[2022-02-17] MEDS: IBUPROFEN 800 MG TABLET. PO PRN (16:34)
[2022-02-17 19:35] VITALS: BP 106/68
[2022-02-17] MEDS ORDERED: RIZA10TA7 PO (19:50)
[2022-02-17] MEDS ORDERED: SUMAtriptan SUCCINATE 50 MG TABLET PO PRN (20:00)
[2022-02-17] MEDS ORDERED: RELPAX PO PRN (21:15)
[2022-02-17 23:17] VITALS: BP 104/67
[2022-02-18] MEDS ORDERED: MELATONIN 3 MG TABLET PO PRN (01:30)
[2022-02-18 05:53] VITALS: BP 110/67
[2022-02-18 06:04] LABS: CALCIUM 8.8 mg/dL (8.5-10.1); CREATININE 0.6 mg/dL (0.6-1.0); GFR 106.3; POTASSIUM 4.1 mmol/L (3.5-5.1)
[2022-02-18] MEDS: LACTOBACILLUS RHAMNOSUS GG 1 CAPSULE. PO SCH (08:32)
[2022-02-18] MEDS: APIXABAN 5 MG TABLET. PO SCH (08:32)
[2022-02-18] MEDS: HYDROXYCHLOROQUINE 200 MG TABLET PO SCH (08:33)
[2022-02-18] MEDS: HYDROcodone/APAP 10/325 1 TAB TABLET PO PRN (08:37)
--- NOTE | 2022-02-18 12:10 | DS ---
DATE OF DISCHARGE: 02/18/2022 ATTENDING PHYSICIAN: Dr. Coombs. FINAL DISCHARGE DIAGNOSES: 1. Cellulitis of the right hand and middle finger refractory to outpatient care. 2. Underlying schizoaffective disorder. 3. Bipolar depression. 4. Noncompliance of meds. 5. Continued tobacco addiction. 6. History of hypercoagulable state and factor V Leiden deficiency. 7. Questionable history of lupus. I do believe she may have diagnosed at one time of the lupus anticoagulant, now known as the antiphospholipid antibody syndrome. HISTORY AND PHYSICAL: The patient is a 51-year-old female with multiple medical and psychiatric issues. She has an infection of the right hand, redness, erythema, swelling of the right middle finger. No abscess identified. She is not diabetic yet. She has been in the Emergency Department every day for the past 3 days. Outpatient antibiotics has been refractory. She was admitted for inpatient care and IV antibiotics. PHYSICAL EXAMINATION: Please see my dictated note. PERTINENT LABORATORY AND X-RAY STUDIES: The admission hemoglobin was 11.3 g/dL with a white count of 7100. Electrolytes within normal range. Nonfasting blood sugar 100 and her creatinine was 0.6 mg/dL. Serology negative for coronavirus. COURSE IN THE HOSPITAL: The patient was admitted. She had a toxicology screen, which was positive for amphetamines as well as opiates. She was started on intravenous vancomycin. Vancomycin trough was therapeutic. She received a total of four full days of intravenous antibiotics. Swelling came down in a controlled setting. On the fourth hospital day, she had numerous somatic complaints and wanted to go home to smoke. I wrote scripts for Levaquin 750 p.o. daily for 7 days as well as doxycycline 100 mg b.i.d. She has allergies to PENICILLINS and SULFA DRUGS. Her other meds are unchanged. She should continue her scheduled Eliquis, Neurontin, hydrocodone p.r.n., hydroxyzine and rizatriptan for migraines. For now, we stopped her clindamycin. She was discharged then from our hospital in stable condition with explicit drug and followup care. Total discharge time 41 minutes. EDGAR/ARIELLE DR: Abhi TID: [id number] CC: Philomena Vela
== END 2022-02-18 09:55 | disposition home or self-care (01) | DRG 603 ==
LOC: ER 04:43 → INTOOBSV 09:01 → OBSVTOIN 09:01 → ER HOLD 09:01 → 1 SOUTH 10:10
PROVIDERS: ADMIT Hospitalist; ATTEND Hospitalist
DX: L03.113 Cellulitis of right upper limb (principal); F31.30 Bipolar disorder, current episode depressed, mild or moderate severity, unspecified; D68.62 Lupus anticoagulant syndrome; E11.40 Type 2 diabetes mellitus with diabetic neuropathy, unspecified; F17.210 Nicotine dependence, cigarettes, uncomplicated; F25.9 Schizoaffective disorder, unspecified; F41.1 Generalized anxiety disorder; G43.909 Migraine, unspecified, not intractable, without status migrainosus; L03.019 Cellulitis of unspecified finger; Z79.01 Long term (current) use of anticoagulants; Z86.711 Personal history of pulmonary embolism; Z86.718 Personal history of other venous thrombosis and embolism; Z88.0 Allergy status to penicillin; Z91.14 Patient's other noncompliance with medication regimen; Z91.19 Patient's noncompliance with other medical treatment and regimen; F41.9 Anxiety disorder, unspecified; Z88.8 Allergy status to other drugs, medicaments and biological substances; Z20.822 Contact with and (suspected) exposure to COVID-19; Z79.899 Other long term (current) drug therapy
CPT/HCPCS: 36415; 73130; 80048; 80202; 80307; 81001; 82550; 83605; 85025; 87040; 87086; 87428; 93005; 93971; 96361; 96365; 96366; 96367; 96375; J3010; J3370; J3490; J7040; J7050; J7120; U0003; 99285-25